=== PATIENT | male | born 1970 | race African-American/Black ===

== ENCOUNTER → 2016-02-29 | Outpatient (RCR) | payer MEDICAID ==
[2015-12-01 13:39] LABS: BASOPHILS # (AUTO) 0.1 10^3/uL (0.0-0.1); BASOPHILS % (AUTO) 1 % (0-10); EOSINOPHILS # (AUTO) 0.5 10^3/uL (0.0-0.3); EOSINOPHILS % (AUTO) 6 % (0-10); LYMPHOCYTES # (AUTO) 1.4 X 10^3 (1.0-4.0); LYMPHOCYTES % (AUTO) 18 % (12-44); MEAN CORPUSCULAR HEMOGLOBIN 26 PG (25-34); MEAN CORPUSCULAR HGB CONC 32 G/DL (32-36); MEAN CORPUSCULAR VOLUME 82 FL (80-99); MEAN PLATELET VOLUME 10.2 FL (7.4-10.4); MONOCYTES # (AUTO) 0.8 X 10^3 (0.0-1.0); MONOCYTES % (AUTO) 10 % (0-12); NEUTROPHILS # (AUTO) 5.3 X 10^3 (1.8-7.8); NEUTROPHILS % (AUTO) 66 % (42-75); PLATELET COUNT 290 10^3/uL (130-400); RED CELL DISTRIBUTION WIDTH 14.1 % (10.0-14.5); WHITE BLOOD COUNT 8.1 10^3/uL (4.3-11.0)
[2015-12-01 14:36] LABS: ALBUMIN 3.5 G/DL (3.2-4.5); BILIRUBIN,TOTAL 0.3 MG/DL (0.1-1.0); CALCIUM 8.6 MG/DL (8.5-10.1); CREATININE SERUM 4.54 MG/DL (0.60-1.30); POTASSIUM 4.1 MMOL/L (3.6-5.0); TOTAL PROTEIN 6.3 G/DL (6.4-8.2)
[2015-12-01 15:26] LABS: RED BLOOD COUNT 3.3 10^6/uL (4.35-5.85); RETICULOCYTE % 3.13 % (0.50-2.40)
[2015-12-01 17:06] LABS: %SAT TOTAL IRON BINDING CAPIC 18 % (15-50); TIBC 280 ug/dL (280-380)
[2015-12-02 07:42] LABS: UIBC 230 ug/dL (55-450)
[2015-12-02 07:43] LABS: FERRITIN 239 ng/mL (25-300)
[2015-12-16 10:43] LABS: BASOPHILS # (AUTO) 0.1 10^3/uL (0.0-0.1); BASOPHILS % (AUTO) 1 % (0-10); EOSINOPHILS # (AUTO) 0.4 10^3/uL (0.0-0.3); EOSINOPHILS % (AUTO) 5 % (0-10); LYMPHOCYTES # (AUTO) 1.5 X 10^3 (1.0-4.0); LYMPHOCYTES % (AUTO) 16 % (12-44); MEAN CORPUSCULAR HGB CONC 32 G/DL (32-36); MEAN CORPUSCULAR VOLUME 83 FL (80-99); MONOCYTES # (AUTO) 0.9 X 10^3 (0.0-1.0); MONOCYTES % (AUTO) 10 % (0-12); NEUTROPHILS # (AUTO) 6.3 X 10^3 (1.8-7.8); NEUTROPHILS % (AUTO) 69 % (42-75); PLATELET COUNT 220 10^3/uL (130-400); RED BLOOD COUNT 3.59 10^6/uL (4.35-5.85); WHITE BLOOD COUNT 9.2 10^3/uL (4.3-11.0)
[2015-12-16 10:48] LABS: MEAN CORPUSCULAR HEMOGLOBIN 26 PG (25-34)
[2015-12-16 11:46] LABS: ALBUMIN 3.8 G/DL (3.2-4.5); BILIRUBIN,TOTAL 0.4 MG/DL (0.1-1.0); CALCIUM 9.4 MG/DL (8.5-10.1); CREATININE SERUM 5.08 MG/DL (0.60-1.30); POTASSIUM 4.6 MMOL/L (3.6-5.0); TOTAL PROTEIN 6.8 G/DL (6.4-8.2)
[2016-02-19 10:26] LABS: BASOPHILS # (AUTO) 0.1 10^3/uL (0.0-0.1); BASOPHILS % (AUTO) 1 % (0-10); EOSINOPHILS # (AUTO) 0.6 10^3/uL (0.0-0.3); EOSINOPHILS % (AUTO) 10 % (0-10); LYMPHOCYTES # (AUTO) 1.3 X 10^3 (1.0-4.0); LYMPHOCYTES % (AUTO) 22 % (12-44); MEAN CORPUSCULAR HEMOGLOBIN 26 PG (25-34); MEAN CORPUSCULAR HGB CONC 33 G/DL (32-36); MEAN CORPUSCULAR VOLUME 79 FL (80-99); MEAN PLATELET VOLUME 11.6 FL (7.4-10.4); MONOCYTES # (AUTO) 0.4 X 10^3 (0.0-1.0); MONOCYTES % (AUTO) 7 % (0-12); NEUTROPHILS # (AUTO) 3.6 X 10^3 (1.8-7.8); NEUTROPHILS % (AUTO) 60 % (42-75); PLATELET COUNT 200 10^3/uL (130-400); RED BLOOD COUNT 4.94 10^6/uL (4.35-5.85); RED CELL DISTRIBUTION WIDTH 14.4 % (10.0-14.5)
[2016-02-19 10:50] LABS: ALBUMIN 3.8 G/DL (3.2-4.5); BILIRUBIN,TOTAL 0.4 MG/DL (0.1-1.0); CALCIUM 8.9 MG/DL (8.5-10.1); CREATININE SERUM 5.55 MG/DL (0.60-1.30); POTASSIUM 3.8 MMOL/L (3.6-5.0); TOTAL PROTEIN 6.9 G/DL (6.4-8.2)
[~2016-02-29] MED LIST: ACHYD1T PO; AGM875T PO; ALB0.5V; ALBU17AE3 IH; ALBU2.5V4 INH; ALBU2.5V4 NEB; AMLO10TA PO; AMLO5TAB2 PO; ASP81CT PO; ASPI-892 PO; ATEN-147 PO; ATEN50TA PO; AZIT-21 PO; Azithromycin PO; BUDE6HFA IH; BUDE6HFA INH; CEFD300C3 PO; CLON0.2T PO; CLON0.2T12 PO; DOXY-13 PO; DOXY100C2 PO; DULO30CA3 PO; FAMO20TA5 PO; FLUT1AER IH; FURO40TA4 PO; FURO80TA3 PO; GABA600T PO; GABA600T2 PO; GBPN600T PO; GLYB5TAB3 PO; GLYB5TAB6 PO; GUAI120013 PO; HYDR-3922 PO; Hydralazine Hcl PO; INSU100I14 SQ; INSU100V5 SQ; INSU300I SQ; IPRA3AMP IH; LISI10TA PO; LISI10TA2 PO; LISI1TAB78 PO; LISI40TA PO; Lisinopril PO; MAGN400T29 PO; METO10TA7 PO; METO200T32 PO; MINO2.5T PO; MONT10TA21 PO; MONT10TA24 PO; MTL5T PO; Metoprolol Succinate PO; NAPR-243 PO; ONDA8TAB6 PO; OXYC-272 PO; OXYC-465 PO; OXYC30TA80 PO; PRD20T PO; PRED10TA PO; Prednisone PO; SULF1TAB38 PO; SUMA100T3 PO; TEST200V27 INJ; TRAM50TA2 PO; neurontin; oxycodone
== END | disposition home or self-care (01) ==
LOC: ONC 12-01 13:14
PROVIDERS: ATTEND Internal Medicine Hematology & Oncology
DX: D50.9 Iron deficiency anemia, unspecified (principal); N28.89 Other specified disorders of kidney and ureter; E11.22 Type 2 diabetes mellitus with diabetic chronic kidney disease; I12.9 Hypertensive chronic kidney disease with stage 1 through stage 4 chronic kidney disease, or unspecified chronic kidney disease; N18.9 Chronic kidney disease, unspecified; J45.909 Unspecified asthma, uncomplicated; E66.01 Morbid (severe) obesity due to excess calories; Z68.41 Body mass index [BMI] 40.0-44.9, adult; Z79.4 Long term (current) use of insulin; Z79.899 Other long term (current) drug therapy
CPT/HCPCS: 36415; 80053; 82728; 83540; 83735; 85025; 85045; 93005; 99213

== ENCOUNTER 2016-03-25 14:19 | Outpatient (RCR) | payer MEDICAID ==
[2016-03-07 12:31] LABS: BASOPHILS # (AUTO) 0.1 10^3/uL (0.0-0.1); BASOPHILS % (AUTO) 1 % (0-10); EOSINOPHILS # (AUTO) 0.3 10^3/uL (0.0-0.3); EOSINOPHILS % (AUTO) 5 % (0-10); LYMPHOCYTES # (AUTO) 1.7 X 10^3 (1.0-4.0); LYMPHOCYTES % (AUTO) 30 % (12-44); MEAN CORPUSCULAR HEMOGLOBIN 26 PG (25-34); MEAN CORPUSCULAR HGB CONC 35 G/DL (32-36); MEAN CORPUSCULAR VOLUME 75 FL (80-99); MEAN PLATELET VOLUME 10.4 FL (7.4-10.4); MONOCYTES # (AUTO) 0.5 X 10^3 (0.0-1.0); MONOCYTES % (AUTO) 9 % (0-12); NEUTROPHILS # (AUTO) 3.2 X 10^3 (1.8-7.8); NEUTROPHILS % (AUTO) 56 % (42-75); PLATELET COUNT 316 10^3/uL (130-400); RED BLOOD COUNT 5.23 10^6/uL (4.35-5.85); RED CELL DISTRIBUTION WIDTH 14.4 % (10.0-14.5); WHITE BLOOD COUNT 5.7 10^3/uL (4.3-11.0)
[2016-03-07 13:40] LABS: ALBUMIN 3.8 G/DL (3.2-4.5); BILIRUBIN,TOTAL 0.4 MG/DL (0.1-1.0); CALCIUM 8.1 MG/DL (8.5-10.1); CREATININE SERUM 5.52 MG/DL (0.60-1.30); POTASSIUM 3.7 MMOL/L (3.6-5.0); TOTAL PROTEIN 6.7 G/DL (6.4-8.2)
[2016-03-18 09:35] LABS: BASOPHILS % (AUTO) 1 % (0-10); EOSINOPHILS # (AUTO) 0.2 10^3/uL (0.0-0.3); EOSINOPHILS % (AUTO) 3 % (0-10); LYMPHOCYTES # (AUTO) 1.5 X 10^3 (1.0-4.0); LYMPHOCYTES % (AUTO) 28 % (12-44); MEAN CORPUSCULAR HEMOGLOBIN 26 PG (25-34); MEAN CORPUSCULAR HGB CONC 35 G/DL (32-36); MEAN CORPUSCULAR VOLUME 76 FL (80-99); MEAN PLATELET VOLUME 11.9 FL (7.4-10.4); MONOCYTES # (AUTO) 0.4 X 10^3 (0.0-1.0); MONOCYTES % (AUTO) 6 % (0-12); NEUTROPHILS # (AUTO) 3.5 X 10^3 (1.8-7.8); NEUTROPHILS % (AUTO) 62 % (42-75); PLATELET COUNT 210 10^3/uL (130-400); RED BLOOD COUNT 5.26 10^6/uL (4.35-5.85); RED CELL DISTRIBUTION WIDTH 14.4 % (10.0-14.5); WHITE BLOOD COUNT 5.6 10^3/uL (4.3-11.0)
[2016-03-18 09:52] LABS: ALBUMIN 3.6 G/DL (3.2-4.5); BILIRUBIN,TOTAL 0.4 MG/DL (0.1-1.0); CALCIUM 7.3 MG/DL (8.5-10.1); CREATININE SERUM 7.01 MG/DL (0.60-1.30); POTASSIUM 3.1 MMOL/L (3.6-5.0); TOTAL PROTEIN 6.7 G/DL (6.4-8.2)
[2016-03-25 14:33] LABS: BASOPHILS # (AUTO) 0.1 10^3/uL (0.0-0.1); BASOPHILS % (AUTO) 1 % (0-10); EOSINOPHILS # (AUTO) 0.4 10^3/uL (0.0-0.3); EOSINOPHILS % (AUTO) 10 % (0-10); LYMPHOCYTES # (AUTO) 1.7 X 10^3 (1.0-4.0); LYMPHOCYTES % (AUTO) 46 % (12-44); MEAN CORPUSCULAR HEMOGLOBIN 27 PG (25-34); MEAN CORPUSCULAR HGB CONC 35 G/DL (32-36); MEAN CORPUSCULAR VOLUME 76 FL (80-99); MEAN PLATELET VOLUME 10.6 FL (7.4-10.4); MONOCYTES # (AUTO) 0.3 X 10^3 (0.0-1.0); MONOCYTES % (AUTO) 7 % (0-12); NEUTROPHILS # (AUTO) 1.4 X 10^3 (1.8-7.8); NEUTROPHILS % (AUTO) 36 % (42-75); PLATELET COUNT 131 10^3/uL (130-400); RED BLOOD COUNT 4.89 10^6/uL (4.35-5.85); RED CELL DISTRIBUTION WIDTH 14.8 % (10.0-14.5); WHITE BLOOD COUNT 3.8 10^3/uL (4.3-11.0)
[2016-03-25 14:52] LABS: ALBUMIN 3.6 G/DL (3.2-4.5); BILIRUBIN,TOTAL 0.6 MG/DL (0.1-1.0); POTASSIUM 3.1 MMOL/L (3.6-5.0); TOTAL PROTEIN 6.5 G/DL (6.4-8.2)
== END 2016-06-05 | disposition home or self-care (01) ==
LOC: ONC 14:19
PROVIDERS: ATTEND Internal Medicine Hematology & Oncology
DX: D50.9 Iron deficiency anemia, unspecified (principal); N28.89 Other specified disorders of kidney and ureter; E11.22 Type 2 diabetes mellitus with diabetic chronic kidney disease; I12.9 Hypertensive chronic kidney disease with stage 1 through stage 4 chronic kidney disease, or unspecified chronic kidney disease; N18.9 Chronic kidney disease, unspecified; J45.909 Unspecified asthma, uncomplicated; E66.01 Morbid (severe) obesity due to excess calories; Z68.41 Body mass index [BMI] 40.0-44.9, adult; Z79.4 Long term (current) use of insulin; Z79.899 Other long term (current) drug therapy
CPT/HCPCS: 36415; 80053; 85025

== ENCOUNTER → 2016-05-11 | Outpatient (CLI) | payer MEDICARE, MEDICAID ==
--- NOTE | 2016-05-11 16:11 | Diagnostic Imaging Report ---
PROCEDURE: CT chest, abdomen, and pelvis without contrast. TECHNIQUE: Multiple contiguous axial images were obtained through the chest, abdomen, and pelvis without the use of intravenous contrast. INDICATION: Lung nodules. The previous CT chest exam performed on 12/22/15 noted multiple bilateral pulmonary nodules. These nodules had increased in size and number since the prior CT chest exam of 04/21/15. FINDINGS: On this exam, the pulmonary nodules are again identified. On the prior exam, there is a 5.6 mm nodule in the right upper lobe and a second slightly smaller nodule nearby. On this exam, the 5.6 mm nodule is again identified and essentially no different. However, the other nodule is not well visualized. The 3.3 mm nodule in the right upper lobe and the 5.4 mm nodule in the right midlung seen previously cannot be visualized with certainty either. The 3 minute nodules along the periphery of the right lung base seen previously are again evident but do seem slightly less conspicuous than on the prior exam. The 14.3 mm pleural-based nodule along the periphery of the right lower lobe seen previously has decreased in size and now measures 9.8 mm. The previous study also identified a 5.8 mm nodule in the left upper lung. This now measures only 3 mm. The 4 mm nodule in this area seen previously is difficult to identify. The 5 mm nodule in the lingula seen previously has decreased in size and now measures 3.6 mm. The previous study did also reveal a few nodes in the right paratracheal region. These had a conglomerate size of approximately 16.2 x 22.7 mm. Those nodes are much smaller on this exam and now measure 6.7 x 12.2 mm. The mediastinal stranding noted on the previous study is also less conspicuous on this exam. The heart is stable in size. The aorta is not abnormally dilated. The thyroid gland is generally unremarkable. The lungs are clear. There is no sign of failure, pneumonia or pleural effusion. The images through the abdomen do show that in the interval since the previous CT chest and abdomen exam of 04/21/15, a sizable 4.4 x 7.5 cm soft tissue density has developed between the umbilicus and the anterior abdominal wall. This finding is of uncertain etiology. This could be secondary to scar formation as the previous exam did note a ventral hernia. The hernia appears to have been repaired in the interval since the prior exam. Correlation with the patient's history. It would be less likely that this is related to a neoplastic mass. Also, in the interval since the prior exam, a peritoneal dialysis catheter has been inserted on the right. The tip of the catheter is in the right lower quadrant. The 1.9 cm exophytic rounded area of diminished density along the anterior aspect of the right kidney seen previously is again evident and no different. The kidneys are otherwise unchanged. There is perinephric stranding about both kidneys. This is similar to the prior study. The liver, spleen, pancreas, adrenals, gallbladder, aorta and inferior vena cava are unremarkable for an acute abnormality. A very small collection of fluid has developed along the periphery of the right lobe of the liver. The stomach is not well distended and consequently difficult to assess. The images through the pelvis show no sign of a pelvic mass or of a free fluid collection. The urinary bladder and prostate gland are grossly unremarkable. The appendix was not particularly well visualized. The bone windows show no sign of a fracture or of a destructive lesion. IMPRESSION: 1. The appearance of the chest has improved as the pulmonary nodules seen on the prior exam have decreased in size. There is no acute cardiopulmonary abnormality identified. 2. In the interval since the prior exam, there has been repair of the ventral hernia seen on the previous study of 04/21/15. The sizable soft tissue density interposed now between the umbilicus and the anterior abdominal wall is probably secondary to scar formation. If further evaluation of this area is desired, then ultrasound would be recommended. 3. There has also been interval insertion of a peritoneal dialysis catheter. The distal portion of the catheter is coiled on itself in the right lower quadrant. 4. There is no acute abnormality of the abdomen or pelvis. 5. The exophytic nodule along the right kidney seen previously is again evident and no different. Dictated by: Dictated on workstation # [id number]
== END ==
LOC: RAD 12:47
PROVIDERS: ATTEND Internal Medicine Hematology & Oncology
DX: R91.8 Other nonspecific abnormal finding of lung field (principal); N28.9 Disorder of kidney and ureter, unspecified; C64.9 Malignant neoplasm of unspecified kidney, except renal pelvis; C78.00 Secondary malignant neoplasm of unspecified lung; Z96.89 Presence of other specified functional implants
CPT/HCPCS: 71250; 74176

== ENCOUNTER → 2016-08-23 | Outpatient (CLI) | payer MEDICARE, MEDICAID ==
[~2016-08-23] MED LIST changes: -METO200T32 PO; +METO200T4 PO
--- NOTE | 2016-08-23 11:04 | Diagnostic Imaging Report ---
PROCEDURE: CT chest, abdomen, and pelvis without contrast. TECHNIQUE: Multiple contiguous axial images were obtained through the chest, abdomen, and pelvis without the use of intravenous contrast. INDICATION: Renal cell carcinoma, followup. COMPARISON: 05/11/2016. FINDINGS: CT CHEST: There is diminished nodule previously seen in the lateral aspect of the right lung base, now reduced to a curvilinear line which may represent the remaining focal scar. There is a 4 mm nodule in the lateral aspect of the right lower lobe just posterior to the major fissure, axial image 37 without change from the previous study. There is also a 5 mm nodule in the lingula, image 38 without significant change from the previous scan. There is mild atelectasis in the lung bases. No significant consolidation. No pleural effusion. There is a tiny pericardial effusion. The heart size is normal. No significantly enlarged lymph nodes in the mediastinum. The lokesh are not opacified on this unenhanced exam with no obvious hilar mass or lymphadenopathy. No axillary lymphadenopathy. Bilateral gynecomastia is seen. The osseous structures demonstrate mild degenerative changes. CT ABDOMEN AND PELVIS: The liver, the spleen, the pancreas and the adrenal glands appear grossly unremarkable for unenhanced exam. There is a 2.2 cm anteriorly exophytic lesion arising from the anterior aspect of the right kidney with measurements obtained in the transverse dimension as the interface with the kidney is not delineated on this unenhanced exam. There is question of minimal increase in size compared to 1.9 cm measurement previously. There is no hydronephrosis. No urinary tract stone is seen. The urinary bladder is associated with wall thickening similar to 05/11/2016 exam. There is minimal amount of ascites, expected finding with a peritoneal dialysis catheter in place. There is also an abdominal wall fluid collection which appears to be between the abdominal wall deep layers but does not extend deep to a suggested mesh. This is probably a seroma and measures 5.6 x 2.9 x 4.5 cm and appears unchanged. There is no evidence of hernia recurrence, however there is abdominal wall laxity and diastasis of the recti seen. The abdominal aorta is normal in caliber. No paraaortic significantly enlarged lymph nodes are seen. The osseous structures demonstrate mild degenerative changes at the SI joints with no destructive mass seen. IMPRESSION: CT CHEST: 1. Near-complete resolution of previously seen 1 cm right lower lobe nodule with remaining curvilinear density suggestive of scarring. 2. Stable nonspecific nodules measuring 4 mm in the right lower lobe and 5 mm in the lingula. CT ABDOMEN AND PELVIS: 1. Suggestion of minimal enlargement in the right kidney mass, exophytic anteriorly. 2. Stable thickening in the urinary bladder wall could relate to cystitis or chronic postobstructive changes. 3. Unchanged fluid collection along the abdominal wall, presumably a seroma. Dictated by: Dictated on workstation # [id number]
== END ==
LOC: RAD 07:36
PROVIDERS: ATTEND Internal Medicine Hematology & Oncology
DX: R91.8 Other nonspecific abnormal finding of lung field (principal); C64.1 Malignant neoplasm of right kidney, except renal pelvis
CPT/HCPCS: 71250; 74176

== ENCOUNTER → 2016-12-22 | Outpatient (CLI) | payer MEDICARE, MEDICAID ==
--- NOTE | 2016-12-22 16:31 | Diagnostic Imaging Report ---
PROCEDURE: CT chest, abdomen, and pelvis without contrast. TECHNIQUE: Multiple contiguous axial images were obtained through the chest, abdomen, and pelvis without the use of intravenous contrast. INDICATION: Kidney cancer. Surveillance imaging. COMPARISON: 08/23/2016. CT CHEST FINDINGS: No endoluminal lesion in the trachea or central bronchi. No pulmonary mass or consolidation. There is a round 4 mm nodule within the right middle lobe, which is either new or increasing in size since prior examination. 4 mm nodule in the anterior aspect of the right lower lobe is unchanged. The 5 mm nodule seen in the lingula has resolved. Additional scattered punctate nodules in the lung bases are stable. Thyroid is normal. No supraclavicular or axillary lymphadenopathy. No mediastinal, discrete hilar, or juxtaphrenic lymphadenopathy. Heart is normal in size without pericardial effusion. Normal caliber thoracic aorta. No pleural effusion or pneumothorax. No concerning focal osseous lesions. IMPRESSION: 1. New or enlarging 4 mm nodule within the right middle lobe is now present. There are additional numerous small round micronodules in the lung bases that are unchanged. Attention on followup imaging is advised as this could represent a metastatic focus, although an inflammatory/infectious nodule could also have this appearance. CT ABDOMEN AND PELVIS FINDINGS: Evaluation of the abdominal viscera is limited without IV contrast. Allowing for this, the unenhanced liver, gallbladder, spleen, and pancreas are grossly normal. The isodense ovoid mass in the upper pole of the right kidney is unchanged measuring approximately 2.1 cm in transverse dimension. No new discrete renal mass by noncontrast imaging. No obstructive uropathy or urinary tract calculi. Urinary bladder is decompressed, limiting evaluation. No pericolonic inflammatory changes. A percutaneous catheter is in place likely representing a peritoneal dialysis catheter. There is no loculated fluid around the tip of the catheter to indicate pseudocyst formation. The mildly complicated fluid collection in the midline of the lower abdomen is stable in size measuring approximately 5 x 2.5 cm. An adjacent small fat-containing ventral hernia is unchanged. No abdominal lymphadenopathy. Numerous borderline enlarged bilateral inguinal lymph nodes are unchanged. No concerning osseous abnormality in the abdomen or pelvis. IMPRESSION: 1. Stable size of right renal mass. 2. No evidence of intra-abdominal lymphadenopathy or other changes of intra-abdominal metastases. 3. Midline subcutaneous fluid collection is unchanged and likely represents a postoperative seroma. Dictated by: Dictated on workstation # [id number]
== END ==
LOC: RAD 13:29
PROVIDERS: ATTEND Internal Medicine Hematology & Oncology
DX: C64.9 Malignant neoplasm of unspecified kidney, except renal pelvis (principal); C78.00 Secondary malignant neoplasm of unspecified lung; R91.8 Other nonspecific abnormal finding of lung field
CPT/HCPCS: 71250; 74176

== ENCOUNTER → 2017-04-11 | Outpatient (CLI) | payer MEDICARE, MEDICAID ==
[~2017-04-11] MED LIST changes: -METO200T4 PO; +METO200T48 PO
--- NOTE | 2017-04-11 09:02 | Diagnostic Imaging Report ---
PROCEDURE: CT chest, abdomen, and pelvis without contrast. TECHNIQUE: Multiple contiguous axial images were obtained through the chest, abdomen, and pelvis without the use of intravenous contrast. INDICATION: History of renal cell carcinoma. Followup. COMPARISON: 12/22/2016 FINDINGS: CT chest: Multiple small pulmonary micronodules are again identified, bilaterally. Overall, size and distribution is stable. Reference 4 mm micronodule described in the right middle lobe on prior exam near the minor fissure is stable at 4 mm (image 30, series 2). No new dominant pulmonary nodule or mass is identified. There is no focal consolidation, pleural effusion, nor pneumothorax. Cardiomediastinal structures show normal heart size. There is small pericardial effusion. No pathologically enlarged or morphologically abnormal adenopathy is seen within the mediastinum, lokesh, nor axilla. Bony structures show age-related degenerative changes of the thoracic spine. No acute bony abnormalities are seen. Note is made of bilateral gynecomastia. CT abdomen: Partially exophytic mass type lesion is again identified arising from the anterior margins of the right kidney. It measures approximately 3.2 x 2.7 cm on today's exam. This is similar in comparison to similar measurements on prior study of 2.3 x 2.9 cm. There is persistent stranding of bilateral perirenal fat. This is stable compared to prior exam. No abnormal perirenal adenopathy is seen. Left kidney continues to have an unremarkable noncontrast CT appearance. The spleen, liver, adrenal glands, and pancreas have an unremarkable noncontrast CT appearance. The indwelling peritoneal dialysis catheter is noted. There is small amount of free air. There is no large amount of free fluid or loculated air-fluid collection. Periumbilical hernia is again identified. Note is again made of prominent density associated with the hernia, measuring approximately 4.9 x 3.9 cm. This is slightly decreased in size compared to 6.2 x 3 cm previously. Small amount of fluid is also noted within the hernia sac on the left. Bony structures show age-related degenerative changes. No acute osseous abnormalities are seen. CT pelvis: Urinary bladder is unopacified. No calculi are seen within the urinary bladder. There is no loculated fluid collection, free fluid or free air within the pelvis. No abnormal lymph nodes are identified. Bony structures show no acute abnormalities. IMPRESSION: 1. Multiple pulmonary micronodules are again identified, bilaterally. Overall size and distribution is stable. Additionally, reference lesion seen within the right middle lobe on prior exam is also stable. 2. Although the margins of the right renal mass are not well defined on today's exam given the lack of IV contrast, there does appear to have been some interval growth when compared to 12/22/2016. 3. Periumbilical hernia. Again, there is focal density adjacent to the hernia, which may be on a postsurgical basis. 4. Small amount of pneumoperitoneum; likely related to indwelling peritoneal dialysis catheter. Dictated by: Dictated on workstation # [id number]
== END ==
LOC: RAD 08:03
PROVIDERS: ATTEND Internal Medicine Hematology & Oncology
DX: C64.1 Malignant neoplasm of right kidney, except renal pelvis (principal); C78.02 Secondary malignant neoplasm of left lung; R91.8 Other nonspecific abnormal finding of lung field; K42.9 Umbilical hernia without obstruction or gangrene; Z99.2 Dependence on renal dialysis
CPT/HCPCS: 71250; 74176

== ENCOUNTER 2017-05-18 21:18 | Emergency (ER) | payer MEDICARE, MEDICAID ==
[~2017-05-18] VITALS: Ht 175.3 cm; Wt 135.4 kg
[~2017-05-18 21:18] MED LIST changes: -IPRA3AMP IH; +IPRA3AMP31 IH
--- NOTE | 2017-05-18 21:56 | ED Respiratory ---
General Chief Complaint: Respiratory Problems Stated Complaint: FEVER 103.9, STREP Nursing Triage Note: Patient reports being diagnosed with strep throat, on monday and started on a z-pack. patient reports that he has gotten worse since then and feels like he is having a hard time breathing. Source: patient Exam Limitations: no limitations History of Present Illness Date Seen by Provider: May 18, 2017 Time Seen by Provider: 21:54 Initial Comments To ER by with c/o fever up to 103.9 earlier today, nonproductive cough, shortness of breath on Monday05/15/17 he was seen at [facility] and diagnosed with strep throat via a positive rapid strep test. He was having a sore throat at the time. He was given Zithromax which he is still on. He states that his throat feels better but he now feels more short of breath and his fevers are persisting. 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 Follows with oncology at [facility]. He does do peritoneal dialysis at home nightly. Timing/Duration: constant Severity: moderate Modifying Factors: Improves With Coughing Associated Symptoms: shortness of breath, wheezing Allergies and Home Medications Allergies Coded Allergies: No Known Drug Allergies (Unverified , 08/05/15) Home Medications Albuterol 17 Gm Inh, 2 PUFF IH QID PRN for SHORTNESS OF BREATH, (Reported) Albuterol Sulfate 0.83 Mg/Ml Solution, 2.5 MG INH Q4H PRN for SHORTNESS OF BREATH, (Reported) Amlodipine Besylate 5 Mg Tablet, 5 MG PO DAILY, (Reported) Aspirin 81 Mg Tabec, 81 MG PO HS, (Reported) Fluticasone/Vilanterol 1 Each Blst.w.dev, 1 EACH IH DAILY, (Reported) Furosemide 40 Mg Tablet, 40 MG PO UD, (Reported) Takes Tues, Thurs, Sat, Sun Hydralazine HCl 10 Mg Tablet, 25 MG PO QID, (Reported) Insulin Aspart 100 Unit/1 Ml Insuln.pen, 15-30 UNITS SQ AC, (Reported) BASES ON FOOD INTAKE Insulin Glargine,Hum.rec.anlog 300 Unit/1 Ml Insuln.pen, 15 UNIT SQ 7PM, ( Reported) Metolazone 10 Mg Tablet, 10 MG PO DAILY, (Reported) Metoprolol Succinate 200 Mg Tab.er.24h, 100 MG PO BID, (Reported) Minoxidil 2.5 Mg Tablet, 2 TAB PO BID Prescribed by: ARDEN JAUREGUI on 01/12/16 0835 Montelukast Sodium 10 Mg Tablet, 10 MG PO HS, (Reported) Ondansetron HCl 8 Mg Tablet, 8 MG PO PRN, (Reported) Oxycodone HCl 30 Mg Tablet, 30 MG PO QID PRN for PAIN Prescribed by: ARDEN JAUREGUI on 01/12/16 0831 Sumatriptan Succinate 100 Mg Tablet, 100 MG PO PRN, (Reported) Patient Home Medication List Home Medication List Reviewed: Yes Review of Systems Constitutional: see HPI, chills, fever EENTM: see HPI Respiratory: see HPI, cough, short of breath, wheezing Genitourinary: no symptoms reported Musculoskeletal: no symptoms reported Skin: no symptoms reported Psychiatric/Neurological: No Symptoms Reported Hematologic/Lymphatic: No Symptoms Reported Past Olrzruq-Mztqcj-Uetcza Hx Patient Social History Alcohol Use: Denies Use Recreational Drug Use: No Recent Foreign Travel: No Contact w/Someone Who Travel: No Recent Infectious Disease Expo: No Recent Hopitalizations: No Immunizations Up To Date Tetanus Booster (TDap): Unknown PED Vaccines UTD: No Date of Pneumonia Vaccine: Nov 07, 2015 Date of Influenza Vaccine: Nov 07, 2015 Seasonal Allergies Seasonal Allergies: Yes Past Medical History Surgeries: Yes (HERNIA REPAIR, MENISCUS REPAIR) Abdominal, Orthopedic Respiratory: Yes (ASTHMA, STABLE LUNG MASS, POSSIBLE NEW NODULE RIGHT LOWER LOBE) Asthma Currently Using CPAP: No Currently Using BIPAP: No Cardiac: Yes High Cholesterol, Hypertension Neurological: Yes Neuropathy Reproductive Disorders: No Sexually Transmitted Disease: No HIV/AIDS: No Renal Failure Gastrointestinal: Yes (TAKES PEPCID NEEDED) Abdominal Hernia, Gastroesophageal Reflux Musculoskeletal: Yes (MENISCUS TEAR RIGHT KNEE) Chronic Back Pain Endocrine: Yes (STARTED DIALYSIS IN NOVEMBER 2015) Diabetes, Insulin dep Loss of Vision: Bilateral Hearing Impairment: Denies Cancer: Yes (PATIENT BEING MONITORED BY DR. LINDER FOR LUNG AND RENAL MASSES) Psychosocial: No Integumentary: No Blood Disorders: Yes (ANEMIA) Adverse Reaction/Blood Tranf: No (N/A) Family Medical History Arthritis 19 MOTHER (grandmother) Asthma 19 MOTHER (grandmother) Cancer of mouth 19 MOTHER (throat) Hypertension 19 MOTHER (grandmother) Respiratory disorder 19 MOTHER (grandmother) Seizure disorder 19 MOTHER (aunt) Thyroid disease 19 MOTHER (aunt) No Family History of: AIDS Abdominal aortic aneurysm Calloway's disease Alcoholism Alzheimer's disease Cardiovascular disease Cataracts Colon cancer Completed stroke Congenital disease Congenital heart disease Coronary thrombosis Cystic fibrosis Deafness or hearing loss Dementia Diabetes mellitus Drug abuse Dysphasia Fibrocystic disease of breast Gastroenteritis Glaucoma Headache disorder Hypercholesterolemia Infertility Kidney disease Myocardial infarction Neoplasm Osteoporosis Parkinson's disease Severe allergy Tuberculosis Visual disorder Physical Exam Vital Signs Vital Signs - First Documented 05/18/17 05/18/17 21:28 22:22 Temp 101.1 Pulse 100 Resp 20 B/P (MAP) 179/84 (115) Pulse Ox 93 O2 Delivery Room Air Capillary Refill : Less Than 3 Seconds General Appearance: WD/WN, no apparent distress, other (oxygen saturation 90-94 % on room air) Eyes: Bilateral Eye Normal Inspection, Bilateral Eye PERRL, Bilateral Eye EOMI HEENT: PERRL/EOMI, normal ENT inspection Neck: non-tender, full range of motion Respiratory: no respiratory distress, no accessory muscle use, wheezing Cardiovascular: regular rate, rhythm, no murmur Gastrointestinal: normal bowel sounds, non tender, soft; No tenderness ( nontender to palpation) Neurologic/Psychiatric: alert, normal mood/affect, oriented x 3 Skin: normal color, warm/dry Focused Exam Lactate Level 05/18/17 22:07: Lactic Acid Level 0.94 Lactic Acid Level Laboratory Tests Test 05/18/17 22:07 Lactic Acid Level 0.94 MMOL/L (0.50-2.00) Progress/Results/Core Measures Suspected Sepsis Recent Fever Within 48 Hours: Yes Infection Criteria Present: Documented Infection New/Unexplained Altered Menta: No Sepsis Screen: Possible Sepsis Risk SIRS Temperature:101.1 Pulse: 100 Respiratory Rate: 20 Laboratory Tests 05/18/17 21:50: White Blood Count 5.1 Blood Pressure 179 /84 Mean: 115 05/18/17 22:07: Lactic Acid Level 0.94 Laboratory Tests 05/18/17 21:50: Creatinine 5.90H, Platelet Count 214, Total Bilirubin 0.4 Results/Orders Lab Results Laboratory Tests Test 05/18/17 21:50 05/18/17 22:07 Range/Units White Blood Count 5.1 4.3-11.0 10^3/uL Red Blood Count 2.92 L 4.35-5.85 10^6/uL Hemoglobin 9.3 L 13.3-17.7 G/DL Hematocrit 27 L 40-54 % Mean Corpuscular Volume 92 80-99 FL Mean Corpuscular Hemoglobin 32 25-34 PG Mean Corpuscular Hemoglobin Concent 35 32-36 G/DL Red Cell Distribution Width 12.5 10.0-14.5 % Platelet Count 214 130-400 10^3/uL Mean Platelet Volume 10.3 7.4-10.4 FL Neutrophils (%) (Auto) 63 42-75 % Lymphocytes (%) (Auto) 20 12-44 % Monocytes (%) (Auto) 14 H 0-12 % Eosinophils (%) (Auto) 2 0-10 % Basophils (%) (Auto) 1 0-10 % Neutrophils # (Auto) 3.2 1.8-7.8 X 10^3 Lymphocytes # (Auto) 1.0 1.0-4.0 X 10^3 Monocytes # (Auto) 0.7 0.0-1.0 X 10^3 Eosinophils # (Auto) 0.1 0.0-0.3 10^3/uL Basophils # (Auto) 0.0 0.0-0.1 10^3/uL Sodium Level 136 135-145 MMOL/L Potassium Level 4.6 3.6-5.0 MMOL/L Chloride Level 103 98-107 MMOL/L Carbon Dioxide Level 22 21-32 MMOL/L Anion Gap 11 5-14 MMOL/L Blood Urea Nitrogen 32 H 7-18 MG/DL Creatinine 5.90 H 0.60-1.30 MG/DL Estimat Glomerular Filtration Rate 12 BUN/Creatinine Ratio 5 Glucose Level 255 H 70-105 MG/DL Calcium Level 9.1 8.5-10.1 MG/DL Total Bilirubin 0.4 0.1-1.0 MG/DL Aspartate Amino Transf (AST/SGOT) 25 5-34 U/L Alanine Aminotransferase (ALT/SGPT) 13 0-55 U/L Alkaline Phosphatase 72 40-136 U/L B-Type Natriuretic Peptide 568.7 H <100.0 PG/ML Total Protein 7.1 6.4-8.2 GM/DL Albumin 3.7 3.2-4.5 GM/DL Monoscreen NEGATIVE NEGATIVE Group A Streptococcus Screen NEGATIVE NEGATIVE Lactic Acid Level 0.94 0.50-2.00 MMOL/L Micro Results Microbiology 05/18/17 Influenza Types A,B Antigen (ANKIT) - Final, Complete My Orders Orders - HARDY HUERTA HAND BLOCKER Cbc With Automated Diff (05/18/17 21:34) Rapid Strep A Screen (05/18/17 21:34) Monotest (05/18/17 21:34) Saline Lock/Iv-Start (05/18/17 21:34) BNP (05/18/17 21:52) Chest Pa/Lat (2 View) (05/18/17 21:52) Comprehensive Metabolic Panel (05/18/17 21:52) Methylprednisolone Sod Succ (Solu-Medrol (05/18/17 22:00) Albuterol/Ipra Inhalation Soln (Duoneb I (05/18/17 22:00) Svn Sm Volume Nebulizer Rt-Rfs (05/18/17 21:52) Influenza A And B Antigens (05/18/17 21:52) Ibuprofen Tablet (Motrin Tablet) (05/18/17 22:15) Blood Culture (05/18/17 22:08) Lactic Acid Analyzer (05/18/17 22:08) Ua Culture If Indicated (05/18/17 22:24) Piperacillin Sodium/Tazobactam (Zosyn Vi (05/18/17 22:30) Medications Given in ED Current Medications Medications Dose Ordered Sig/Hina Route Start Time Stop Time Status Last Admin Dose Admin Albuterol/ Ipratropium 3 ml ONCE ONCE INH 05/18/17 22:00 05/18/17 22:01 DC 05/18/17 22:22 3 ML Ibuprofen 800 mg ONCE ONCE PO 05/18/17 22:15 05/18/17 22:16 DC 05/18/17 22:32 800 MG Methylprednisolone Sodium Succinate 125 mg ONCE ONCE IVP 05/18/17 22:00 05/18/17 22:01 DC 05/18/17 22:32 125 MG Piperacillin Sod/ Tazobactam Sod 4.5 gm/Sodium Chloride 100 ml @ 200 mls/hr ONCE ONCE IV 05/18/17 22:30 05/18/17 22:59 DC 05/18/17 22:32 200 MLS/HR Vital Signs/I&O 05/18/17 05/18/17 21:28 22:22 Temp 101.1 Pulse 100 Resp 20 B/P (MAP) 179/84 (115) Pulse Ox 93 93 O2 Delivery Room Air Capillary Refill : Less Than 3 Seconds Blood Pressure Mean: 115 Departure Communication (Admissions) 2229-Pt does report improvement in his dyspnea after 1 duoneb treatment. Due to fevers persistent despite oral antibiotics at home for 4 days and oral chemotherapy, will need admission. We are unable to accomodate him here due to his nightly peritoneal dialysis requirements. Will work on arranging transfer to [facility] where he is established with Oncology Dr Ayon(?) and dialysis services are available. Blood cultures are pending, [id number]-Dr Hargrove hospitalist at [facility] has accepted him. Will await room number. Impression Primary Impression: Pneumonia Additional Impressions: Asthma exacerbation Chronic kidney disease Peritoneal dialysis status Metastatic renal cell carcinoma to lung Right lower lobe pneumonia Disposition: XFER SHT-TRM HOSP Condition: Stable Departure-Patient Inst. Referrals: [facility] (PCP) Primary Care Physician GALE SOLIZ (Family) Primary Care Physician HARDY HUERTA APRN May 18, 2017 21:56
[2017-05-18] MEDS ORDERED: methylPREDNISolone 125 MG (Solu-MEDROL) VIAL IVP ONE (22:00)
[2017-05-18] MEDS ORDERED: RT-ALBUTEROL/IPRATROPIUM 3 ML (DUONEB) VIAL INH ONE (22:00)
[2017-05-18 22:01] LABS: BASOPHILS % (AUTO) 1 % (0-10); EOSINOPHILS # (AUTO) 0.1 10^3/uL (0.0-0.3); EOSINOPHILS % (AUTO) 2 % (0-10); HEMATOCRIT 27 % (40-54); HEMOGLOBIN 9.3 G/DL (13.3-17.7); LYMPHOCYTES % (AUTO) 20 % (12-44); MEAN CORPUSCULAR HEMOGLOBIN 32 PG (25-34); MEAN CORPUSCULAR HGB CONC 35 G/DL (32-36); MEAN CORPUSCULAR VOLUME 92 FL (80-99); MEAN PLATELET VOLUME 10.3 FL (7.4-10.4); MONOCYTES # (AUTO) 0.7 X 10^3 (0.0-1.0); MONOCYTES % (AUTO) 14 % (0-12); NEUTROPHILS # (AUTO) 3.2 X 10^3 (1.8-7.8); NEUTROPHILS % (AUTO) 63 % (42-75); PLATELET COUNT 214 10^3/uL (130-400); RED BLOOD COUNT 2.92 10^6/uL (4.35-5.85); RED CELL DISTRIBUTION WIDTH 12.5 % (10.0-14.5); WHITE BLOOD COUNT 5.1 10^3/uL (4.3-11.0)
[2017-05-18] MEDS ORDERED: IBUPROFEN 800 MG (MOTRIN) TAB PO ONE (22:15)
[2017-05-18 22:17] LABS: ALBUMIN 3.7 GM/DL (3.2-4.5); BILIRUBIN,TOTAL 0.4 MG/DL (0.1-1.0); CALCIUM 9.1 MG/DL (8.5-10.1); CREATININE SERUM 5.9 MG/DL (0.60-1.30); POTASSIUM 4.6 MMOL/L (3.6-5.0); TOTAL PROTEIN 7.1 GM/DL (6.4-8.2)
[2017-05-18] MEDS ORDERED: PIPERACILLIN SODIUM/TAZOBACTAM 4.5 GM in NS (IVPB) 100 ML IV ONE (22:30)
[2017-05-19 01:15] VITALS: BP 178/94
--- NOTE | 2017-05-19 07:38 | Diagnostic Imaging Report ---
INDICATION: Cough and congestion COMPARISON: 01/21/2016 FINDINGS: Two views of the chest were obtained. Dialysis catheter has been removed. Heart size is normal. The pulmonary vessels do not appear congested. There is no pneumothorax or significant pleural fluid suspected. There is, however, patchy airspace disease throughout the right lung with a somewhat focal 2.3 cm masslike opacity in the lateral right midlung. There may be some minimal patchy alveolar changes on the left as well. Osseous structures appear unremarkable. IMPRESSION: Findings are most suggestive of a significant right-sided pneumonia with possible left basilar infiltrate as well. There is a 2.3 cm more focal nodular opacity lateral right midlung which is likely infiltrate, however, short-term followup study is recommended to document resolution. Dictated by: Dictated on workstation # [id number]
== END 2017-05-19 01:15 | disposition short-term general hospital (02) ==
LOC: EDUNIT# 21:18 → ER 21:19
DX: J18.1 Lobar pneumonia, unspecified organism (principal); J45.901 Unspecified asthma with (acute) exacerbation; C78.00 Secondary malignant neoplasm of unspecified lung; C64.9 Malignant neoplasm of unspecified kidney, except renal pelvis; E11.22 Type 2 diabetes mellitus with diabetic chronic kidney disease; I12.0 Hypertensive chronic kidney disease with stage 5 chronic kidney disease or end stage renal disease; N18.6 End stage renal disease; E78.00 Pure hypercholesterolemia, unspecified; K21.9 Gastro-esophageal reflux disease without esophagitis; E11.40 Type 2 diabetes mellitus with diabetic neuropathy, unspecified; Z99.2 Dependence on renal dialysis; Z79.82 Long term (current) use of aspirin; Z79.51 Long term (current) use of inhaled steroids; Z79.4 Long term (current) use of insulin; Z87.19 Personal history of other diseases of the digestive system
CPT/HCPCS: 36415; 71046; 80053; 83605; 83880; 85025; 86308; 87040; 87430; 87804; 94640; 96365; 96375

== ENCOUNTER 2017-10-12 13:05 | Outpatient (CLI) | payer MEDICARE, MEDICAID ==
[~2017-10-12 13:05] MED LIST changes: +AMLO5TAB7 PO
== END 2017-10-12 13:20 | disposition home or self-care (01) ==
LOC: SLEEP 13:05
PROVIDERS: ATTEND Internal Medicine Cardiovascular Disease
DX: G47.33 Obstructive sleep apnea (adult) (pediatric) (principal); G47.00 Insomnia, unspecified; G47.10 Hypersomnia, unspecified; R06.83 Snoring; I10 Essential (primary) hypertension

== ENCOUNTER → 2017-10-24 | Outpatient (CLI) | payer MEDICARE, MEDICAID | LOC: CARD 12:54 | PROVIDERS: ATTEND Physician Assistant | DX: I12.0 Hypertensive chronic kidney disease with stage 5 chronic kidney disease or end stage renal disease (principal); N18.6 End stage renal disease; E66.01 Morbid (severe) obesity due to excess calories; I27.20 Pulmonary hypertension, unspecified; R06.02 Shortness of breath; I08.1 Rheumatic disorders of both mitral and tricuspid valves | CPT/HCPCS: 93306 ==

== ENCOUNTER 2017-11-02 19:46 | Outpatient (CLI) | payer MEDICARE, MEDICAID | END 2017-11-03 06:00 | disposition home or self-care (01) | LOC: SLEEP 19:46 | PROVIDERS: ATTEND Otolaryngology Otolaryngology/Facial Plastic Surgery | DX: G47.33 Obstructive sleep apnea (adult) (pediatric) (principal); R06.83 Snoring | CPT/HCPCS: 95811 ==

== ENCOUNTER → 2017-11-16 | Outpatient (CLI) | payer MEDICARE, MEDICAID ==
--- NOTE | 2017-11-16 12:05 | Diagnostic Imaging Report ---
PROCEDURE: CT chest, abdomen, and pelvis without contrast. TECHNIQUE: Multiple contiguous axial images were obtained through the chest, abdomen, and pelvis without the use of intravenous contrast. INDICATION: Malignant neuroendocrine tumor. FINDINGS: The previous CT abdomen/pelvis exam of 04/11/2017 noted a periumbilical hernia as well as a 3.9 x 4.9 cm area of diminished density in the region of the hernia just to the right of midline. That finding is again evident and does not seem to have changed significantly. It now measures 3.6 x 5.3 cm. The prior study did note segments of small bowel extending through the hernia into the subcutaneous fat just to the left of the umbilicus. Those findings are again evident and no different as well. There is still no sign of a bowel obstruction. However, in the interval since the previous study, marked distortion of the subcutaneous fat along the right abdomen has developed. There is also thickening of the skin. These findings do suggest an inflammatory/infectious process. There is no sign of a discrete mass or abscess, however. The peritoneal drain on the right seen previously is again evident and seems unchanged in position. The previous exam also noted a 3.2 x 2.7 cm exophytic mass along the lateral aspect of the superior pole of the right kidney. This finding had increased in size from the prior exam of 12/22/2016 when it measured 2.3 x 2.9 cm. On this study, the mass is even greater in size. It is now estimated to be 3.2 x 4.5 cm. Consequently, I do feel that this finding should be considered neoplastic until proven otherwise. If further imaging is desired, then MRI would be recommended. As noted on the prior exam, there is perinephric stranding about both kidneys. There is no sign of hydronephrosis or obstruction of either collecting system, however. The liver, spleen, pancreas, adrenals, gallbladder, aorta, and inferior vena cava are unremarkable for an acute abnormality. The stomach is not well distended and consequently difficult to assess. There is no significant periaortic or retroperitoneal adenopathy. The urinary bladder and prostate gland are grossly unremarkable. There is no pelvic mass or free fluid collection noted. The appendix was not particularly well visualized, but there are no indirect signs of acute appendicitis. On the prior exam, there was a 4 mm nodule in the right mid lung. A few other much smaller nodules are also seen in the right lower lobe. On this exam, the 4 mm nodule is barely visualized. There are still a few minute nodules in the right lower lobe. The left lung is generally clear of nodule formation. There is scar formation along the periphery of the left upper lobe. There is no sign of failure, pneumonia, or pleural effusion to indicate an acute abnormality. The heart is stable in size. The aorta is not abnormally dilated. There is no obvious mediastinal or hilar adenopathy. The thyroid gland where visualized is unremarkable. The bone windows show no sign of a fracture or of a destructive lesion. IMPRESSION: 1. The poorly defined area of mixed density just to the right of the umbilical hernia seen previously measures slightly larger on this study. The hernia itself is essentially no different. The segments of bowel extending through the hernia into the subcutaneous fat of the left lower quadrant are unchanged as well, and there is no sign of a bowel obstruction. However, there is now considerable distortion of the subcutaneous fat of the right abdomen as well as thickening of the skin. This does suggest edema/inflammation. There is no mass or abscess visualized, however. 2. The soft tissue density along the lateral aspect of the right kidney seen previously has increased in size. This finding should be considered neoplastic until proven otherwise. Recommendations as above. 3. There is no acute abnormality of the abdomen or pelvis noted otherwise. 4. The 4 mm nodule in the right mid lung seen previously is barely visible. The other micronodules are essentially no different. No new nodule has developed. 5. There is no sign of an acute cardiopulmonary abnormality. Dictated by: Dictated on workstation # [id number]
== END ==
LOC: RAD 10:05
PROVIDERS: ATTEND Internal Medicine Hematology & Oncology
DX: C64.9 Malignant neoplasm of unspecified kidney, except renal pelvis (principal); C78.00 Secondary malignant neoplasm of unspecified lung; K42.9 Umbilical hernia without obstruction or gangrene
CPT/HCPCS: 71250; 74176

== ENCOUNTER 2017-11-23 10:08 | Outpatient (CLI) | payer MEDICARE, MEDICAID ==
[~2017-11-23] VITALS: Ht 175.3 cm; Wt 141.5 kg
[2017-11-23 10:18] VITALS: BP 143/76
[2017-11-23] MEDS ORDERED: GLIM2TAB PO (11:01)
[2017-11-23] MEDS ORDERED: INSU100I14 SQ (11:01)
[2017-11-23] MEDS ORDERED: FURO80TA3 PO ×2 (11:01)
[2017-11-23] MEDS ORDERED: METO100T12 PO (11:01)
[2017-11-23] MEDS ORDERED: RT-ALBUINH IH (11:01)
[2017-11-23] MEDS ORDERED: SUNI50CA PO (11:01)
[2017-11-23] MEDS ORDERED: MONT10TA24 PO (11:01)
[2017-11-23] MEDS ORDERED: CLON0.2T PO (11:01)
[2017-11-23] MEDS ORDERED: IPRA3AMP31 IH (11:01)
[2017-11-23] MEDS ORDERED: ASPI-999 PO (11:01)
[2017-11-23] MEDS ORDERED: CINA30TA2 PO (11:01)
[2017-11-23] MEDS ORDERED: GLIM1TAB PO (11:01)
[2017-11-23] MEDS ORDERED: NF-MINO10T PO (11:01)
[2017-11-23] MEDS ORDERED: CALC0.5C11 PO (11:01)
[2017-11-23] MEDS ORDERED: ALBU2.5V4 IH (11:01)
[2017-11-23] MEDS ORDERED: SPIR50TA4 PO (11:01)
[2017-11-23] MEDS ORDERED: TEMA30CA PO (11:01)
[2017-11-23] MEDS ORDERED: FAMO20TA3 PO (11:01)
[2017-11-23] MEDS ORDERED: OXYC30TA80 PO (11:01)
[2017-11-23] MEDS ORDERED: CLON0.1T PO (11:01)
== END 2017-11-23 10:35 | disposition home or self-care (01) ==
LOC: PREOP 10:08
PROVIDERS: ATTEND Orthopaedic Surgery
DX: Z01.818 Encounter for other preprocedural examination (principal)
CPT/HCPCS: 87081

== ENCOUNTER 2017-11-29 06:00 | Day surgery (SDC) | payer MEDICARE, MEDICAID ==
--- NOTE | 2017-11-20 11:52 | HISTORY AND PHYSICAL ---
DATE OF SERVICE: ADMISSION HISTORY AND PHYSICAL DATE OF SERVICE AND ADMISSION: 11/29/2017. This will be for outpatient surgery on 11/29/2017 for left knee arthroscopy. HISTORY OF PRESENT ILLNESS: The patient is a 47-year-old gentleman with a 1 month history of left knee pain and popping. Reports that he has felt as if his knee was locked and he had a limp for several minutes and finally had a very painful loud popping sensation with marked swelling. He is ambulating with crutches and had a cortisone injection without relief. He reports marked activity limitations because of the knee and due to failure to improve with conservative measures, the patient elected to proceed with surgical intervention. REVIEW OF SYSTEMS: No chest pain. No shortness of breath. No dysuria. PAST MEDICAL HISTORY: Hypertension, diabetes type 2, asthma, back pain, COPD, lung cancer, kidney cancer. PAST SURGICAL HISTORY: Right knee arthroscopy, herniorrhaphy, dialysis catheter placement. FAMILY HISTORY: Significant for hypertension and lung cancer. PRIMARY CARE PROVIDER: . MEDICATIONS: 1. NovoLog. 2. Toujeo. 3. Temazepam. 4. Glimepiride. 5. Metoprolol. 6. Amlodipine. 7. Sutent. 8. Sensipar. 9. Spironolactone. 10. Ellipta. 11. Promethazine. ALLERGIES: ADVAIR DISKUS. SOCIAL HISTORY: The patient denies alcohol and tobacco use. RADIOGRAPHS: Revealed well maintained joint spaces without acute abnormalities. PHYSICAL EXAMINATION: GENERAL: The patient is well developed, well nourished in no acute distress. HEENT: Normocephalic, atraumatic. Pupils are equal, round and reactive to light. Oropharynx is clear. NECK: Supple, no lymphadenopathy. LUNGS: Clear to auscultation bilaterally. HEART: Regular rate and rhythm. ABDOMEN: Soft, nontender, nondistended. EXTREMITIES EXAM: The left knee demonstrates a moderate effusion. There is no warmth or erythema. Sensation is intact distally. Range of motion is 0/0/100 with a negative anterior drawer, negative posterior drawer. No varus valgus laxity. He has marked pain with patellar loading. Crepitus noted with range of motion. He is tender along his anterior joint lines. He has anterior pain with Belkys's. IMPRESSION: Chondromalacia patella, left knee. PLAN: Left knee arthroscopy, chondroplasty. The risks, benefits, options, ramifications and recovery were discussed at length with the patient. He understands and wishes to proceed. Job ID: [id number] DocumentID: [id number] Dictated Date: 11/20/2017 11:19:39 Payroll Assistant Date: 11/20/2017 11:51:50 Dictated By: FARHAD EASTMAN MD
[~2017-11-29] VITALS: Ht 175.3 cm; Wt 141.5 kg
[~2017-11-29 06:00] MED LIST changes: +ALBU2.5V4 IH; +ASPI-999 PO; +CALC0.5C11 PO; +CINA30TA2 PO; +CLON0.1T PO; +FAMO20TA3 PO; +GLIM1TAB PO; +GLIM2TAB PO; +METO100T12 PO; +NF-MINO10T PO; +RT-ALBUINH IH; +SPIR50TA4 PO; +SUNI50CA PO; +TEMA30CA PO
--- OUTSIDE RECORDS SUMMARY | 2017-11-29 06:15 | XMS REPORT | Continuity of Care Document ---
Author Author [facility] Address Unknown Phone Unavailable Allergies Active Description Code Type Severity Reaction Onset Reported/Identified Relationship to Patient Clinical Status Yes No Known Drug Allergies [id number] Drug Allergy Mild N/A 06/11/2008 Yes No Known Drug Allergies [id number] Drug Allergy Unknown N/A 08/05/2015 Yes fluticasone [id number] Drug Allergy Unknown asthma attack 11/23/2017 Yes salmeterol [id number] Drug Allergy Unknown asthma attack 11/23/2017 Medications There is no data. Problems Date Dx Coded Attending Type Code Diagnosis Diagnosed By GEORGINA LINDER MD, Ot D50.9 IRON DEFICIENCY ANEMIA, UNSPECIFIED GEORGINA LINDER MD, Ot E11.22 TYPE 2 DIABETES MELLITUS W DIABETIC SCOOP FILLER GEORGINA LINDER MD, Ot E66.01 MORBID (SEVERE) OBESITY DUE TO EXCESS CA GEORGINA LINDER MD, Ot I12.9 HYPERTENSIVE CHRONIC KIDNEY DISEASE W ST GEORGINA LINDER MD Ot J45.909 UNSPECIFIED ASTHMA, UNCOMPLICATED GEORGINA LINDER MD, Ot N18.9 CHRONIC KIDNEY DISEASE, UNSPECIFIED GEORGINA LINDER MD, Ot N28.89 OTHER SPECIFIED DISORDERS OF KIDNEY AND GEORGINA LINDER MD Ot Z68.41 BODY MASS INDEX (BMI) 40.0-44.9, ADULT GEORGINA LINDER MD Ot Z79.4 HOSE SPRAYER (CURRENT) USE OF INSULIN GEORGINA LINDER MD, Ot Z79.899 OTHER HOSE SPRAYER (CURRENT) DRUG THERAPY 05/08/2010 Ot 844.9 SPRAIN OF KNEE LEG NOS 05/08/2010 Ot 959.7 LOWER LEG INJURY NOS 05/08/2010 Ot E000.8 OTHER EXTERNAL CAUSE STATUS 05/08/2010 Ot E928.9 ACCIDENT NOS 08/20/2010 Ot 682.6 CELLULITIS OF LEG 08/20/2010 Ot 709.9 SKIN DISORDER NOS 08/23/2010 Ot 682.6 CELLULITIS OF LEG 08/23/2010 Ot 916.4 INSECT BITE HIP LEG 08/23/2010 Ot E000.8 OTHER EXTERNAL CAUSE STATUS 08/23/2010 Ot E906.4 NONVENOM ARTHROPOD BITE 10/01/2010 GALE SOLIZ APRN 250.00 DIABETES MELLITUS 10/01/2010 GALE SOLIZ APRN 401.1 ESSENTIAL HYPERTENSION BENIGN 10/01/2010 GALE SOLIZ APRN 493.90 ASTHMA 10/01/2010 GALE SOLIZ APRN 724.2 lower back pain 10/01/2010 GALE SOLIZ APRN 780.52 insomnia 10/01/2010 250.00 DIABETES MELLITUS 10/01/2010 401.1 ESSENTIAL HYPERTENSION BENIGN 10/01/2010 493.90 ASTHMA 10/01/2010 724.2 lower back pain 10/01/2010 780.52 insomnia 10/01/2010 250.00 DIABETES MELLITUS 10/01/2010 401.1 ESSENTIAL HYPERTENSION BENIGN 10/01/2010 493.90 ASTHMA 10/01/2010 724.2 lower back pain 10/01/2010 780.52 insomnia 10/01/2010 250.00 DIABETES MELLITUS 10/01/2010 401.1 ESSENTIAL HYPERTENSION BENIGN 10/01/2010 493.90 ASTHMA 10/01/2010 724.2 lower back pain 10/01/2010 780.52 insomnia 10/01/2010 GALE SOLIZ APRN 250.00 DIABETES MELLITUS 10/01/2010 GALE SOLIZ APRN 401.1 ESSENTIAL HYPERTENSION BENIGN 10/01/2010 GALE SOLIZ APRN 493.90 ASTHMA 10/01/2010 GALE SOLIZ APRN 724.2 lower back pain 10/01/2010 GALE SOLIZ APRN 780.52 insomnia 10/01/2010 GALE SOLIZ APRN 250.00 DIABETES MELLITUS 10/01/2010 GALE SOLIZ APRN 401.1 ESSENTIAL HYPERTENSION BENIGN 10/01/2010 GALE SOLIZ APRN 493.90 ASTHMA 10/01/2010 GALE SOLIZ APRN 724.2 lower back pain 10/01/2010 GALE SOLIZ APRN 780.52 insomnia 10/01/2010 250.00 DIABETES MELLITUS 10/01/2010 401.1 ESSENTIAL HYPERTENSION BENIGN 10/01/2010 493.90 ASTHMA 10/01/2010 724.2 lower back pain 10/01/2010 780.52 insomnia 10/01/2010 250.00 DIABETES MELLITUS 10/01/2010 401.1 ESSENTIAL HYPERTENSION BENIGN 10/01/2010 493.90 ASTHMA 10/01/2010 724.2 lower back pain 10/01/2010 780.52 insomnia 10/01/2010 JACKELYN GUTIÉRREZ MD 250.00 DIABETES MELLITUS 10/01/2010 JACKELYN GUTIÉRREZ MD 401.1 ESSENTIAL HYPERTENSION BENIGN 10/01/2010 JACKELYN GUTIÉRREZ MD 493.90 ASTHMA 10/01/2010 JACKELYN GUTIÉRREZ MD 724.2 lower back pain 10/01/2010 JACKELYN GUTIÉRREZ MD 780.52 insomnia 10/01/2010 GALE SOLIZ APRN T 250.00 DIABETES MELLITUS 10/01/2010 GALE SOLIZ APRN T 401.1 ESSENTIAL HYPERTENSION BENIGN 10/01/2010 GALE SOLIZ APRN T 493.90 ASTHMA 10/01/2010 GALE SOLIZ APRN T 724.2 lower back pain 10/01/2010 GALE SOLIZ APRN T 780.52 insomnia 10/01/2010 HEYDI WALKER GALE T 250.00 DIABETES MELLITUS 10/01/2010 HEYDI WALKER GALE T 401.1 ESSENTIAL HYPERTENSION BENIGN 10/01/2010 GALE SOLIZ APRN T 493.90 ASTHMA 10/01/2010 GALE SOLIZ APRN T 724.2 lower back pain 10/01/2010 GALE SOLIZ APRN T 780.52 insomnia 10/01/2010 HEYDI WALKER GALE T 250.00 DIABETES MELLITUS 10/01/2010 GALE SOLIZ APRN T 401.1 ESSENTIAL HYPERTENSION BENIGN 10/01/2010 HEYDI WALKER GALE T 493.90 ASTHMA 10/01/2010 HEYDI WALKER GALE T 724.2 lower back pain 10/01/2010 HEYDI WALKER GALE T 780.52 insomnia 10/01/2010 HEYDI WALKER GALE T 250.00 DIABETES MELLITUS 10/01/2010 GALE SOLIZ APRN T 401.1 ESSENTIAL HYPERTENSION BENIGN 10/01/2010 HEYDI WALKER GALE T 493.90 ASTHMA 10/01/2010 HEYDI WALKER GALE T 724.2 lower back pain 10/01/2010 GALE SOLIZ APRN T 780.52 insomnia 10/01/2010 GALE SOLIZ APRN T 250.00 DIABETES MELLITUS 10/01/2010 GALE SOLIZ APRN T 401.1 ESSENTIAL HYPERTENSION BENIGN 10/01/2010 GALE SOLIZ APRN T 493.90 ASTHMA 10/01/2010 GALE SOLIZ APRN 724.2 lower back pain 10/01/2010 GALE SOLIZ APRN T 780.52 insomnia 10/01/2010 GALE SOLIZ APRN T 250.00 DIABETES MELLITUS 10/01/2010 GALE SOLIZ APRN T 401.1 ESSENTIAL HYPERTENSION BENIGN 10/01/2010 GALE SOLIZ APRN T 493.90 ASTHMA 10/01/2010 GALE SOLIZ APRN 724.2 lower back pain 10/01/2010 GALE SOLIZ APRN T 780.52 insomnia 10/01/2010 GALE SOLIZ APRN 250.00 DIABETES MELLITUS 10/01/2010 GALE SOLIZ APRN 401.1 ESSENTIAL HYPERTENSION BENIGN 10/01/2010 GALE SOLIZ APRN T 493.90 ASTHMA 10/01/2010 GALE SOLIZ APRN 724.2 lower back pain 10/01/2010 GALE SOLIZ APRN 780.52 insomnia 10/01/2010 LI DO, IRIS K 250.00 DIABETES MELLITUS 10/01/2010 LI DO, IRIS K 401.1 ESSENTIAL HYPERTENSION BENIGN 10/01/2010 LI DO, IRIS K 493.90 ASTHMA 10/01/2010 LI DO, IRIS K 724.2 lower back pain 10/01/2010 LI DO, IRIS K 780.52 insomnia 10/01/2010 GALE SOLIZ APRN 250.00 DIABETES MELLITUS 10/01/2010 GALE SOLIZ APRN 401.1 ESSENTIAL HYPERTENSION BENIGN 10/01/2010 GALE SOLIZ APRN T 493.90 ASTHMA 10/01/2010 GALE SOLIZ APRN T 724.2 lower back pain 10/01/2010 GALE SOLIZ APRN T 780.52 insomnia 10/01/2010 WHITE DDS, MARIANELA J 250.00 DIABETES MELLITUS 10/01/2010 WHITE DDS, MARIANELA J 401.1 ESSENTIAL HYPERTENSION BENIGN 10/01/2010 WHITE DDS, MARIANELA J 493.90 ASTHMA 10/01/2010 WHITE DDS, MARIANELA J 724.2 lower back pain 10/01/2010 WHITE DDS, MARIANELA J 780.52 insomnia 10/01/2010 GALE SOLIZ APRN 250.00 DIABETES MELLITUS 10/01/2010 GALE SOLIZ APRN 401.1 ESSENTIAL HYPERTENSION BENIGN 10/01/2010 GALE SOLIZ APRN 493.90 ASTHMA 10/01/2010 GALE SOLIZ APRN 724.2 lower back pain 10/01/2010 GALE SOLIZ APRN 780.52 insomnia 02/02/2011 GALE SOLIZ APRN 278.00 OBESITY 02/02/2011 GALE SOLIZ APRN 682.9 CELLULITIS AND ABSCESS OF UNSPECIFIED SITES 02/02/2011 278.00 OBESITY 02/02/2011 682.9 CELLULITIS AND ABSCESS OF UNSPECIFIED SITES 02/02/2011 278.00 OBESITY 02/02/2011 682.9 CELLULITIS AND ABSCESS OF UNSPECIFIED SITES 02/02/2011 278.00 OBESITY 02/02/2011 682.9 CELLULITIS AND ABSCESS OF UNSPECIFIED SITES 02/02/2011 GALE SOLIZ APRN 278.00 OBESITY 02/02/2011 GALE SOLIZ APRN 682.9 CELLULITIS AND ABSCESS OF UNSPECIFIED SITES 02/02/2011 GALE SOLIZ APRN 278.00 OBESITY 02/02/2011 GALE SOLIZ APRN 682.9 CELLULITIS AND ABSCESS OF UNSPECIFIED SITES 02/02/2011 278.00 OBESITY 02/02/2011 682.9 CELLULITIS AND ABSCESS OF UNSPECIFIED SITES 02/02/2011 278.00 OBESITY 02/02/2011 682.9 CELLULITIS AND ABSCESS OF UNSPECIFIED SITES 02/02/2011 JACKELYN GUTIÉRREZ MD 278.00 OBESITY 02/02/2011 JACKELYN GUTIÉRREZ MD 682.9 CELLULITIS AND ABSCESS OF UNSPECIFIED SITES 02/02/2011 GALE SOLIZ APRN 278.00 OBESITY 02/02/2011 GALE SOLIZ APRN 682.9 CELLULITIS AND ABSCESS OF UNSPECIFIED SITES 02/02/2011 GALE SOLIZ APRN 278.00 OBESITY 02/02/2011 GALE SOLIZ APRN 682.9 CELLULITIS AND ABSCESS OF UNSPECIFIED SITES 02/02/2011 GALE SOLIZ APRN 278.00 OBESITY 02/02/2011 GALE SOLIZ APRN 682.9 CELLULITIS AND ABSCESS OF UNSPECIFIED SITES 02/02/2011 GALE SOLIZ APRN 278.00 OBESITY 02/02/2011 GALE SOLIZ APRN 682.9 CELLULITIS AND ABSCESS OF UNSPECIFIED SITES 02/02/2011 GALE SOLIZ APRN 278.00 OBESITY 02/02/2011 GALE SOLIZ APRN 682.9 CELLULITIS AND ABSCESS OF UNSPECIFIED SITES 02/02/2011 GALE SOLIZ APRN T 278.00 OBESITY 02/02/2011 GALE SOLIZ APRN T 682.9 CELLULITIS AND ABSCESS OF UNSPECIFIED SITES 02/02/2011 GALE SOLIZ APRN T 278.00 OBESITY 02/02/2011 GALE SOLIZ APRN 682.9 CELLULITIS AND ABSCESS OF UNSPECIFIED SITES 02/02/2011 LI DO, IRIS K 278.00 OBESITY 02/02/2011 LI DO, IRIS K 682.9 CELLULITIS AND ABSCESS OF UNSPECIFIED SITES 02/02/2011 GALE SOLIZ APRN 278.00 OBESITY 02/02/2011 GALE SOLIZ APRN 682.9 CELLULITIS AND ABSCESS OF UNSPECIFIED SITES 02/02/2011 WHITE DDS, MARIANELA J 278.00 OBESITY 02/02/2011 WHITE DDS, MARIANELA J 682.9 CELLULITIS AND ABSCESS OF UNSPECIFIED SITES 02/02/2011 GALE SOLIZ APRN T 278.00 OBESITY 02/02/2011 GALE SOLIZ APRN 682.9 CELLULITIS AND ABSCESS OF UNSPECIFIED SITES 02/15/2011 GALE SOLIZ APRN 257.2 HYPOGONADISM 02/15/2011 257.2 HYPOGONADISM 02/15/2011 257.2 HYPOGONADISM 02/15/2011 257.2 HYPOGONADISM 02/15/2011 GALE SOLIZ APRN 257.2 HYPOGONADISM 02/15/2011 GALE SOLIZ APRN 257.2 HYPOGONADISM 02/15/2011 257.2 HYPOGONADISM 02/15/2011 257.2 HYPOGONADISM 02/15/2011 JACKELYN GUTIÉRREZ MD 257.2 HYPOGONADISM 02/15/2011 GALE SOLIZ APRN 257.2 HYPOGONADISM 02/15/2011 GALE SOLIZ APRN 257.2 HYPOGONADISM 02/15/2011 GALE SOLIZ APRN 257.2 HYPOGONADISM 02/15/2011 GALE SOLIZ APRN 257.2 HYPOGONADISM 02/15/2011 GALE SOLIZ APRN 257.2 HYPOGONADISM 02/15/2011 GALE SOLIZ APRN 257.2 HYPOGONADISM 02/15/2011 GALE SOLIZ APRN 257.2 HYPOGONADISM 02/15/2011 LI DO, IRIS K 257.2 HYPOGONADISM 02/15/2011 GALE SOLIZ APRN T 257.2 HYPOGONADISM 02/15/2011 WHITE DDS, MARIANELA J 257.2 HYPOGONADISM 02/15/2011 GALE SOLIZ APRN T 257.2 HYPOGONADISM 04/18/2012 HEYDI WALKER, GALE T 078.19 WARTS, COMMON 04/18/2012 HEYDI WALKER, GALE T 078.19 WARTS, COMMON 04/18/2012 078.19 WARTS, COMMON 04/18/2012 078.19 WARTS, COMMON 04/18/2012 JACKELYN GUTIÉRREZ MD 078.19 WARTS, COMMON 04/18/2012 HEYDI WALKER, GALE T 078.19 WARTS, COMMON 04/18/2012 HEYDI WALKER, GALE T 078.19 WARTS, COMMON 04/18/2012 HEYDI WALKER, GALE T 078.19 WARTS, COMMON 04/18/2012 HEYDI WALKER, GALE T 078.19 WARTS, COMMON 04/18/2012 HEYDI WALKER, GALE T 078.19 WARTS, COMMON 04/18/2012 HEYDI WALKER, GALE T 078.19 WARTS, COMMON 04/18/2012 HEYDI WALKER, GALE T 078.19 WARTS, COMMON 04/18/2012 LI DO, IRIS K 078.19 WARTS, COMMON 04/18/2012 HEYDI WALKER, GALE T 078.19 WARTS, COMMON 04/18/2012 WHITE DDS, MARIANELA Garcia 078.19 WARTS, COMMON 04/18/2012 GALE SOLIZ APRN T 078.19 WARTS, COMMON 05/31/2012 462 PHARYNGITIS 05/31/2012 462 PHARYNGITIS 05/31/2012 JACKELYN GUTIÉRREZ MD 462 PHARYNGITIS 05/31/2012 GALE SOLIZ APRN T 462 PHARYNGITIS 05/31/2012 GALE SOLIZ APRN T 462 PHARYNGITIS 05/31/2012 GALE SOLIZ APRN T 462 PHARYNGITIS 05/31/2012 GALE SOLIZ APRN T 462 PHARYNGITIS 05/31/2012 GALE SOLIZ APRN T 462 PHARYNGITIS 05/31/2012 GALE SOLIZ APRN T 462 PHARYNGITIS 05/31/2012 GALE SOLIZ APRN T 462 PHARYNGITIS 05/31/2012 ALVARO LI DOA K 462 PHARYNGITIS 05/31/2012 GALE SOLIZ APRN 462 PHARYNGITIS 05/31/2012 MAURA MUNOZ, MARIANELA Garcia 462 PHARYNGITIS 05/31/2012 GALE SOLIZ APRN 462 PHARYNGITIS 02/08/2013 TATE BANERJEE, LEEANNA Avila Ot 493.92 ASTHMA, UNSPECIFIED, W (ACUTE) EXACERBAT 02/08/2013 LEEANNA YBARRA MD Ot 786.05 SHORTNESS OF BREATH 02/14/2013 CHRIS CANDELARIO Ot 719.06 JOINT EFFUSION-L/LEG 02/14/2013 CHRIS CANDELARIO Ot 844.9 SPRAIN OF KNEE LEG NOS 02/14/2013 CHRIS CANDELARIO Ot 959.7 LOWER LEG INJURY NOS 02/14/2013 CHRIS CANDELARIO Ot E000.8 OTHER EXTERNAL CAUSE STATUS 02/14/2013 CHRIS CANDELARIO Ot E849.0 ACCIDENT IN HOME 02/14/2013 CHRIS CANDELARIO Ot E927.0 OVEREXERTION FROM SUDDEN STRENUOUS MOVEM 02/20/2013 GALE SOLIZ APRN 719.46 PAIN- KNEE 02/20/2013 GALE SOLIZ APRN 719.46 PAIN- KNEE 02/20/2013 GALE SOLIZ APRN 719.46 PAIN- KNEE 02/20/2013 GALE SOLIZ APRN 719.46 PAIN- KNEE 02/20/2013 GALE SOLIZ APRN 719.46 PAIN- KNEE 02/20/2013 IRIS LI DO K 719.46 PAIN- KNEE 02/20/2013 GALE SOLIZ APRN 719.46 PAIN- KNEE 02/20/2013 MARIANELA LORENZO DDS 719.46 PAIN- KNEE 02/20/2013 GALE SOLIZ APRN 719.46 PAIN- KNEE 03/18/2013 JENNY HENDRIX MD Ot 250.00 DIAB EDDIE WO COMPL, TYPE II OR UNSPEC TY 03/18/2013 JENNY HENDRIX MD Ot 493.90 ASTHMA, UNSPECIFIED 03/18/2013 JENNY HENDRIX MD Ot 836.1 TEAR LAT MENISC KNEE-CUR 03/18/2013 JENNY HENDRIX MD Ot E000.8 OTHER EXTERNAL CAUSE STATUS 03/18/2013 RUMA BANERJEE, JENNY Carvajal Ot E888.9 FALL NOS 03/18/2013 RUMA BANERJEE, JENNY Carvajal Ot V58.69 [facility],LT,CURRENT USE 03/18/2013 JENNY HENDRIX MD Ot V74.8 SCREEN-BACTERIAL DIS NEC 12/30/2013 GALE SOLIZ APRN 686.9 UNSPECIFIED LOCAL INFECTION OF SKIN AND SUBCUTANEOUS TISSUE 12/30/2013 ALVARO LI DOA K 686.9 UNSPECIFIED LOCAL INFECTION OF SKIN AND SUBCUTANEOUS TISSUE 12/30/2013 GALE SOLIZ APRN 686.9 UNSPECIFIED LOCAL INFECTION OF SKIN AND SUBCUTANEOUS TISSUE 12/30/2013 MAURA GARCIAS, MARIANELA J 686.9 UNSPECIFIED LOCAL INFECTION OF SKIN AND SUBCUTANEOUS TISSUE 12/30/2013 GALE SOLIZ APRN 686.9 UNSPECIFIED LOCAL INFECTION OF SKIN AND SUBCUTANEOUS TISSUE 01/06/2014 GALE SOLIZ APRN 706.2 SEBACEOUS CYST 01/06/2014 ALVARO LI DOA K 706.2 SEBACEOUS CYST 01/06/2014 GALE SOLIZ APRN 706.2 SEBACEOUS CYST 01/06/2014 MAURA MUNOZ, MARIANELA J 706.2 SEBACEOUS CYST 01/06/2014 GALE SOLIZ APRN 706.2 SEBACEOUS CYST 03/12/2014 MARLA BANERJEE, JACKELYN Izaguirre Ot 250.00 03/12/2014 MARLA BANERJEE, JACKELYN Izaguirre Ot 401.9 03/12/2014 MARLA BANERJEE, JACKELYN Izaguirre Ot 486 03/12/2014 MARLA BANERJEE, JACKELYN Izaguirre Ot 493.90 03/12/2014 MARLA BANERJEE, JACKELYN Izaguirre Ot 793.19 03/13/2014 MARLA BANERJEE, JACKELYN Izaguirre Ot 189.0 03/13/2014 MARLA BANERJEE, JACKELYN Izaguirre Ot 250.00 03/13/2014 MARLA BANERJEE, JACKELYN Izaguirre Ot 257.2 03/13/2014 MARLA BANERJEE, JACKELYN Izaguirre Ot 278.00 03/13/2014 MARLA BANERJEE, JACKELYN Izaguirre Ot 285.9 03/13/2014 MARLA BANERJEE, JACKELYN Izaguirre Ot 401.9 03/13/2014 MARLA BANERJEE, JACKELYN Izaguirre Ot 403.90 03/13/2014 MARLA BANERJEE, JACKELYN Izaguirre Ot 486 03/13/2014 MARLA BANERJEE, JACKELYN Izaguirre Ot 493.90 03/13/2014 MARLA BANERJEE, JACKELYN Izaguirre Ot 585.9 03/13/2014 MARLA BANERJEE, JACKELYN Izaguirre Ot 793.19 03/13/2014 MARLA BANERJEE, JACKELYN Izaguirre Ot V03.82 03/13/2014 MARLA BANERJEE, JACKELYN Izaguirre Ot V04.81 03/13/2014 MARLA BANERJEE, JACKELYN Izaguirre Ot V85.41 03/28/2014 GALE SOLIZ APRN 276.7 HYPERKALEMIA 03/28/2014 MARIANELA LORENZO DDS J 276.7 HYPERKALEMIA 03/28/2014 GALE SOLIZ APRN 276.7 HYPERKALEMIA 03/31/2014 GALE SOLIZ APRN 593.9 RENAL INSUFFICIENCY 03/31/2014 MARIANELA LORENZO DDS J 593.9 RENAL INSUFFICIENCY 03/31/2014 GALE SOLIZ APRN 593.9 RENAL INSUFFICIENCY 04/01/2014 Ot 721.3 04/01/2014 KYLER CANDELARIOEN L Ot 719.06 04/01/2014 KYLER CANDELARIOEN L Ot 719.46 04/01/2014 KYLER CANDELARIOEN Wei Ot 836.1 04/01/2014 KYLER CANDELARIOEN Wei Ot E000.8 04/01/2014 KYLER CANDELARIOEN Wei Ot E849.0 04/01/2014 KYLER CANDELARIOEN L Ot E928.9 04/01/2014 JENNY HENDRIX MD Ot 727.61 04/01/2014 JENNY HENDRIX MD Ot V72.84 04/01/2014 JENNY HENDRIX MD Ot 453.40 04/01/2014 Ot 786.6 CHEST SWELLING/MASS/LUMP 04/09/2014 GALE SOLIZ APRN 782.3 EDEMA 04/09/2014 MAURA MUNOZ, MARIANELA J 782.3 EDEMA 04/09/2014 GALE SOLIZ APRN 782.3 EDEMA 04/16/2014 Ot 038.9 SEPTICEMIA NOS 04/16/2014 Ot 189.0 MALIG NEOPL KIDNEY 04/16/2014 Ot 250.00 DIAB EDDIE WO COMPL, TYPE II OR UNSPEC TY 04/16/2014 Ot 278.00 OBESITY, NOS 04/16/2014 Ot 403.90 HYPTNSV CHR KID DIS, UNSPEC, W CHR KD ST 04/16/2014 Ot 486 PNEUMONIA, ORGANISM NOS 04/16/2014 Ot 493.92 ASTHMA, UNSPECIFIED, W (ACUTE) EXACERBAT 04/16/2014 Ot 584.9 ACUTE RENAL FAILURE, UNSPECIFIED 04/16/2014 Ot 585.9 CHRONIC KIDNEY DISEASE, UNSPECIFIED 04/16/2014 Ot 995.91 SEPSIS 04/16/2014 Ot V85.41 BODY MASS INDEX 40.0-44.9, ADULT 05/01/2014 GALE SOLIZ APRN T 786.09 RESPIRATORY ABNORMALITY OTHER 05/01/2014 WHITE DDS, MARIANELA J 786.09 RESPIRATORY ABNORMALITY OTHER 05/01/2014 GALE SOLIZ APRN 786.09 RESPIRATORY ABNORMALITY OTHER 05/01/2014 Ot 278.01 05/01/2014 Ot 486 05/01/2014 Ot 493.00 05/07/2014 MARLA BANERJEE, JACKELYN Izaguirre Ot 250.00 05/07/2014 MARLA BANERJEE, JACKELYN Izaguirre Ot 285.29 05/07/2014 MARLA BANERJEE, JACKELYN Izaguirre Ot 403.90 05/07/2014 MALRA BANERJEE, JACKELYN Izaguirre Ot 493.90 05/07/2014 MARLA BANERJEE, JACKELYN Izaguirre Ot 585.9 05/07/2014 MARLA BANERJEE, JACKELYN Izaguirre Ot 593.9 05/07/2014 MARLA BANERJEE, JACKELYN Izaguirre Ot 782.3 05/07/2014 MARLA BANERJEE, JACKELYN Izaguirre Ot 250.00 05/07/2014 MARLA BANERJEE, JACKELYN Izaguirre Ot 285.29 05/07/2014 MARLA BANERJEE, JACKELYN F Ot 403.90 05/07/2014 MARLA BANERJEE, JACKELYN F Ot 493.90 05/07/2014 MARLA BANERJEE, JACKELYN F Ot 585.9 05/07/2014 MARLA BANERJEE, JACKELYN F Ot 593.9 05/07/2014 MARLA BANERJEE, JACKELYN F Ot 782.3 05/07/2014 MARLA BANERJEE, JACKELYN F Ot 250.00 05/07/2014 MARLA BANERJEE, JACKELYN Izaguirre Ot 285.29 05/07/2014 MARLA BANERJEE, JACKELYN F Ot 403.90 05/07/2014 MARLA BANERJEE, JACKELYN F Ot 493.90 05/07/2014 MARLA BANERJEE, JACKELYN Izaguirre Ot 585.9 05/07/2014 MARLA BANERJEE, JACKELYN Izaguirre Ot 593.9 05/07/2014 MARLA BANERJEE, JACKELYN Izaguirre Ot 782.3 05/08/2014 MARLA BANERJEE, JACKELYN Izaguirre Ot 250.00 05/08/2014 MARLA BANERJEE, JACKELYN Izaguirre Ot 285.29 05/08/2014 MARLA BANERJEE, JACKELYN Izaguirre Ot 403.90 05/08/2014 MARLA BANERJEE, JACKELYN Izaguirre Ot 493.90 05/08/2014 MARLA BANERJEE, JACKELYN Izaguirre Ot 585.9 05/08/2014 MARLA BANERJEE, JACKELYN Izaguirre Ot 593.9 05/08/2014 MARLA BANERJEE, JACKELYN Izaguirre Ot 782.3 05/08/2014 MARLA BANERJEE, JACKELYN Izaguirre Ot 250.00 05/08/2014 MARLA BANERJEE, JACKELYN Izaguirre Ot 285.29 05/08/2014 MARLA BANERJEE, JACKELYN Izaguirre Ot 403.90 05/08/2014 MARLA BANERJEE, JACKELYN Izaguirre Ot 493.90 05/08/2014 MARLA BANERJEE, JACKELYN Izaguirre Ot 585.9 05/08/2014 MARLA BANERJEE, JACKELYN Izaguirre Ot 593.9 05/08/2014 MARLA BANERJEE, JACKELYN Izaguirre Ot 782.3 05/09/2014 MARLA BANERJEE, JACKELYN Izaguirre Ot 250.00 05/09/2014 MARLA BANERJEE, JACKELYN Izaguirre Ot 285.29 05/09/2014 MARLA BANERJEE, JACKELYN Izaguirre Ot 403.90 05/09/2014 MARLA BANERJEE, JACKELYN Izaguirre Ot 493.90 05/09/2014 MARLA BANERJEE, JACKELYN Izaguirre Ot 585.9 05/09/2014 MARLA BANERJEE, JACKELYN Izaguirre Ot 593.9 05/09/2014 MARLA BANERJEE, JACKELYN Izaguirre Ot 782.3 05/09/2014 MARLA BANERJEE, JACKELYN Izaguirre Ot 250.00 05/09/2014 MARLA BANERJEE, JACKELYN Izaguirre Ot 250.40 DIAB W RENAL MANIFEST, TYPE II OR UNSPEC 05/09/2014 MARLA BANERJEE, JACKELYN Izaguirre Ot 278.01 MORBID OBESITY 05/09/2014 MARLA BANERJEE, JACKELYN Izaguirre Ot 285.29 ANEMIA OF OTHER CHRONIC DISEASE 05/09/2014 MARLA BANERJEE, JACKELYN Izaguirre Ot 397.0 TRICUSPID VALVE DISEASE 05/09/2014 MARLA BANERJEE, JACKELYN Izaguirre Ot 403.90 HYPTNSV CHR KID DIS, UNSPEC, W CHR KD ST 05/09/2014 MARLA BANERJEE, JACKELYN Izaguirre Ot 424.0 MITRAL VALVE DISORDER 05/09/2014 MARLA BANERJEE, JACKELYN Izaguirre Ot 429.9 HEART DISEASE NOS 05/09/2014 MARLA BANERJEE, JACKELYN Izaguirre Ot 493.90 05/09/2014 MARLA BANERJEE, JACKELYN Izaguirre Ot 493.92 ASTHMA, UNSPECIFIED, W (ACUTE) EXACERBAT 05/09/2014 MARLA BANERJEE, JACKELYN Izaguirre Ot 585.3 CHRONIC KIDNEY DISEASE, STAGE III (MODER 05/09/2014 MARLA BANERJEE, JACKELYN Izaguirre Ot 585.9 05/09/2014 MARLA BANERJEE, JACKELYN Izaguirre Ot 593.9 RENAL URETERAL DIS NOS 05/09/2014 MARLA BANERJEE, JACKELYN Izaguirre Ot 599.70 HEMATURIA, UNSPECIFIED 05/09/2014 MARLA BANERJEE, JACKELYN Izaguirre Ot 715.90 OSTEOARTHROS NOS-UNSPEC 05/09/2014 MARLA BANERJEE, JACKELYN Izaguirre Ot 782.3 EDEMA 05/09/2014 MARLA BANERJEE, JACKELYN Izaguirre Ot 786.6 CHEST SWELLING/MASS/LUMP 05/09/2014 MARLA BANERJEE, JACKELYN Izaguirre Ot V85.43 BODY MASS INDEX 50.0-59.9, ADULT 05/15/2014 GALE SOLIZ Ot 719.46 07/21/2014 NIYAH BANERJEE, GEORGINA Wetzel Ot 250.00 07/21/2014 NIYAH BANERJEE, GEORGINA Wetzel Ot 278.01 07/21/2014 NIYAH BANERJEE, GEORGINA Wetzel Ot 280.9 07/21/2014 NIAYH BANERJEE, GEORGINA Wetzel Ot 403.90 07/21/2014 NIYAH BANERJEE, GEORGINA Wetzel Ot 493.90 07/21/2014 NIYAH BANERJEE, GEORGINA Wetzel Ot 585.9 07/21/2014 NIYAH BANERJEE, GEORGINA Wetzel Ot 593.9 07/21/2014 NIYAH BANERJEE, GEORGINA Wetzel Ot V58.67 07/21/2014 NIYAH BANERJEE, GEORGINA Wetzel Ot V58.69 07/21/2014 NIYAH BANERJEE, GEORGINA Wetzel Ot V85.41 08/21/2014 NIYAH BANERJEE, GEORGINA Wetzel Ot 250.00 DIAB EDDIE WO COMPL, TYPE II OR UNSPEC TY 08/21/2014 NIYAH BANERJEE, GEORGINA Wetzel Ot 278.01 MORBID OBESITY 08/21/2014 NIYAH BANERJEE, GEORGINA Wetzel Ot 280.9 IRON DEFIC ANEMIA NOS 08/21/2014 NIYAH BANERJEE, GEORGINA Wetzel Ot 403.90 HYPTNSV CHR KID DIS, UNSPEC, W CHR KD ST 08/21/2014 NIYAH BANERJEE, GEORGINA Wetzel Ot 493.90 ASTHMA, UNSPECIFIED 08/21/2014 NIYAH BANERJEE, GEORGINA Wetzel Ot 585.9 CHRONIC KIDNEY DISEASE, UNSPECIFIED 08/21/2014 NIYAH BANERJEE, GEORGINA Wetzel Ot 593.9 RENAL URETERAL DIS NOS 08/21/2014 NIYAH BANERJEE, GEORGINA Wetzel Ot V58.67 LONG-TERM (CURRENT) USE OF INSULIN 08/21/2014 NIYAH BANERJEE, GEORGINA Wetzel Ot V58.69 OTH MED,LT,CURRENT USE 08/21/2014 NIYAH BANERJEE, GEORGINA Wetzel Ot V85.41 BODY MASS INDEX 40.0-44.9, ADULT 10/30/2014 NIYAH BANERJEE, GEORGINA Wetzel Ot 250.00 10/30/2014 NIYAH BANERJEE, GEORGINA Wetzel Ot 278.01 10/30/2014 NIYAH BANERJEE, GEORGINA Wetzel Ot 280.9 10/30/2014 NIYAH BANERJEE, GEORGINA Wetzel Ot 403.90 10/30/2014 NIYAH BANERJEE, GEORGINA Wetzel Ot 493.90 10/30/2014 NIYAH BANERJEE, GEORGINA Wetzel Ot 585.9 10/30/2014 NIYAH BANERJEE, GEORGINA Wetzel Ot 593.9 10/30/2014 NIYAH BANERJEE, GEORGINA Wetzel Ot V58.67 10/30/2014 NIYAH BANERJEE, GEORGINA Wetzel Ot V58.69 10/30/2014 NIYAH BANERJEE, GEORGINA Wetzel Ot V85.41 11/11/2014 NIYAH BANERJEE, GEORGINA Wetzel Ot 250.00 11/11/2014 NIYAH BANERJEE, GEORGINA Wetzel Ot 278.01 11/11/2014 NIYAH BANERJEE, GEORGINA Wetzel Ot 280.9 11/11/2014 NIYAH BANERJEE, GEORGINA Wetzel Ot 403.90 11/11/2014 NIYAH BANERJEE, GEORGINA Wetzel Ot 493.90 11/11/2014 NIYAH BANERJEE, GEORGINA Wetzel Ot 585.9 11/11/2014 NIYAH BANERJEE, GEORGINA Wetzel Ot 593.9 11/11/2014 NIYAH BANERJEE, GEORGINA Wetzel Ot V58.67 11/11/2014 NIYAH BANERJEE, GEORGINA Wetzel Ot V58.69 11/11/2014 NIYAH BANERJEE, GEORGINA Wetzel Ot V85.41 12/30/2014 NIYAH BANERJEE, GEORGINA Wetzel Ot D50.9 12/30/2014 NIYAH BANERJEE, GEORGINA Wetzel Ot E11.9 12/30/2014 NIYAH BANERJEE, GEORGINA Wetzel Ot E66.01 12/30/2014 NIYAH BANERJEE, GEORGINA Wetzel Ot I12.9 12/30/2014 NIYAH BANERJEE, GEORGINA Wetzel Ot J45.909 12/30/2014 GEORGINA LINDER MD, Ot N18.9 12/30/2014 GEORGINA LINDER MD, Ot N28.89 12/30/2014 GEORGINA LINDER MD, Ot Z68.41 12/30/2014 GEORGINA LINDER MD Ot Z79.4 12/30/2014 GEORGINA LINDER MD, Ot Z79.899 01/05/2015 LEEANNA YBARRA MD Ot E83.42 HYPOMAGNESEMIA 01/05/2015 LEEANNA YBARRA MD Ot I10 ESSENTIAL (PRIMARY) HYPERTENSION 01/05/2015 LEEANNA YBARRA MD Ot J45.901 UNSPECIFIED ASTHMA WITH (ACUTE) EXACERBA 01/05/2015 LEEANNA YBARRA MD, Ot Z79.899 OTHER FPC (CURRENT) DRUG THERAPY 01/06/2015 GEORGINA LINDER MD Ot 593.9 01/06/2015 GEORGINA LINDER MD Ot 786.6 02/04/2015 GEORGINA LINDER MD Ot 250.00 DIAB EDDIE WO COMPL, TYPE II OR UNSPEC TY 02/04/2015 GEORGINA LINDER MD Ot 278.01 MORBID OBESITY 02/04/2015 GEORGINA LINDER MD Ot 280.9 IRON DEFIC ANEMIA NOS 02/04/2015 GEORGINA LINDER MD Ot 493.90 ASTHMA, UNSPECIFIED 02/04/2015 GEORGINA LINDER MD Ot 585.9 CHRONIC KIDNEY DISEASE, UNSPECIFIED 02/04/2015 GEORGINA LINDER MD Ot D50.9 IRON DEFICIENCY ANEMIA, UNSPECIFIED 02/04/2015 GEORGINA LINDER MD Ot E11.9 TYPE 2 DIABETES MELLITUS WITHOUT COMPLIC 02/04/2015 GEORGINA LINDER MD Ot E66.01 MORBID (SEVERE) OBESITY DUE TO EXCESS CA 02/04/2015 GEORGINA LINDER MD, Ot I12.9 HYPERTENSIVE CHRONIC KIDNEY DISEASE W ST 02/04/2015 GEORGINA LINDER MD Ot J45.909 UNSPECIFIED ASTHMA, UNCOMPLICATED 02/04/2015 GEORGINA LINDER MD, Ot N18.9 CHRONIC KIDNEY DISEASE, UNSPECIFIED 02/04/2015 GEORGINA LINDER MD Ot N28.89 OTHER SPECIFIED DISORDERS OF KIDNEY AND 02/04/2015 GEORGINA LINDER MD Ot V58.67 LONG-TERM (CURRENT) USE OF INSULIN 02/04/2015 GEORGINA LINDER MD, Ot V58.69 OTH MED,LT,CURRENT USE 02/04/2015 NIYAH BANERJEE, GEORGINA Wetzel Ot V85.41 BODY MASS INDEX 40.0-44.9, ADULT 02/04/2015 NIYAH BANERJEE, GEORGINA Wetzel Ot Z68.41 BODY MASS INDEX (BMI) 40.0-44.9, ADULT 02/04/2015 NIYAH BANERJEE, GEORGINA Wetzel Ot Z79.4 FPC (CURRENT) USE OF INSULIN 02/04/2015 NIYAH BANERJEE, GEORGINA Wetzel Ot Z79.899 OTHER FPC (CURRENT) DRUG THERAPY 04/21/2015 Ot 278.01 04/21/2015 Ot 486 04/21/2015 Ot 493.00 04/21/2015 GALE SOLIZ Ot 719.46 04/21/2015 NIYAH BANERJEE, GEORGINA Wetzel Ot 593.9 04/21/2015 NIYAH BANERJEE, GEORGINA Wetzel Ot 786.6 04/21/2015 CAYDEN LUIS DO Ot K42.9 04/21/2015 CAYDEN LUIS DO Ot Z01.818 04/21/2015 NIYAH BANERJEE, GEORGINA Wetzel Ot D50.9 04/21/2015 NIYAH BANERJEE, GEORGINA Wetzel Ot E11.9 04/21/2015 NIYAH BANERJEE, GEORGINA Wetzel Ot E66.01 04/21/2015 NIYAH BANERJEE, GEORGINA Damari Ot I12.9 04/21/2015 NIYAH BANERJEE, GEORGINA Wetzel Ot J45.909 04/21/2015 NIYAH BANERJEE, GEORGINA Wetzel Ot N18.9 04/21/2015 NIYAH BANERJEE, GEORGINA Damari Ot N28.89 04/21/2015 NIYAH BANERJEE, GEORGINA Wetzel Ot Z68.41 04/21/2015 NIYAH BANERJEE, GEORGINA Wetzel Ot Z79.4 04/21/2015 NIYAH BANERJEE, GEORGINA Wetzel Ot Z79.899 04/21/2015 NIYAH BANERJEE, GEORGINA Wetzel Ot N28.89 04/22/2015 NIYAH BANERJEE, GEORGINA Wetzel Ot D50.9 04/22/2015 NIYAH BANERJEE, GEORGINA Wetzel Ot E11.9 04/22/2015 NIYAH BANERJEE, GEORGINA Wetzel Ot E66.01 04/22/2015 NIYAH BANERJEE, GEORGINA Wetzel Ot I12.9 04/22/2015 NIYAH BANERJEE, GEORGINA Wetzel Ot J45.909 04/22/2015 NIYAH BANERJEE, GEORGINA Wetzel Ot N18.9 04/22/2015 NIYAH BANERJEE, GEORGINA Wetzel Ot N28.89 04/22/2015 NIYAH BANERJEE, GEORGINA Wetzel Ot Z68.41 04/22/2015 GEORGINA LINDER MD Ot Z79.4 04/22/2015 GEORGINA LINDER MD, Ot Z79.899 05/22/2015 GEORGINA LINDER MD, Ot D50.9 IRON DEFICIENCY ANEMIA, UNSPECIFIED 05/22/2015 GEORGINA LINDER MD Ot E11.22 TYPE 2 DIABETES MELLITUS W DIABETIC SCOOP FILLER 05/22/2015 GEORGINA LINDER MD Ot E66.01 MORBID (SEVERE) OBESITY DUE TO EXCESS CA 05/22/2015 GEORGINA LINDER MD Ot I12.9 HYPERTENSIVE CHRONIC KIDNEY DISEASE W ST 05/22/2015 GEORGINA LINDER MD Ot J45.909 UNSPECIFIED ASTHMA, UNCOMPLICATED 05/22/2015 GEORGINA LINDER MD Ot N18.9 CHRONIC KIDNEY DISEASE, UNSPECIFIED 05/22/2015 GEORGINA LINDER MD Ot N28.89 OTHER SPECIFIED DISORDERS OF KIDNEY AND 05/22/2015 GEORGINA LINDER MD Ot Z68.41 BODY MASS INDEX (BMI) 40.0-44.9, ADULT 05/22/2015 GEORGINA LINDER MD Ot Z79.4 FPC (CURRENT) USE OF INSULIN 05/22/2015 GEORGINA LINDER MD, Ot Z79.899 OTHER FPC (CURRENT) DRUG THERAPY 07/20/2015 GEORGINA LINDER MD Ot D50.9 IRON DEFICIENCY ANEMIA, UNSPECIFIED 07/20/2015 GEORGINA LINDER MD Ot E11.22 TYPE 2 DIABETES MELLITUS W DIABETIC SCOOP FILLER 07/20/2015 GEORGINA LINDER MD Ot E66.01 MORBID (SEVERE) OBESITY DUE TO EXCESS CA 07/20/2015 GEORGINA LINDER MD Ot I12.9 HYPERTENSIVE CHRONIC KIDNEY DISEASE W ST 07/20/2015 GEORGINA LINDER MD, Ot J45.909 UNSPECIFIED ASTHMA, UNCOMPLICATED 07/20/2015 GEORGINA LINDER MD, Ot N18.9 CHRONIC KIDNEY DISEASE, UNSPECIFIED 07/20/2015 GEORGINA LINDER MD Ot N28.89 OTHER SPECIFIED DISORDERS OF KIDNEY AND 07/20/2015 GEORGINA LINDER MD Ot Z68.41 BODY MASS INDEX (BMI) 40.0-44.9, ADULT 07/20/2015 GEORGINA LINDER MD Ot Z79.4 FPC (CURRENT) USE OF INSULIN 07/20/2015 GEORGINA LINDER MD Ot Z79.899 OTHER HOSE SPRAYER (CURRENT) DRUG THERAPY 08/05/2015 Ot 721.3 LUMBOSACRAL SPONDYLOSIS 08/05/2015 CHRIS CANDELARIO Ot 719.06 JOINT EFFUSION-L/LEG 08/05/2015 CHRIS CANDELARIO Ot 719.46 JOINT PAIN-L/LEG 08/05/2015 CHRIS CANDELARIO Ot 836.1 TEAR LAT MENISC KNEE-CUR 08/05/2015 CHRIS CANDELARIO Ot E000.8 OTHER EXTERNAL CAUSE STATUS 08/05/2015 CHRIS CANDELARIO Ot E849.0 ACCIDENT IN HOME 08/05/2015 CHRIS CANDELARIO Ot E928.9 ACCIDENT NOS 08/05/2015 JENNY HENDRIX MD Ot 727.61 ROTATOR CUFF RUPTURE 08/05/2015 JENNY HENDRIX MD, Ot V72.84 EXAM PRE-OPERATIVE NOS 08/05/2015 JENNY HENDRIX MD Ot 453.40 ACUTE VENOUS EMBOLISM THROMBOSIS UNSP 08/05/2015 GEORGINA LINDER MD, Ot D50.9 IRON DEFICIENCY ANEMIA, UNSPECIFIED 08/05/2015 GEORGINA LINDER MD Ot E11.22 TYPE 2 DIABETES MELLITUS W DIABETIC SCOOP FILLER 08/05/2015 GEORGINA LINDER MD, Ot E66.01 MORBID (SEVERE) OBESITY DUE TO EXCESS CA 08/05/2015 GEORGINA LINDER MD Ot I12.9 HYPERTENSIVE CHRONIC KIDNEY DISEASE W ST 08/05/2015 GEORGINA LINDER MD, Ot J45.909 UNSPECIFIED ASTHMA, UNCOMPLICATED 08/05/2015 GEORGINA LINDER MD, Ot N18.9 CHRONIC KIDNEY DISEASE, UNSPECIFIED 08/05/2015 GEORGINA LINDER MD, Ot N28.89 OTHER SPECIFIED DISORDERS OF KIDNEY AND 08/05/2015 GEORGINA LINDER MD Ot Z68.41 BODY MASS INDEX (BMI) 40.0-44.9, ADULT 08/05/2015 GEORGINA LINDER MD, Ot Z79.4 FPC (CURRENT) USE OF INSULIN 08/05/2015 GEORGINA LINDER MD, Ot Z79.899 OTHER HOSE SPRAYER (CURRENT) DRUG THERAPY 08/05/2015 YOHAN GRANGER MD, Ot K42.9 UMBILICAL HERNIA WITHOUT OBSTRUCTION OR 08/05/2015 YOHAN GRANGER MD, Ot Z01.812 ENCOUNTER FOR PREPROCEDURAL LABORATORY E 08/05/2015 YOHAN GRANGER MD, Ot Z11.2 ENCOUNTER FOR SCREENING FOR OTHER BACTER 08/06/2015 YOHAN GRANGER MD, Ot K42.9 UMBILICAL HERNIA WITHOUT OBSTRUCTION OR 08/06/2015 YOHAN GRANGER MD, Ot Z01.812 ENCOUNTER FOR PREPROCEDURAL LABORATORY E 08/06/2015 YOHAN GRANGER MD, Ot Z11.2 ENCOUNTER FOR SCREENING FOR OTHER BACTER 08/06/2015 Ot 278.01 MORBID OBESITY 08/06/2015 Ot 486 PNEUMONIA, ORGANISM NOS 08/06/2015 Ot 493.00 EXTRINSIC ASTHMA, NOS 08/06/2015 GALE SOLIZ Ot 719.46 JOINT PAIN-L/LEG 08/06/2015 GEORGINA LINDER MD Ot 593.9 RENAL URETERAL DIS NOS 08/06/2015 GEORGINA LINDER MD Ot 786.6 CHEST SWELLING/MASS/LUMP 08/06/2015 CAYDEN LUIS DO, Ot K42.9 UMBILICAL HERNIA WITHOUT OBSTRUCTION OR 08/06/2015 CAYDEN LUIS DO Ot Z01.818 ENCOUNTER FOR OTHER PREPROCEDURAL EXAMIN 08/06/2015 GEORGINA LINDER MD, Ot N28.89 OTHER SPECIFIED DISORDERS OF KIDNEY AND 08/06/2015 GEORGINA LINDER MD, Ot D50.9 IRON DEFICIENCY ANEMIA, UNSPECIFIED 08/06/2015 GEORGINA LINDER MD Ot E11.22 TYPE 2 DIABETES MELLITUS W DIABETIC SCOOP FILLER 08/06/2015 GEORGINA LINDER MD, Ot E66.01 MORBID (SEVERE) OBESITY DUE TO EXCESS CA 08/06/2015 GEORGINA LINDER MD, Ot I12.9 HYPERTENSIVE CHRONIC KIDNEY DISEASE W ST 08/06/2015 GEORGINA LINDER MD Ot J45.909 UNSPECIFIED ASTHMA, UNCOMPLICATED 08/06/2015 GEORGINA LINDER MD, Ot N18.9 CHRONIC KIDNEY DISEASE, UNSPECIFIED 08/06/2015 GEORGINA LINDER MD Ot N28.89 OTHER SPECIFIED DISORDERS OF KIDNEY AND 08/06/2015 GEORGINA LINDER MD Ot Z68.41 BODY MASS INDEX (BMI) 40.0-44.9, ADULT 08/06/2015 GEORGINA LINDER MD, Ot Z79.4 HOSE SPRAYER (CURRENT) USE OF INSULIN 08/06/2015 GEORGINA LINDRE MD, Ot Z79.899 OTHER FPC (CURRENT) DRUG THERAPY 08/06/2015 YOHAN GRANGER MD Ot E11.9 TYPE 2 DIABETES MELLITUS WITHOUT COMPLIC 08/06/2015 YOHAN GRANGER MD, Ot K43.2 INCISIONAL HERNIA WITHOUT OBSTRUCTION OR 08/06/2015 YOHAN GRANGER MD, Ot Z79.4 FPC (CURRENT) USE OF INSULIN 08/12/2015 YOHAN GRANGER MD, Ot E11.9 TYPE 2 DIABETES MELLITUS WITHOUT COMPLIC 08/12/2015 YOHAN GRANGER MD, Ot K43.2 INCISIONAL HERNIA WITHOUT OBSTRUCTION OR 08/12/2015 YOHAN GRANGER MD, Ot Z79.4 HOSE SPRAYER (CURRENT) USE OF INSULIN 08/21/2015 YOHAN GRANGER MD, Ot E11.9 TYPE 2 DIABETES MELLITUS WITHOUT COMPLIC 08/21/2015 YOHAN GRANGER MD, Ot K43.2 INCISIONAL HERNIA WITHOUT OBSTRUCTION OR 08/21/2015 YOHAN GRANGER MD, Ot Z79.4 FPC (CURRENT) USE OF INSULIN 10/19/2015 GEORGINA LINDER MD, Ot D50.9 IRON DEFICIENCY ANEMIA, UNSPECIFIED 10/19/2015 GEORGINA LINDER MD, Ot E11.22 TYPE 2 DIABETES MELLITUS W DIABETIC SCOOP FILLER 10/19/2015 GEORGINA LINDER MD, Ot E66.01 MORBID (SEVERE) OBESITY DUE TO EXCESS CA 10/19/2015 GEORGINA LINDER MD, Ot I12.9 HYPERTENSIVE CHRONIC KIDNEY DISEASE W ST 10/19/2015 GEORGINA LINDER MD, Ot J45.909 UNSPECIFIED ASTHMA, UNCOMPLICATED 10/19/2015 GEORGINA LINDER MD, Ot N18.9 CHRONIC KIDNEY DISEASE, UNSPECIFIED 10/19/2015 GEORGINA LINDER MD, Ot N28.89 OTHER SPECIFIED DISORDERS OF KIDNEY AND 10/19/2015 GEORGINA LINDER MD, Ot Z68.41 BODY MASS INDEX (BMI) 40.0-44.9, ADULT 10/19/2015 GEORGINA LINDER MD, Ot Z79.4 HOSE SPRAYER (CURRENT) USE OF INSULIN 10/19/2015 GEORGINA LINDER MD, Ot Z79.899 OTHER FPC (CURRENT) DRUG THERAPY 10/21/2015 Ot 278.01 MORBID OBESITY 10/21/2015 Ot 486 PNEUMONIA, ORGANISM NOS 10/21/2015 Ot 493.00 EXTRINSIC ASTHMA, NOS 10/21/2015 GALE SOLIZ Ot 719.46 JOINT PAIN-L/LEG 10/21/2015 GEORGINA LINDER MD Ot 593.9 RENAL URETERAL DIS NOS 10/21/2015 GEORGINA LINDER MD Ot 786.6 CHEST SWELLING/MASS/LUMP 10/21/2015 CAYDEN LUIS DO Ot K42.9 UMBILICAL HERNIA WITHOUT OBSTRUCTION OR 10/21/2015 CAYDEN LUIS DO Ot Z01.818 ENCOUNTER FOR OTHER PREPROCEDURAL EXAMIN 10/21/2015 GEORGINA LINDER MD, Ot N28.89 OTHER SPECIFIED DISORDERS OF KIDNEY AND 10/21/2015 GEORGINA LINDER MD, Ot D50.9 IRON DEFICIENCY ANEMIA, UNSPECIFIED 10/21/2015 GEORGINA LINDER MD, Ot E11.22 TYPE 2 DIABETES MELLITUS W DIABETIC SCOOP FILLER 10/21/2015 GEORGINA LINDER MD, Ot E66.01 MORBID (SEVERE) OBESITY DUE TO EXCESS CA 10/21/2015 GEORGINA LINDER MD, Ot I12.9 HYPERTENSIVE CHRONIC KIDNEY DISEASE W ST 10/21/2015 GEORGINA LINDER MD, Ot J45.909 UNSPECIFIED ASTHMA, UNCOMPLICATED 10/21/2015 GEORGINA LINDER MD, Ot N18.9 CHRONIC KIDNEY DISEASE, UNSPECIFIED 10/21/2015 GEORGINA LINDER MD, Ot N28.89 OTHER SPECIFIED DISORDERS OF KIDNEY AND 10/21/2015 GEORGINA LINDER MD, Ot Z68.41 BODY MASS INDEX (BMI) 40.0-44.9, ADULT 10/21/2015 GEORGINA LINDER MD, Ot Z79.4 HOSE SPRAYER (CURRENT) USE OF INSULIN 10/21/2015 GEORGINA LINDER MD, Ot Z79.899 OTHER HOSE SPRAYER (CURRENT) DRUG THERAPY 10/22/2015 GEORGINA LINDER MD, Ot D50.9 IRON DEFICIENCY ANEMIA, UNSPECIFIED 10/22/2015 GEORGINA LINDER MD, Ot E11.22 TYPE 2 DIABETES MELLITUS W DIABETIC SCOOP FILLER 10/22/2015 GEORGINA LINDER MD, Ot E66.01 MORBID (SEVERE) OBESITY DUE TO EXCESS CA 10/22/2015 GEORGINA LINDER MD, Ot I12.9 HYPERTENSIVE CHRONIC KIDNEY DISEASE W ST 10/22/2015 GEORGINA LINDER MD, Ot J45.909 UNSPECIFIED ASTHMA, UNCOMPLICATED 10/22/2015 GEORGINA LINDER MD, Ot N18.9 CHRONIC KIDNEY DISEASE, UNSPECIFIED 10/22/2015 GEORGINA LINDER MD, Ot N28.89 OTHER SPECIFIED DISORDERS OF KIDNEY AND 10/22/2015 GEORGINA LINDER MD, Ot Z68.41 BODY MASS INDEX (BMI) 40.0-44.9, ADULT 10/22/2015 GEOGRINA LINDER MD Ot Z79.4 FPC (CURRENT) USE OF INSULIN 10/22/2015 GEORGINA LINDER MD, Ot Z79.899 OTHER FPC (CURRENT) DRUG THERAPY 10/22/2015 GEORGINA LINDER MD, Ot N28.89 OTHER SPECIFIED DISORDERS OF KIDNEY AND 10/22/2015 GEORGINA LINDER MD Ot R91.8 OTHER NONSPECIFIC ABNORMAL FINDING OF LEYDI 10/22/2015 GEORGINA LINDER MD, Ot N28.89 OTHER SPECIFIED DISORDERS OF KIDNEY AND 10/22/2015 GEORGINA LINDER MD Ot R91.8 OTHER NONSPECIFIC ABNORMAL FINDING OF LEYDI 11/16/2015 GEORGINA LINDER MD, Ot D50.9 IRON DEFICIENCY ANEMIA, UNSPECIFIED 11/16/2015 GEORGINA LINDER MD, Ot E11.22 TYPE 2 DIABETES MELLITUS W DIABETIC SCOOP FILLER 11/16/2015 GEORGINA LINDER MD, Ot E66.01 MORBID (SEVERE) OBESITY DUE TO EXCESS CA 11/16/2015 GEORGINA LINDER MD, Ot I12.9 HYPERTENSIVE CHRONIC KIDNEY DISEASE W ST 11/16/2015 GEORGINA LINDER MD, Ot J45.909 UNSPECIFIED ASTHMA, UNCOMPLICATED 11/16/2015 GEORGINA LINDER MD, Ot N18.9 CHRONIC KIDNEY DISEASE, UNSPECIFIED 11/16/2015 GEORGINA LINDER MD, Ot N28.89 OTHER SPECIFIED DISORDERS OF KIDNEY AND 11/16/2015 GEORGINA LINDER MD Ot Z68.41 BODY MASS INDEX (BMI) 40.0-44.9, ADULT 11/16/2015 GEORGINA LINDER MD Ot Z79.4 HOSE SPRAYER (CURRENT) USE OF INSULIN 11/16/2015 GEORGINA LINDER MD, Ot Z79.899 OTHER FPC (CURRENT) DRUG THERAPY 12/02/2015 GEORGINA LINDER MD, Ot D50.9 IRON DEFICIENCY ANEMIA, UNSPECIFIED 12/02/2015 GEORGINA LINDER MD, Ot E11.22 TYPE 2 DIABETES MELLITUS W DIABETIC SCOOP FILLER 12/02/2015 GEORGINA LINDER MD, Ot E66.01 MORBID (SEVERE) OBESITY DUE TO EXCESS CA 12/02/2015 GEORGINA LINDER MD, Ot I12.9 HYPERTENSIVE CHRONIC KIDNEY DISEASE W ST 12/02/2015 GEORGINA LINDER MD Ot J45.909 UNSPECIFIED ASTHMA, UNCOMPLICATED 12/02/2015 GEORGINA LINDER MD, Ot N18.9 CHRONIC KIDNEY DISEASE, UNSPECIFIED 12/02/2015 GEORGINA LINDER MD Ot N28.89 OTHER SPECIFIED DISORDERS OF KIDNEY AND 12/02/2015 GEORGINA LINDER MD Ot Z68.41 BODY MASS INDEX (BMI) 40.0-44.9, ADULT 12/02/2015 GEORGINA LINDER MD Ot Z79.4 FPC (CURRENT) USE OF INSULIN 12/02/2015 GEORGINA LINDER MD, Ot Z79.899 OTHER FPC (CURRENT) DRUG THERAPY 12/07/2015 Ot 721.3 LUMBOSACRAL SPONDYLOSIS 12/07/2015 CHRIS CANDELARIO Ot 719.06 JOINT EFFUSION-L/LEG 12/07/2015 CHRIS CANDELARIO Ot 719.46 JOINT PAIN-L/LEG 12/07/2015 CHRIS CANDELARIO Ot 836.1 TEAR LAT MENISC KNEE-CUR 12/07/2015 CHRIS CANDELARIO Ot E000.8 OTHER EXTERNAL CAUSE STATUS 12/07/2015 CHRIS CANDELARIO Ot E849.0 ACCIDENT IN HOME 12/07/2015 CHRIS CANDELARIO Ot E928.9 ACCIDENT NOS 12/07/2015 JENNY HENDRIX MD Ot 727.61 ROTATOR CUFF RUPTURE 12/07/2015 JENNY HENDRIX MD Ot V72.84 EXAM PRE-OPERATIVE NOS 12/07/2015 JENNY HENDRIX MD Ot 453.40 ACUTE VENOUS EMBOLISM THROMBOSIS UNSP 12/07/2015 GEORGINA LINDER MD, Ot N28.89 OTHER SPECIFIED DISORDERS OF KIDNEY AND 12/07/2015 GEORGINA LINDER MD Ot R91.8 OTHER NONSPECIFIC ABNORMAL FINDING OF LEYDI 12/07/2015 GEORGINA LINDER MD Ot D50.9 IRON DEFICIENCY ANEMIA, UNSPECIFIED 12/07/2015 GEORGINA LINDER MD Ot E11.22 TYPE 2 DIABETES MELLITUS W DIABETIC SCOOP FILLER 12/07/2015 GEORGINA LINDER MD Ot E66.01 MORBID (SEVERE) OBESITY DUE TO EXCESS CA 12/07/2015 GEORGINA LINDER MD Ot I12.9 HYPERTENSIVE CHRONIC KIDNEY DISEASE W ST 12/07/2015 GEORGINA LINDER MD, Ot J45.909 UNSPECIFIED ASTHMA, UNCOMPLICATED 12/07/2015 GEORGINA LINDER MD Ot N18.9 CHRONIC KIDNEY DISEASE, UNSPECIFIED 12/07/2015 GEORGINA LINDER MD, Ot N28.89 OTHER SPECIFIED DISORDERS OF KIDNEY AND 12/07/2015 GEORGINA LINDER MD Ot Z68.41 BODY MASS INDEX (BMI) 40.0-44.9, ADULT 12/07/2015 GEORGINA LINDER MD Ot Z79.4 HOSE SPRAYER (CURRENT) USE OF INSULIN 12/07/2015 GEORGINA LINDER MD, Ot Z79.899 OTHER FPC (CURRENT) DRUG THERAPY 12/08/2015 GEORGINA LINDER MD, Ot N28.89 OTHER SPECIFIED DISORDERS OF KIDNEY AND 12/10/2015 GEORGINA LINDER MD, Ot N28.89 OTHER SPECIFIED DISORDERS OF KIDNEY AND 12/21/2015 GEORGINA LINDER MD, Ot N28.89 OTHER SPECIFIED DISORDERS OF KIDNEY AND 12/23/2015 GEORGINA LINDER MD, Ot N28.9 DISORDER OF KIDNEY AND URETER, UNSPECIFI 12/23/2015 GEORGINA LINDER MD, Ot R59.0 LOCALIZED ENLARGED LYMPH NODES 12/23/2015 GEORGINA LINDER MD, Ot R91.8 OTHER NONSPECIFIC ABNORMAL FINDING OF LEYDI 12/24/2015 GEORGINA LINDER MD, Ot D50.9 IRON DEFICIENCY ANEMIA, UNSPECIFIED 12/24/2015 GEORGINA LINDER MD Ot E11.22 TYPE 2 DIABETES MELLITUS W DIABETIC SCOOP FILLER 12/24/2015 GEORGINA LINDER MD, Ot E66.01 MORBID (SEVERE) OBESITY DUE TO EXCESS CA 12/24/2015 GEORGINA LINDER MD Ot I12.9 HYPERTENSIVE CHRONIC KIDNEY DISEASE W ST 12/24/2015 GEORGINA LINDER MD, Ot J45.909 UNSPECIFIED ASTHMA, UNCOMPLICATED 12/24/2015 GEORGINA LINDER MD, Ot N18.9 CHRONIC KIDNEY DISEASE, UNSPECIFIED 12/24/2015 GEORGINA LINDER MD, Ot N28.89 OTHER SPECIFIED DISORDERS OF KIDNEY AND 12/24/2015 GEORGINA LINDER MD Ot Z68.41 BODY MASS INDEX (BMI) 40.0-44.9, ADULT 12/24/2015 GEORGINA LINDER MD, Ot Z79.4 HOSE SPRAYER (CURRENT) USE OF INSULIN 12/24/2015 GEORGINA LINDER MD, Ot Z79.899 OTHER FPC (CURRENT) DRUG THERAPY 12/28/2015 GEORGINA LINDER MD, Ot N28.9 DISORDER OF KIDNEY AND URETER, UNSPECIFI 12/28/2015 GEORGINA LINDER MD, Ot R59.0 LOCALIZED ENLARGED LYMPH NODES 12/28/2015 GEORGINA LINDER MD Ot R91.8 OTHER NONSPECIFIC ABNORMAL FINDING OF LEYDI 12/30/2015 GALE SOLIZ Ot E11.9 TYPE 2 DIABETES MELLITUS WITHOUT COMPLIC 12/30/2015 GALE SOLIZ Ot I51.7 CARDIOMEGALY 12/30/2015 GALE SOLIZ Ot R60.1 GENERALIZED EDEMA 12/30/2015 GALE SOLIZ Ot E11.9 TYPE 2 DIABETES MELLITUS WITHOUT COMPLIC 12/30/2015 GALE SOLIZ Ot I51.7 CARDIOMEGALY 12/30/2015 GALE SOLIZ Ot R60.1 GENERALIZED EDEMA 01/07/2016 GEORGINA LINDER MD, Ot N28.9 DISORDER OF KIDNEY AND URETER, UNSPECIFI 01/07/2016 GEORGINA LINDER MD, Ot R59.0 LOCALIZED ENLARGED LYMPH NODES 01/07/2016 GEORGINA LINDER MD, Ot R91.8 OTHER NONSPECIFIC ABNORMAL FINDING OF LEYDI 01/12/2016 GEORGINA LINDER MD, Ot R91.8 OTHER NONSPECIFIC ABNORMAL FINDING OF LEYDI 01/12/2016 GEORGINA LINDER MD, Ot Z53.8 PROCEDURE AND TREATMENT NOT CARRIED OUT 01/12/2016 GEORGINA LINDER MD, Ot Z79.82 FPC (CURRENT) USE OF ASPIRIN 01/13/2016 GEORGINA LINDER MD, Ot R91.8 OTHER NONSPECIFIC ABNORMAL FINDING OF LEYDI 01/13/2016 GEORGINA LINDER MD, Ot Z53.8 PROCEDURE AND TREATMENT NOT CARRIED OUT 01/13/2016 GEORGINA LINDER MD, Ot Z79.82 FPC (CURRENT) USE OF ASPIRIN 01/28/2016 GEORGINA LINDER MD, Ot R91.8 OTHER NONSPECIFIC ABNORMAL FINDING OF LEYDI 02/11/2016 GEORGINA LINDER MD, Ot R91.8 OTHER NONSPECIFIC ABNORMAL FINDING OF LEYDI 02/29/2016 GEORGINA LINDER MD, Ot D50.9 IRON DEFICIENCY ANEMIA, UNSPECIFIED 02/29/2016 GOERGINA LINDER MD, Ot E11.22 TYPE 2 DIABETES MELLITUS W DIABETIC SCOOP FILLER 02/29/2016 GEORGINA LINDER MD, Ot E66.01 MORBID (SEVERE) OBESITY DUE TO EXCESS CA 02/29/2016 GEORGINA LINDER MD, Ot I12.9 HYPERTENSIVE CHRONIC KIDNEY DISEASE W ST 02/29/2016 GEORGINA LINDER MD, Ot J45.909 UNSPECIFIED ASTHMA, UNCOMPLICATED 02/29/2016 GEORGINA LINDER MD, Ot N18.9 CHRONIC KIDNEY DISEASE, UNSPECIFIED 02/29/2016 GEORGINA LINDER MD, Ot N28.89 OTHER SPECIFIED DISORDERS OF KIDNEY AND 02/29/2016 GEORGINA LINDER MD, Ot Z68.41 BODY MASS INDEX (BMI) 40.0-44.9, ADULT 02/29/2016 GEORGINA LINDER MD, Ot Z79.4 FPC (CURRENT) USE OF INSULIN 02/29/2016 GEORGINA LINDER MD Ot Z79.899 OTHER FPC (CURRENT) DRUG THERAPY 03/08/2016 GEORGINA LINDER MD Ot D50.9 IRON DEFICIENCY ANEMIA, UNSPECIFIED 03/08/2016 GEORGINA LINDER MD Ot E11.22 TYPE 2 DIABETES MELLITUS W DIABETIC SCOOP FILLER 03/08/2016 GEORGINA LINDER MD Ot E66.01 MORBID (SEVERE) OBESITY DUE TO EXCESS CA 03/08/2016 GEORGINA LINDER MD Ot I12.9 HYPERTENSIVE CHRONIC KIDNEY DISEASE W ST 03/08/2016 GEORGINA LINDER MD, Ot J45.909 UNSPECIFIED ASTHMA, UNCOMPLICATED 03/08/2016 GEORGINA LINDER MD, Ot N18.9 CHRONIC KIDNEY DISEASE, UNSPECIFIED 03/08/2016 GEORGINA LINDER MD Ot N28.89 OTHER SPECIFIED DISORDERS OF KIDNEY AND 03/08/2016 GEORGINA LINDER MD Ot Z68.41 BODY MASS INDEX (BMI) 40.0-44.9, ADULT 03/08/2016 GEORGINA LINDER MD Ot Z79.4 FPC (CURRENT) USE OF INSULIN 03/08/2016 GEORGINA LINDER MD, Ot Z79.899 OTHER HOSE SPRAYER (CURRENT) DRUG THERAPY 04/08/2016 GEORGINA LINDER MD Ot D50.9 IRON DEFICIENCY ANEMIA, UNSPECIFIED 04/08/2016 GEORGINA LINDER MD Ot E11.22 TYPE 2 DIABETES MELLITUS W DIABETIC SCOOP FILLER 04/08/2016 GEORGINA LINDER MD Ot E66.01 MORBID (SEVERE) OBESITY DUE TO EXCESS CA 04/08/2016 GEORGINA LINDER MD Ot I12.9 HYPERTENSIVE CHRONIC KIDNEY DISEASE W ST 04/08/2016 GEORGINA LINDER MD Ot J45.909 UNSPECIFIED ASTHMA, UNCOMPLICATED 04/08/2016 GEORGINA LINDER MD Ot N18.9 CHRONIC KIDNEY DISEASE, UNSPECIFIED 04/08/2016 GEORGINA LINDER MD Ot N28.89 OTHER SPECIFIED DISORDERS OF KIDNEY AND 04/08/2016 GEORGINA LINDER MD Ot Z68.41 BODY MASS INDEX (BMI) 40.0-44.9, ADULT 04/08/2016 GEORGINA LINDER MD Ot Z79.4 HOSE SPRAYER (CURRENT) USE OF INSULIN 04/08/2016 GEORGINA LINDER MD Ot Z79.899 OTHER HOSE SPRAYER (CURRENT) DRUG THERAPY 05/11/2016 Ot 721.3 LUMBOSACRAL SPONDYLOSIS 05/11/2016 CHRIS CANDELARIO Ot 719.06 JOINT EFFUSION-L/LEG 05/11/2016 CHRIS CANDELARIO Ot 719.46 JOINT PAIN-L/LEG 05/11/2016 CHRIS CANDELARIO Ot 836.1 TEAR LAT MENISC KNEE-CUR 05/11/2016 CHRIS CANDELARIO Ot E000.8 OTHER EXTERNAL CAUSE STATUS 05/11/2016 CHRIS CANDELARIO Ot E849.0 ACCIDENT IN HOME 05/11/2016 CHRIS CANDELARIO Ot E928.9 ACCIDENT NOS 05/11/2016 JENNY HENDRIX MD Ot 727.61 ROTATOR CUFF RUPTURE 05/11/2016 JENNY HENDRIX MD Ot V72.84 EXAM PRE-OPERATIVE NOS 05/11/2016 JENNY HENDRIX MD Ot 453.40 ACUTE VENOUS EMBOLISM THROMBOSIS UNSP 05/11/2016 GEORGINA LINDER MD, Ot N28.89 OTHER SPECIFIED DISORDERS OF KIDNEY AND 05/11/2016 GEORGINA LINDER MD Ot R91.8 OTHER NONSPECIFIC ABNORMAL FINDING OF LEYDI 05/11/2016 GEORGINA LINDER MD, Ot N28.89 OTHER SPECIFIED DISORDERS OF KIDNEY AND 05/11/2016 GEORGINA LINDER MD, Ot N28.9 DISORDER OF KIDNEY AND URETER, UNSPECIFI 05/11/2016 GEORGINA LINDER MD Ot R59.0 LOCALIZED ENLARGED LYMPH NODES 05/11/2016 GEORGINA LINDER MD Ot R91.8 OTHER NONSPECIFIC ABNORMAL FINDING OF LEYDI 05/11/2016 GALE SOLIZ Ot E11.9 TYPE 2 DIABETES MELLITUS WITHOUT COMPLIC 05/11/2016 GALE SOLIZ Ot I51.7 CARDIOMEGALY 05/11/2016 GALE SOLIZ Ot R60.1 GENERALIZED EDEMA 05/11/2016 GEORGINA LINDER MD Ot R91.8 OTHER NONSPECIFIC ABNORMAL FINDING OF LEYDI 05/11/2016 GEORGINA LINDER MD Ot D50.9 IRON DEFICIENCY ANEMIA, UNSPECIFIED 05/11/2016 GEORGINA LINDER MD Ot E11.22 TYPE 2 DIABETES MELLITUS W DIABETIC SCOOP FILLER 05/11/2016 GEORGINA LINDER MD Ot E66.01 MORBID (SEVERE) OBESITY DUE TO EXCESS CA 05/11/2016 GEORGINA LINDER MD Ot I12.9 HYPERTENSIVE CHRONIC KIDNEY DISEASE W ST 05/11/2016 GEORGINA LINDER MD, Ot J45.909 UNSPECIFIED ASTHMA, UNCOMPLICATED 05/11/2016 GEORGINA LINDER MD, Ot N18.9 CHRONIC KIDNEY DISEASE, UNSPECIFIED 05/11/2016 GEORGINA LINDER MD, Ot N28.89 OTHER SPECIFIED DISORDERS OF KIDNEY AND 05/11/2016 GEORGINA LINDER MD, Ot Z68.41 BODY MASS INDEX (BMI) 40.0-44.9, ADULT 05/11/2016 GEORGINA LINDER MD, Ot Z79.4 HOSE SPRAYER (CURRENT) USE OF INSULIN 05/11/2016 GEORGINA LINDER MD, Ot Z79.899 OTHER [facility]PC (CURRENT) DRUG THERAPY 05/12/2016 DINA STYLES MD Ot C64.9 MALIGNANT NEOPLASM OF UNSP KIDNEY, EXCEP 05/12/2016 DINA STYLES MD, Ot 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 05/12/2016 DINA STYLES MD, Ot N28.9 DISORDER OF KIDNEY AND URETER, UNSPECIFI 05/12/2016 DINA STYLES MD Ot R91.8 OTHER NONSPECIFIC ABNORMAL FINDING OF LEYDI 05/12/2016 DINA STYLES MD Ot Z96.89 PRESENCE OF OTHER SPECIFIED FUNCTIONAL I 06/05/2016 GEORGINA LINDER MD Ot D50.9 IRON DEFICIENCY ANEMIA, UNSPECIFIED 06/05/2016 GEORGINA LINDER MD Ot E11.22 TYPE 2 DIABETES MELLITUS W DIABETIC SCOOP FILLER 06/05/2016 GEORGINA LINDER MD, Ot E66.01 MORBID (SEVERE) OBESITY DUE TO EXCESS CA 06/05/2016 GEORGINA LINDER MD, Ot I12.9 HYPERTENSIVE CHRONIC KIDNEY DISEASE W ST 06/05/2016 GEORGINA LINDER MD, Ot J45.909 UNSPECIFIED ASTHMA, UNCOMPLICATED 06/05/2016 GEORGINA LINDER MD, Ot N18.9 CHRONIC KIDNEY DISEASE, UNSPECIFIED 06/05/2016 GEORGINA LINDER MD, Ot N28.89 OTHER SPECIFIED DISORDERS OF KIDNEY AND 06/05/2016 GEORGINA LINDER MD, Ot Z68.41 BODY MASS INDEX (BMI) 40.0-44.9, ADULT 06/05/2016 GEORGINA LINDER MD, Ot Z79.4 HOSE SPRAYER (CURRENT) USE OF INSULIN 06/05/2016 GEORGINA LINDER MD, Ot Z79.899 OTHER HOSE SPRAYER (CURRENT) DRUG THERAPY 06/22/2016 DINA STYLES MD Ot C64.9 MALIGNANT NEOPLASM OF UNSP KIDNEY, EXCEP 06/22/2016 DINA STYLES MD Ot 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 06/22/2016 DINA STYLES MD Ot N28.9 DISORDER OF KIDNEY AND URETER, UNSPECIFI 06/22/2016 DINA STYLES MD Ot R91.8 OTHER NONSPECIFIC ABNORMAL FINDING OF LEYDI 06/22/2016 DINA STYLES MD Ot Z96.89 PRESENCE OF OTHER SPECIFIED FUNCTIONAL I 06/24/2016 DINA STYLES MD, Ot C64.9 MALIGNANT NEOPLASM OF UNSP KIDNEY, EXCEP 06/24/2016 DINA STYLES MD, Ot 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 06/24/2016 DINA STYLES MD, Ot N28.9 DISORDER OF KIDNEY AND URETER, UNSPECIFI 06/24/2016 DINA STYLES MD Ot R91.8 OTHER NONSPECIFIC ABNORMAL FINDING OF LEYDI 06/24/2016 DINA STYLES MD Ot Z96.89 PRESENCE OF OTHER SPECIFIED FUNCTIONAL I 08/12/2016 Ot 721.3 LUMBOSACRAL SPONDYLOSIS 08/12/2016 CHRIS CANDELARIO Ot 719.06 JOINT EFFUSION-L/LEG 08/12/2016 CHRIS CANDELARIO Ot 719.46 JOINT PAIN-L/LEG 08/12/2016 CHRIS CANDELARIO Ot 836.1 TEAR LAT MENISC KNEE-CUR 08/12/2016 CHRIS CANDELARIO Ot E000.8 OTHER EXTERNAL CAUSE STATUS 08/12/2016 CHRIS CANDELARIO Ot E849.0 ACCIDENT IN HOME 08/12/2016 CHRIS CANDELARIO Ot E928.9 ACCIDENT NOS 08/12/2016 JENNY HENDRIX MD Ot 453.40 ACUTE VENOUS EMBOLISM THROMBOSIS UNSP 08/13/2016 GEORGINA LINDER MD Ot D50.9 IRON DEFICIENCY ANEMIA, UNSPECIFIED 08/13/2016 GEORGINA LINDER MD Ot E11.22 TYPE 2 DIABETES MELLITUS W DIABETIC SCOOP FILLER 08/13/2016 GEORGINA LINDER MD, Ot E66.01 MORBID (SEVERE) OBESITY DUE TO EXCESS CA 08/13/2016 GEORGINA LINDER MD Ot I12.9 HYPERTENSIVE CHRONIC KIDNEY DISEASE W ST 08/13/2016 GEORGINA LINDER MD Ot J45.909 UNSPECIFIED ASTHMA, UNCOMPLICATED 08/13/2016 GEORGINA LINDER MD Ot N18.9 CHRONIC KIDNEY DISEASE, UNSPECIFIED 08/13/2016 GEORGINA LINDER MD, Ot N28.89 OTHER SPECIFIED DISORDERS OF KIDNEY AND 08/13/2016 GEORGINA LINDER MD Ot Z68.41 BODY MASS INDEX (BMI) 40.0-44.9, ADULT 08/13/2016 GEORGINA LINDER MD Ot Z79.4 FPC (CURRENT) USE OF INSULIN 08/13/2016 GEORGINA LINDER MD, Ot Z79.899 OTHER HOSE SPRAYER (CURRENT) DRUG THERAPY 08/24/2016 GEORGINA LINDER MD Ot D50.9 IRON DEFICIENCY ANEMIA, UNSPECIFIED 08/24/2016 GEORGINA LINDER MD Ot E11.22 TYPE 2 DIABETES MELLITUS W DIABETIC SCOOP FILLER 08/24/2016 GEORGINA LINDER MD, Ot E66.01 MORBID (SEVERE) OBESITY DUE TO EXCESS CA 08/24/2016 GEORGINA LINDER MD Ot I12.9 HYPERTENSIVE CHRONIC KIDNEY DISEASE W ST 08/24/2016 GEORGINA LINDER MD Ot J45.909 UNSPECIFIED ASTHMA, UNCOMPLICATED 08/24/2016 GEORGINA LINDER MD, Ot N18.9 CHRONIC KIDNEY DISEASE, UNSPECIFIED 08/24/2016 GEORGINA LINDER MD, Ot N28.89 OTHER SPECIFIED DISORDERS OF KIDNEY AND 08/24/2016 GEORGINA LINDER MD, Ot Z68.41 BODY MASS INDEX (BMI) 40.0-44.9, ADULT 08/24/2016 GEORGINA LINDER MD, Ot Z79.4 FPC (CURRENT) USE OF INSULIN 08/24/2016 GEORGINA LINDER MD, Ot Z79.899 OTHER HOSE SPRAYER (CURRENT) DRUG THERAPY 08/24/2016 DINA STYLES MD Ot C64.1 MALIGNANT NEOPLASM OF RIGHT KIDNEY, EXCE 08/24/2016 DINA STYLES MD Ot R91.8 OTHER NONSPECIFIC ABNORMAL FINDING OF LEYDI 08/29/2016 DINA STYLES MD Ot C64.1 MALIGNANT NEOPLASM OF RIGHT KIDNEY, EXCE 08/29/2016 DINA STYLES MD Ot R91.8 OTHER NONSPECIFIC ABNORMAL FINDING OF LEYDI 09/14/2016 DINA STYLES MD Ot C64.1 MALIGNANT NEOPLASM OF RIGHT KIDNEY, EXCE 09/14/2016 DINA STYLES MD M Ot R91.8 OTHER NONSPECIFIC ABNORMAL FINDING OF LEYDI 09/30/2016 DINA STYLES MD Ot C64.1 MALIGNANT NEOPLASM OF RIGHT KIDNEY, EXCE 09/30/2016 DINA STYLES MD M Ot R91.8 OTHER NONSPECIFIC ABNORMAL FINDING OF LEYDI 12/23/2016 DINA STYLES MD M Ot C64.9 MALIGNANT NEOPLASM OF UNSP KIDNEY, EXCEP 12/23/2016 DINA STYLES MD Ot 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 12/23/2016 DINA STYLES MD M Ot R91.8 OTHER NONSPECIFIC ABNORMAL FINDING OF LEYDI 01/13/2017 DINA STYLES MD Ot C64.9 MALIGNANT NEOPLASM OF UNSP KIDNEY, EXCEP 01/13/2017 DINA STYLES MD M Ot 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 01/13/2017 DINA STYLES MD M Ot R91.8 OTHER NONSPECIFIC ABNORMAL FINDING OF LEYDI 01/24/2017 DINA STYLES MD Ot C64.9 MALIGNANT NEOPLASM OF UNSP KIDNEY, EXCEP 01/24/2017 DINA STYLES MD M Ot 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 01/24/2017 DINA STYLES MD M Ot R91.8 OTHER NONSPECIFIC ABNORMAL FINDING OF LEYDI 04/07/2017 CHRIS CANDELARIO L Ot 719.06 JOINT EFFUSION-L/LEG 04/07/2017 CHRIS CANDELARIO L Ot 719.46 JOINT PAIN-L/LEG 04/07/2017 CHRIS CANDELARIO Ot 836.1 TEAR LAT MENISC KNEE-CUR 04/07/2017 CHRIS CANDELARIO Ot E000.8 OTHER EXTERNAL CAUSE STATUS 04/07/2017 CHRIS CANDELARIO Ot E849.0 ACCIDENT IN HOME 04/07/2017 CHRIS CANDELARIO Ot E928.9 ACCIDENT NOS 04/07/2017 JENNY HENDRIX MD Ot 727.61 ROTATOR CUFF RUPTURE 04/07/2017 JENNY HENDRIX MD Ot V72.84 EXAM PRE-OPERATIVE NOS 04/07/2017 JENNY HENDRIX MD Ot 453.40 ACUTE VENOUS EMBOLISM THROMBOSIS UNSP 04/07/2017 GEORGINA LINDER MD Ot N28.89 OTHER SPECIFIED DISORDERS OF KIDNEY AND 04/07/2017 GEORGINA LINDER MD Ot R91.8 OTHER NONSPECIFIC ABNORMAL FINDING OF LEYDI 04/07/2017 GEORGINA LINDER MD Ot N28.89 OTHER SPECIFIED DISORDERS OF KIDNEY AND 04/07/2017 GEORGINA LINDER MD Ot N28.9 DISORDER OF KIDNEY AND URETER, UNSPECIFI 04/07/2017 GEORGINA LINDER MD Ot R59.0 LOCALIZED ENLARGED LYMPH NODES 04/07/2017 GEORGINA LINDER MD Ot R91.8 OTHER NONSPECIFIC ABNORMAL FINDING OF LEYDI 04/07/2017 GALE SOLIZ RN DOCUMENTATION Ot E11.9 TYPE 2 DIABETES MELLITUS WITHOUT COMPLIC 04/07/2017 HEYDI GALE Avila RN DOCUMENTATION Ot I51.7 CARDIOMEGALY 04/07/2017 HEYDI GALE Austin RN DOCUMENTATION Ot R60.1 GENERALIZED EDEMA 04/07/2017 GEORGINA LINDER MD Ot R91.8 OTHER NONSPECIFIC ABNORMAL FINDING OF LEYDI 04/07/2017 DINA STYLES MD Ot C64.9 MALIGNANT NEOPLASM OF UNSP KIDNEY, EXCEP 04/07/2017 DINA STYLES MD Ot 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 04/07/2017 DINA STYLES MD Ot N28.9 DISORDER OF KIDNEY AND URETER, UNSPECIFI 04/07/2017 DINA STYLES MD Ot R91.8 OTHER NONSPECIFIC ABNORMAL FINDING OF LEYDI 04/07/2017 DINA STYLES MD Ot Z96.89 PRESENCE OF OTHER SPECIFIED FUNCTIONAL I 04/07/2017 DINA STYLES MD Ot C64.1 MALIGNANT NEOPLASM OF RIGHT KIDNEY, EXCE 04/07/2017 DINA STYLES MD Ot R91.8 OTHER NONSPECIFIC ABNORMAL FINDING OF LEYDI 04/07/2017 DINA STYLES MD Ot C64.9 MALIGNANT NEOPLASM OF UNSP KIDNEY, EXCEP 04/07/2017 DINA STYLES MD Ot 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 04/07/2017 DINA STYLES MD Ot R91.8 OTHER NONSPECIFIC ABNORMAL FINDING OF LEYDI 04/12/2017 DINA STYLES MD Ot C64.1 MALIGNANT NEOPLASM OF RIGHT KIDNEY, EXCE 04/12/2017 DINA STYLES MD Ot C78.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 04/12/2017 DINA STYLES MD Ot K42.9 UMBILICAL HERNIA WITHOUT OBSTRUCTION OR 04/12/2017 DINA STYLES MD Ot R91.8 OTHER NONSPECIFIC ABNORMAL FINDING OF LEYDI 04/12/2017 DINA STYLES MD Ot Z99.2 DEPENDENCE ON RENAL DIALYSIS 04/12/2017 DINA STYLES MD Ot C64.1 MALIGNANT NEOPLASM OF RIGHT KIDNEY, EXCE 04/12/2017 DINA STYLES MD Ot C78.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 04/12/2017 DINA STYLES MD Ot K42.9 UMBILICAL HERNIA WITHOUT OBSTRUCTION OR 04/12/2017 DINA STYLES MD Ot R91.8 OTHER NONSPECIFIC ABNORMAL FINDING OF LEYDI 04/12/2017 DINA STYLES MD Ot Z99.2 DEPENDENCE ON RENAL DIALYSIS 05/05/2017 DINA STYLES MD Ot C64.1 MALIGNANT NEOPLASM OF RIGHT KIDNEY, EXCE 05/05/2017 DINA STYLES MD Ot C78.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 05/05/2017 DINA STYLES MD Ot K42.9 UMBILICAL HERNIA WITHOUT OBSTRUCTION OR 05/05/2017 DINA STYLES MD Ot R91.8 OTHER NONSPECIFIC ABNORMAL FINDING OF LEYDI 05/05/2017 DINA STYLES MD Ot Z99.2 DEPENDENCE ON RENAL DIALYSIS 05/18/2017 CHRIS CANDELARIO Ot 719.06 JOINT EFFUSION-L/LEG 05/18/2017 CHRIS CANDELARIO Ot 719.46 JOINT PAIN-L/LEG 05/18/2017 CHRIS CANDELARIO Ot 836.1 TEAR LAT MENISC KNEE-CUR 05/18/2017 CHRIS CANDELARIO Ot E000.8 OTHER EXTERNAL CAUSE STATUS 05/18/2017 CHRIS CANDELARIO Ot E849.0 ACCIDENT IN HOME 05/18/2017 CHRIS CANDELARIO Ot E928.9 ACCIDENT NOS 05/18/2017 JENNY HENDRIX MD Ot 727.61 ROTATOR CUFF RUPTURE 05/18/2017 JENNY HENDRIX MD Ot V72.84 EXAM PRE-OPERATIVE NOS 05/18/2017 JENNY HENDRIX MD Ot 453.40 ACUTE VENOUS EMBOLISM THROMBOSIS UNSP 05/18/2017 GEORGINA LINDER MD Ot N28.89 OTHER SPECIFIED DISORDERS OF KIDNEY AND 05/18/2017 GEORGINA LINDER MD Ot R91.8 OTHER NONSPECIFIC ABNORMAL FINDING OF LEYDI 05/18/2017 GEORGINA LINDER MD Ot N28.89 OTHER SPECIFIED DISORDERS OF KIDNEY AND 05/18/2017 GEORGINA LINDER MD Ot N28.9 DISORDER OF KIDNEY AND URETER, UNSPECIFI 05/18/2017 GEORGINA LINDER MD Ot R59.0 LOCALIZED ENLARGED LYMPH NODES 05/18/2017 GOERGINA LINDER MD Ot R91.8 OTHER NONSPECIFIC ABNORMAL FINDING OF LEYDI 05/18/2017 GALE SOLIZ RN DOCUMENTATION Ot E11.9 TYPE 2 DIABETES MELLITUS WITHOUT COMPLIC 05/18/2017 GALE SOLIZ RN DOCUMENTATION Ot I51.7 CARDIOMEGALY 05/18/2017 GALE SOLIZ RN DOCUMENTATION Ot R60.1 GENERALIZED EDEMA 05/18/2017 GEORGINA LINDER MD Ot R91.8 OTHER NONSPECIFIC ABNORMAL FINDING OF LEYDI 05/18/2017 DINA STYLES MD Ot C64.9 MALIGNANT NEOPLASM OF UNSP KIDNEY, EXCEP 05/18/2017 DINA STYLES MD Ot 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 05/18/2017 DINA STYLES MD Ot N28.9 DISORDER OF KIDNEY AND URETER, UNSPECIFI 05/18/2017 DINA STYLES MD Ot R91.8 OTHER NONSPECIFIC ABNORMAL FINDING OF LEYDI 05/18/2017 DINA STYLES MD Ot Z96.89 PRESENCE OF OTHER SPECIFIED FUNCTIONAL I 05/18/2017 DINA STYLES MD Ot C64.1 MALIGNANT NEOPLASM OF RIGHT KIDNEY, EXCE 05/18/2017 DINA STYLES MD M Ot R91.8 OTHER NONSPECIFIC ABNORMAL FINDING OF LEYDI 05/18/2017 DINA STYLES MD Ot C64.9 MALIGNANT NEOPLASM OF UNSP KIDNEY, EXCEP 05/18/2017 DINA STYLES MD Ot 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 05/18/2017 DINA STYLES MD Ot R91.8 OTHER NONSPECIFIC ABNORMAL FINDING OF LEYDI 05/18/2017 DINA STYLES MD Ot C64.1 MALIGNANT NEOPLASM OF RIGHT KIDNEY, EXCE 05/18/2017 DINA STYLES MD Ot C78.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 05/18/2017 DINA STYLES MD Ot K42.9 UMBILICAL HERNIA WITHOUT OBSTRUCTION OR 05/18/2017 DINA STYLES MD M Ot R91.8 OTHER NONSPECIFIC ABNORMAL FINDING OF LEYDI 05/18/2017 DINA STYLES MD Ot Z99.2 DEPENDENCE ON RENAL DIALYSIS 05/19/2017 HUERTA, PETER J FIREARMS MODEL MAKER Ot C64.9 MALIGNANT NEOPLASM OF UNSP KIDNEY, EXCEP 05/19/2017 HARDY HUERTA APRN Ot 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 05/19/2017 HARDY HUERTA APRN Ot E11.22 TYPE 2 DIABETES MELLITUS W DIABETIC SCOOP FILLER 05/19/2017 HARDY HUERTA APRN Ot E11.40 TYPE 2 DIABETES MELLITUS WITH DIABETIC N 05/19/2017 HARDY HUERTA APRN Ot E78.00 PURE HYPERCHOLESTEROLEMIA, UNSPECIFIED 05/19/2017 HARDY HUERTA APRN Ot I12.0 HYP CHR KIDNEY DISEASE W STAGE 5 CHR KID 05/19/2017 HARDY HUERTA APRN Ot J18.1 LOBAR PNEUMONIA, UNSPECIFIED ORGANISM 05/19/2017 HARDY HUERTA APRN Ot J45.901 UNSPECIFIED ASTHMA WITH (ACUTE) EXACERBA 05/19/2017 HARDY HUERTA APRN Ot K21.9 GASTRO-ESOPHAGEAL REFLUX DISEASE WITHOUT 05/19/2017 HARDY HUERTA APRN Ot N18.6 END STAGE RENAL DISEASE 05/19/2017 HARDY HUERTA APRN Ot R50.9 FEVER, UNSPECIFIED 05/19/2017 HARDY HUERTA APRN Ot Z79.4 FPC (CURRENT) USE OF INSULIN 05/19/2017 HARDY HUERTA APRN Ot Z79.51 FPC (CURRENT) USE OF INHALED STERO 05/19/2017 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Ot Z79.82 FPC (CURRENT) USE OF ASPIRIN 05/19/2017 HARDY HUERTA APRN Ot Z87.19 PERSONAL HISTORY OF OTHER DISEASES OF TH 05/19/2017 HARDY HUERTA APRN Ot Z99.2 DEPENDENCE ON RENAL DIALYSIS 05/22/2017 HARDY HUERTA APRN Ot C64.9 MALIGNANT NEOPLASM OF UNSP KIDNEY, EXCEP 05/22/2017 HARDY HUERTA APRN Ot 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 05/22/2017 HADRY HUERTA APRN Ot E11.22 TYPE 2 DIABETES MELLITUS W DIABETIC SCOOP FILLER 05/22/2017 HARDY HUERTA APRN Ot E11.40 TYPE 2 DIABETES MELLITUS WITH DIABETIC N 05/22/2017 HARDY HUERTA APRN Ot E78.00 PURE HYPERCHOLESTEROLEMIA, UNSPECIFIED 05/22/2017 HUERTA, PETER J FIREARMS MODEL MAKER Ot I12.0 HYP CHR KIDNEY DISEASE W STAGE 5 CHR KID 05/22/2017 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Ot J18.1 LOBAR PNEUMONIA, UNSPECIFIED ORGANISM 05/22/2017 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Ot J45.901 UNSPECIFIED ASTHMA WITH (ACUTE) EXACERBA 05/22/2017 HARDY HUERTA APRN Ot K21.9 GASTRO-ESOPHAGEAL REFLUX DISEASE WITHOUT 05/22/2017 HARDY HUERTA APRN Ot N18.6 END STAGE RENAL DISEASE 05/22/2017 HARDY HUERTA APRN Ot R50.9 FEVER, UNSPECIFIED 05/22/2017 HARDY HUERTA APRN Ot Z79.4 HOSE SPRAYER (CURRENT) USE OF INSULIN 05/22/2017 HARDY HUERTA APRN Ot Z79.51 HOSE SPRAYER (CURRENT) USE OF INHALED STERO 05/22/2017 HARDY HUERTA APRN Ot Z79.82 FPC (CURRENT) USE OF ASPIRIN 05/22/2017 HARDY HUERTA APRN Ot Z87.19 PERSONAL HISTORY OF OTHER DISEASES OF TH 05/22/2017 HARDY HUERTA APRN Ot Z99.2 DEPENDENCE ON RENAL DIALYSIS 10/11/2017 HERRERA SIMON MD Ot G47.33 OBSTRUCTIVE SLEEP APNEA (ADULT) (PEDIATR 10/12/2017 HERRERA SIMON MD Ot G47.00 INSOMNIA, UNSPECIFIED 10/12/2017 HERRERA SIMON MD Ot G47.10 HYPERSOMNIA, UNSPECIFIED 10/12/2017 HERRERA SIMON MD Ot G47.33 OBSTRUCTIVE SLEEP APNEA (ADULT) (PEDIATR 10/12/2017 HERRERA SIMON MD Ot I10 ESSENTIAL (PRIMARY) HYPERTENSION 10/12/2017 HERRERA SIMON MD Ot R06.83 SNORING 10/16/2017 HERRERA SIMON MD Ot G47.00 INSOMNIA, UNSPECIFIED 10/16/2017 HERRERA SIMON MD Ot G47.10 HYPERSOMNIA, UNSPECIFIED 10/16/2017 HERRERA SIMON MD Ot G47.33 OBSTRUCTIVE SLEEP APNEA (ADULT) (PEDIATR 10/16/2017 HERRERA SIMON MD Ot I10 ESSENTIAL (PRIMARY) HYPERTENSION 10/16/2017 HERRERA SIMON MD Ot R06.83 SNORING 10/19/2017 JENSENDINA EDMONDS MD Ot C64.1 MALIGNANT NEOPLASM OF RIGHT KIDNEY, EXCE 10/19/2017 DINA STYLES MD Ot C78.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 10/19/2017 DINA STYLES MD Ot K42.9 UMBILICAL HERNIA WITHOUT OBSTRUCTION OR 10/19/2017 DINA STYLES MD Ot R91.8 OTHER NONSPECIFIC ABNORMAL FINDING OF LEYDI 10/19/2017 DINA STYLES MD Ot Z99.2 DEPENDENCE ON RENAL DIALYSIS 10/23/2017 FARHAD ARIAS MD, Ot G47.33 OBSTRUCTIVE SLEEP APNEA (ADULT) (PEDIATR 10/25/2017 ONI STEELE K Ot E66.01 MORBID (SEVERE) OBESITY DUE TO EXCESS CA 10/25/2017 ONI STEELE K Ot I08.1 RHEUMATIC DISORDERS OF BOTH MITRAL AND T 10/25/2017 ONI STEELE K Ot I12.0 HYP CHR KIDNEY DISEASE W STAGE 5 CHR KID 10/25/2017 DAVID STEELETH K Ot I27.20 PULMONARY HYPERTENSION, UNSPECIFIED 10/25/2017 DAVID STEELETH K Ot N18.6 END STAGE RENAL DISEASE 10/25/2017 DAVID STEELETH K Ot R06.02 SHORTNESS OF BREATH 10/25/2017 ONI STEELE K Ot E66.01 MORBID (SEVERE) OBESITY DUE TO EXCESS CA 10/25/2017 DAVID STEELETH K Ot I08.1 RHEUMATIC DISORDERS OF BOTH MITRAL AND T 10/25/2017 DAVID STEELETH K Ot I12.0 HYP CHR KIDNEY DISEASE W STAGE 5 CHR KID 10/25/2017 DAVID STEELETH K Ot I27.20 PULMONARY HYPERTENSION, UNSPECIFIED 10/25/2017 DAVID STEELETH K Ot N18.6 END STAGE RENAL DISEASE 10/25/2017 ONI STEELE K Ot R06.02 SHORTNESS OF BREATH 11/01/2017 FARHAD ARIAS MD Ot G47.33 OBSTRUCTIVE SLEEP APNEA (ADULT) (PEDIATR 11/02/2017 FARHAD ARIAS MD Ot G47.33 OBSTRUCTIVE SLEEP APNEA (ADULT) (PEDIATR 11/03/2017 FARHAD ARIAS MD Ot G47.33 OBSTRUCTIVE SLEEP APNEA (ADULT) (PEDIATR 11/03/2017 JUANA BANERJEE, FARHAD Byrne Ot R06.83 SNORING 11/06/2017 FARHAD ARIAS MD Ot G47.33 OBSTRUCTIVE SLEEP APNEA (ADULT) (PEDIATR 11/06/2017 JUANA BANERJEE, FARHAD Byrne Ot R06.83 SNORING 11/15/2017 ONI STEELE Ot E66.01 MORBID (SEVERE) OBESITY DUE TO EXCESS CA 11/15/2017 ONI STEELE Ot I08.1 RHEUMATIC DISORDERS OF BOTH MITRAL AND T 11/15/2017 ONI STEELE Ot I12.0 HYP CHR KIDNEY DISEASE W STAGE 5 CHR KID 11/15/2017 ONI STEELE Ot I27.20 PULMONARY HYPERTENSION, UNSPECIFIED 11/15/2017 ONI STEELE Ot N18.6 END STAGE RENAL DISEASE 11/15/2017 ONI STEELE Ot R06.02 SHORTNESS OF BREATH 11/17/2017 DINA STYLES MD Ot C64.9 MALIGNANT NEOPLASM OF UNSP KIDNEY, EXCEP 11/17/2017 DINA STYLES MD Ot 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 11/17/2017 DINA STYLES MD Ot K42.9 UMBILICAL HERNIA WITHOUT OBSTRUCTION OR 11/22/2017 DINA STYLES MD Ot C64.9 MALIGNANT NEOPLASM OF UNSP KIDNEY, EXCEP 11/22/2017 DINA STYLES MD Ot 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 11/22/2017 DINA STYLES MD Ot K42.9 UMBILICAL HERNIA WITHOUT OBSTRUCTION OR 11/23/2017 GEORGINA LINDER MD Ot D50.9 IRON DEFICIENCY ANEMIA, UNSPECIFIED 11/23/2017 GEORGINA LINDER MD Ot E11.22 TYPE 2 DIABETES MELLITUS W DIABETIC SCOOP FILLER 11/23/2017 GEORGINA LINDRE MD Ot E66.01 MORBID (SEVERE) OBESITY DUE TO EXCESS CA 11/23/2017 GEORGINA LINDER MD Ot I12.9 HYPERTENSIVE CHRONIC KIDNEY DISEASE W ST 11/23/2017 GEORGINA LINDER MD Ot J45.909 UNSPECIFIED ASTHMA, UNCOMPLICATED 11/23/2017 GEORGINA LINDER MD Ot N18.9 CHRONIC KIDNEY DISEASE, UNSPECIFIED 11/23/2017 GEORGINA LINDER MD, Ot N28.89 OTHER SPECIFIED DISORDERS OF KIDNEY AND 11/23/2017 GEORGINA LINDER MD, Ot Z68.41 BODY MASS INDEX (BMI) 40.0-44.9, ADULT 11/23/2017 GEORGINA LINDER MD, Ot Z79.4 HOSE SPRAYER (CURRENT) USE OF INSULIN 11/23/2017 GEORGINA LINDER MD, Ot Z79.899 OTHER FPC (CURRENT) DRUG THERAPY 11/27/2017 JAREN BANERJEE, FARHAD Byrne Ot Z01.818 ENCOUNTER FOR OTHER PREPROCEDURAL EXAMIN 11/28/2017 ONI STEELE Ot E66.01 MORBID (SEVERE) OBESITY DUE TO EXCESS CA 11/28/2017 ONI STEELE Ot I08.1 RHEUMATIC DISORDERS OF BOTH MITRAL AND T 11/28/2017 ONI STEELE Ot I12.0 HYP CHR KIDNEY DISEASE W STAGE 5 CHR KID 11/28/2017 ONI STEELE Ot I27.20 PULMONARY HYPERTENSION, UNSPECIFIED 11/28/2017 ONI STEELE Ot N18.6 END STAGE RENAL DISEASE 11/28/2017 ONI STEELE Ot R06.02 SHORTNESS OF BREATH Procedures Code Description [place] [id number] MICROALBUMIN 04/03/2012 97687 A1C (IN-HOUSE) 04/03/2012 23449 MICRO ALBUMIN-IN HOUSE 04/03/2012 31229 ROUTINE VENIPUNCTURE 04/06/2012 12712 CBC 04/06/2012 28403 CMP 04/06/2012 04899 LIPID PANEL 04/06/2012 [id number] GFR CALC (RESULT ONLY) 04/06/2012 60188 TESTOSTERONE FREE 04/07/2012 J1070 Depo-Testosterone 100 mg/mL Oil 04/18/2012 02873 ROUTINE VENIPUNCTURE 04/19/2012 03402 BMP 04/19/2012 55217 C-PEPTIDE 04/19/2012 J1885 TORADOL INJ 11/21/2012 71639 A1C (IN-HOUSE) 01/14/2013 Orthopedi Reveal, Jenny 02/13/2013 79747 A1C (IN-HOUSE) 04/22/2013 PHYSICAL PHYSICAL THERAPY, VIA MERLYN 05/31/2013 J1070 Depo-Testosterone 100 mg/mL oil 01/06/2014 74013 ROUTINE VENIPUNCTURE 05/01/2014 31178 XRAY CHEST 2 VIEW 05/01/2014 37317 UA LONG DIP 05/01/2014 08537 CBC 05/01/20141281554 GFR CALC (RESULT ONLY) 05/01/2014 94071 CMP 05/01/2014 15769 BNP 05/01/2014 57.32 05/08/2014 83397 OXIMETRY 05/15/2014 71462 ROUTINE VENIPUNCTURE 05/16/2014 40160 OXIMETRY 05/16/20142119780 GFR CALC (RESULT ONLY) 05/16/2014 76439 BMP 05/16/2014 Results Test Result Range Capillary blood glucose measurement by glucometer (mass/volume) - 01/12/16 07: 54 Capillary blood glucose measurement by glucometer (mass/volume) 171 mg/dL 70-110 Automated blood complete blood count (hemogram) panel - 01/12/16 07:54 Blood leukocytes automated count (number/volume) 6.5 10*3/uL 4.3-11.0 Blood erythrocytes automated count (number/volume) 4.67 10*6/uL 4.35-5.85 Venous blood hemoglobin measurement (mass/volume) 12.3 g/dL 13.3-17.7 Blood hematocrit (volume fraction) 38 % 40-54 Automated erythrocyte mean corpuscular volume 82 [foz_us] 80-99 Automated erythrocyte mean corpuscular hemoglobin (mass per erythrocyte) 26 pg 25-34 Automated erythrocyte mean corpuscular hemoglobin concentration measurement ( mass/volume) 32 g/dL 32-36 Automated erythrocyte distribution width ratio 14.8 % 10.0-14.5 Automated blood platelet count (count/volume) 224 10*3/uL 130-400 Automated blood platelet mean volume measurement 11.5 [foz_us] 7.4-10.4 PT panel in platelet poor plasma by coagulation assay - 01/12/16 07:54 Prothrombin time (PT) in platelet poor plasma by coagulation assay 13.8 s 12.2-14.7 INR in platelet poor plasma or blood by coagulation assay 1.1 0.8-1.4 Activated partial thromboplastin time (aPTT) in platelet poor plasma bycoagulation assay - 01/12/16 07:54 Activated partial thromboplastin time (aPTT) in platelet poor plasma bycoagulation assay 28 s 24-35 Automated blood complete blood count (hemogram) panel - 01/21/16 08:25 Blood leukocytes automated count (number/volume) 6.2 10*3/uL 4.3-11.0 Blood erythrocytes automated count (number/volume) 5.23 10*6/uL 4.35-5.85 Venous blood hemoglobin measurement (mass/volume) 13.9 g/dL 13.3-17.7 Blood hematocrit (volume fraction) 42 % 40-54 Automated erythrocyte mean corpuscular volume 81 [foz_us] 80-99 Automated erythrocyte mean corpuscular hemoglobin (mass per erythrocyte) 27 pg 25-34 Automated erythrocyte mean corpuscular hemoglobin concentration measurement ( mass/volume) 33 g/dL 32-36 Automated erythrocyte distribution width ratio 14.8 % 10.0-14.5 Automated blood platelet count (count/volume) 188 10*3/uL 130-400 Automated blood platelet mean volume measurement 11.5 [foz_us] 7.4-10.4 PT panel in platelet poor plasma by coagulation assay - 01/21/16 08:25 Prothrombin time (PT) in platelet poor plasma by coagulation assay 13.4 s 12.2-14.7 INR in platelet poor plasma or blood by coagulation assay 1.1 0.8-1.4 Activated partial thromboplastin time (aPTT) in platelet poor plasma bycoagulation assay - 01/21/16 08:25 Activated partial thromboplastin time (aPTT) in platelet poor plasma bycoagulation assay 29 s 24-35 Complete blood count (CBC) with automated white blood cell (WBC) differential - 05/18/17 21:50 Blood leukocytes automated count (number/volume) 5.1 10*3/uL 4.3-11.0 Blood erythrocytes automated count (number/volume) 2.92 10*6/uL 4.35-5.85 Venous blood hemoglobin measurement (mass/volume) 9.3 g/dL 13.3-17.7 Blood hematocrit (volume fraction) 27 % 40-54 Automated erythrocyte mean corpuscular volume 92 [foz_us] 80-99 Automated erythrocyte mean corpuscular hemoglobin (mass per erythrocyte) 32 pg 25-34 Automated erythrocyte mean corpuscular hemoglobin concentration measurement ( mass/volume) 35 g/dL 32-36 Automated erythrocyte distribution width ratio 12.5 % 10.0-14.5 Automated blood platelet count (count/volume) 214 10*3/uL 130-400 Automated blood platelet mean volume measurement 10.3 [foz_us] 7.4-10.4 Automated blood neutrophils/100 leukocytes 63 % 42-75 Automated blood lymphocytes/100 leukocytes 20 % 12-44 Blood monocytes/100 leukocytes 14 % 0-12 Automated blood eosinophils/100 leukocytes 2 % 0-10 Automated blood basophils/100 leukocytes 1 % 0-10 Blood neutrophils automated count (number/volume) 3.2 10*3 1.8-7.8 Blood lymphocytes automated count (number/volume) 1.0 10*3 1.0-4.0 Blood monocytes automated count (number/volume) 0.7 10*3 0.0-1.0 Automated eosinophil count 0.1 10*3/uL 0.0-0.3 Automated blood basophil count (count/volume) 0.0 10*3/uL 0.0-0.1 Comprehensive metabolic panel - 05/18/17 21:50 Serum or plasma sodium measurement (moles/volume) 136 mmol/L 135-145 Serum or plasma potassium measurement (moles/volume) 4.6 mmol/L 3.6-5.0 Serum or plasma chloride measurement (moles/volume) 103 mmol/L 98-107 Carbon dioxide 22 mmol/L 21-32 Serum or plasma anion gap determination (moles/volume) 11 mmol/L 5-14 Serum or plasma urea nitrogen measurement (mass/volume) 32 mg/dL 7-18 Serum or plasma creatinine measurement (mass/volume) 5.90 mg/dL 0.60-1.30 Serum or plasma urea nitrogen/creatinine mass ratio 5 NRG Serum or plasma creatinine measurement with calculation of estimated glomerular filtration rate 12 NRG Serum or plasma glucose measurement (mass/volume) 255 mg/dL 70-105 Serum or plasma calcium measurement (mass/volume) 9.1 mg/dL 8.5-10.1 Serum or plasma total bilirubin measurement (mass/volume) 0.4 mg/dL 0.1-1.0 Serum or plasma alkaline phosphatase measurement (enzymatic activity/volume) 72 U/L 40-136 Serum or plasma aspartate aminotransferase measurement (enzymatic activity/ volume) 25 U/L 5-34 Serum or plasma alanine aminotransferase measurement (enzymatic activity/volume ) 13 U/L 0-55 Serum or plasma protein measurement (mass/volume) 7.1 g/dL 6.4-8.2 Serum or plasma albumin measurement (mass/volume) 3.7 g/dL 3.2-4.5 Serum heterophile antibody titer - 05/18/17 21:50 Serum heterophile antibody titer NEGATIVE NEGATIVE Streptococcus pyogenes antigen detection - 05/18/17 21:50 Streptococcus pyogenes antigen detection NEGATIVE NEGATIVE Serum or plasma lithium measurement (moles/volume) - 05/18/17 21:50 BNP level 568.7 pg/mL <100.0 Bacterial throat culture - 05/18/17 21:50 Bacterial throat culture NBS NRG Bacterial blood culture - 05/18/17 22:02 Bacterial blood culture NG NRG Blood lactic acid measurement (moles/volume) - 05/18/17 22:07 Blood lactic acid measurement (moles/volume) 0.94 mmol/L 0.50-2.00 Influenza virus A and B antigen detection - 05/18/17 22:13 FLU RESULT NEGATIVE FOR INFLUENZA A AND B ANTIGENS BY IA NRG Bacterial blood culture - 05/18/17 22:20 Bacterial blood culture NG NRG Methicillin resistant Staphylococcus aureus (MRSA) screening culture - 10:29 Methicillin resistant Staphylococcus aureus (MRSA) screening culture NEG NRG Encounters ACCT No. Visit Date/Time Discharge Status Pt. Type Provider Facility Loc./Unit Complaint [id number] 05/16/2014 08:57:00 05/16/2014 23:59:59 CLS Outpatient GALE SOLIZ APRN [id number] 05/14/2014 07:02:00 05/14/2014 23:59:59 CLS Outpatient MARIANELA LORENZO DDS [id number] 04/23/2014 14:49:00 04/23/2014 23:59:59 CLS Outpatient GALE SOLIZ APRN [id number] 03/10/2014 10:19:00 03/10/2014 23:59:59 CLS Outpatient IRIS LI DO [id number] 01/06/2014 10:37:00 01/06/2014 23:59:59 CLS Outpatient GALE SOLIZ APRN [id number] 05/31/2013 12:30:00 05/31/2013 23:59:59 CLS Outpatient GALE SOLIZ APRN [id number] 04/22/2013 10:26:00 04/22/2013 23:59:59 CLS Outpatient GALE SOLIZ APRN [id number] 03/25/2013 14:17:00 03/25/2013 23:59:59 CLS Outpatient GALE SOLIZ APRN [id number] 02/11/2013 15:12:00 02/11/2013 23:59:59 CLS Outpatient GALE SOLIZ APRN [id number] 01/14/2013 15:41:00 01/14/2013 23:59:59 CLS Outpatient GALE SOLIZ APRN [id number] 11/21/2012 16:51:00 11/21/2012 23:59:59 CLS Outpatient GALE SOLIZ APRN [id number] 09/25/2012 16:17:00 09/25/2012 23:59:59 CLS Outpatient JACKELYN GUTIÉRREZ MD [id number] 04/25/2012 14:34:00 04/25/2012 23:59:59 CLS Outpatient GALE SOLIZ APRN [id number] 04/19/2012 08:34:00 04/19/2012 23:59:59 CLS Outpatient GALE SOLIZ APRN [id number] 04/06/2012 08:01:00 04/06/2012 23:59:59 CLS Outpatient [id number] 04/03/2012 13:39:00 04/03/2012 23:59:59 CLS Outpatient [id number] 08/24/2011 18:22:00 08/24/2011 23:59:59 CLS Outpatient GALE SOLIZ APRN [id number] 08/24/2011 18:22:00 08/24/2011 23:59:59 CLS Outpatient [id number] 06/06/2012 00:00:00 Document Registration [id number] 06/04/2012 12:43:00 Document Registration [id number] 11/23/2017 10:08:00 11/23/2017 10:35:00 DIS Outpatient FARHAD EASTMAN MD [facility] PREOP LEFT KNEE CHONDROMALASIA [id number] 11/16/2017 10:05:00 11/16/2017 23:59:59 CLS Outpatient DINA STYLES MD [facility] RAD KIDNEY CANCER [id number] 11/02/2017 19:46:00 11/03/2017 06:00:00 DIS Outpatient FARHAD ARIAS MD [facility] SLEEP IRISH G47.33 [id number] 10/24/2017 12:54:00 10/24/2017 23:59:59 CLS Outpatient ONI STEELE [facility] CARD SOB, PULMONARY HTN,HTN [id number] 10/12/2017 13:05:00 10/12/2017 13:20:00 DIS Outpatient HERRERA SIMON MD [facility] SLEEP IRISH G47.33 [id number] 05/18/2017 21:19:00 05/19/2017 01:15:00 DIS Emergency 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[facility] ER FEVER 103.9, STREP [id number] 04/11/2017 08:03:00 04/11/2017 23:59:59 CLS Outpatient DINA STYLES MD [facility] RAD RENAL CELL CARCINOMA RT [id number] 12/22/2016 13:29:00 12/22/2016 23:59:59 CLS Outpatient DINA STYLES MD [facility] RAD KIDNEY CA [id number] 08/23/2016 07:36:00 08/23/2016 23:59:59 CLS Outpatient DINA STYLES MD [facility] RAD RENAL CELL CARCINOMA [id number] 06/06/2016 00:14:00 06/06/2016 23:59:59 CLS Preadmit GEORGINA LINDER MD [facility] ONC [id number] 03/25/2016 14:19:00 06/05/2016 00:01:00 DIS Outpatient GEORGINA LINDER MD [facility] ONC [id number] 05/11/2016 12:47:00 05/11/2016 23:59:59 CLS Outpatient DINA STYLES MD [facility] RAD C64.9 [id number] 02/29/2016 10:06:00 02/29/2016 00:01:00 DIS Outpatient GEORGINA LINDER MD [facility] ONC [id number] 01/21/2016 08:09:00 01/21/2016 23:59:59 CLS Outpatient GEORGINA LINDER MD [facility] RAD LUNG MASS [id number] 01/12/2016 07:00:00 01/12/2016 08:52:00 DIS Outpatient GEORGINA LINDER MD [facility] RAD LUNG MASS [id number] 12/29/2015 09:15:00 12/29/2015 23:59:59 CLS Outpatient GALE SOLIZ [facility] CARD DIABETES, CARDIOMEGALY,EDEMA [id number] 12/22/2015 08:41:00 12/22/2015 23:59:59 CLS Outpatient GEORGINA LINDER MD [facility] RAD LUNG MASS [id number] 12/04/2015 09:55:00 12/04/2015 23:59:59 CLS Outpatient GEORGINA LINDER MD [facility] RAD MASS OF KIDNEY [id number] 11/02/2015 08:57:00 11/16/2015 08:35:00 DIS Outpatient GEORGINA LINDER MD [facility] ONC [id number] 10/21/2015 09:01:00 10/21/2015 23:59:59 CLS Outpatient GEORGINA LINDER MD [facility] RAD LUNG MASS,KIDNEY MASS RIGHT [id number] 08/06/2015 08:57:00 08/06/2015 15:30:00 DIS Outpatient YOHAN GRANGER MD [facility] SDC UMBILICAL HERNIA [id number] 08/05/2015 11:40:00 08/05/2015 13:44:00 DIS Outpatient YOHAN GRANGER MD [facility] PREOP UMBILICAL HERNIA [id number] 04/28/2015 09:09:00 07/20/2015 00:01:00 DIS Outpatient GEORGINA LINDER MD [facility] ONC [id number] 04/21/2015 10:14:00 04/21/2015 23:59:59 CLS Outpatient GEORGINA LINDER MD [facility] RAD RENAL MASS [id number] 02/03/2015 08:52:00 02/04/2015 00:01:00 DIS Outpatient GEORGINA LINDER MD [facility] ONC [id number] 01/04/2015 22:57:00 01/05/2015 01:01:00 DIS Emergency TATE BANERJEE, LEEANNA Avila [facility] ER SOA [id number] 12/03/2014 09:29:00 12/03/2014 23:59:59 CLS Outpatient TOBY GOODE CAYDEN Abril [facility] PREOP HERNIA REPAIR [id number] 11/03/2014 09:03:00 11/03/2014 23:59:59 CLS Outpatient GEORGINA LINDER MD [facility] RAD LUNG MASS, KIDNEY MASS [id number] 08/12/2014 10:13:00 08/21/2014 00:01:00 DIS Outpatient GEORGINA LINDER MD [facility] ONC [id number] 05/05/2014 17:39:00 05/09/2014 11:54:00 DIS Inpatient JACKELYN GUTIÉRREZ MD [facility] 4TH EDEMA; HEMATURIA [id number] 04/29/2014 11:16:00 04/29/2014 23:59:59 CLS Outpatient GALE SOLIZ [facility] RAD R KNEE PAIN [id number] 03/10/2014 23:57:00 03/13/2014 19:00:00 DIS Inpatient JACKELYN GUTIÉRREZ MD [facility] 4TH [id number] 06/10/2013 14:45:00 06/10/2013 23:59:59 CLS Outpatient [id number] 05/02/2013 15:41:00 05/02/2013 23:59:59 CLS Outpatient JENNY HENDRIX MD [facility] RAD DVT [id number] 03/18/2013 05:47:00 03/18/2013 10:55:00 DIS Outpatient JENNY HENDRIX MD [facility] SDC RIGHT MENISCUS TEAR [id number] 03/14/2013 11:54:00 03/14/2013 23:59:59 CLS Outpatient JENNY HENDRIX MD [facility] PREOP RIGHT MENISCUS TEAR [id number] 02/18/2013 12:42:00 02/18/2013 23:59:59 CLS Outpatient CHRIS CANDELARIO [facility] RAD R KNEE PAIN,R KNEE EFFUSION [id number] 02/14/2013 21:27:00 02/14/2013 23:22:00 DIS Emergency GARRETT TIWARI, CHRIS Carvajal [facility] ER R KNEE INJ [id number] 02/07/2013 22:58:00 02/08/2013 00:02:00 DIS Emergency TATE BANERJEE, LEEANNA Avila [facility] ER SOA [id number] 11/29/2017 08:00:00 PEN Preadcony EASTMAN MD, FARHAD Byrne [facility] SDC CHONDROMALASIA LEFT PATELLA [id number] 04/11/2014 14:40:00 Document Registration [id number] 04/08/2014 15:47:00 Document Registration [id number] 04/01/2014 07:40:00 Document Registration [id number] 07/08/2011 09:36:00 Document Registration [id number] 08/23/2010 09:41:00 Document Registration [id number] 08/20/2010 10:36:00 Document Registration [id number] 05/08/2010 22:23:00 Document Registration
[2017-11-29 06:30] VITALS: BP 172/91
[2017-11-29] MEDS ORDERED: ceFAZolin 1,000 MG/10 ML (ANCEF) VIAL ONE (06:37)
[2017-11-29] MEDS ORDERED: NS (IVPB) 50 ML ONE (06:37)
[2017-11-29] MEDS ORDERED: NS IV 500 ML 500 ML IV PRN (06:48)
[2017-11-29] MEDS ORDERED: ONDANSETRON 4 MG/2 ML (SDV) Z0FRAN ONE (06:51)
[2017-11-29] MEDS ORDERED: LIDOCAINE PF 2% 5 ML (XYLOCAINE) VIAL ONE (06:51)
[2017-11-29] MEDS ORDERED: proPOfol 200 MG/20 ML (DIPRIVAN) VIAL IV ONE (06:51)
[2017-11-29] MEDS ORDERED: fentaNYL INJECTION 100 MCG/2 ML AMP ONE (06:51)
[2017-11-29] MEDS ORDERED: LACTATED RINGERS 1,000 ML IV ONE (06:51)
[2017-11-29] MEDS ORDERED: MIDAZOLAM 2 MG/2 ML (VERSED) VIAL ONE (06:52)
[2017-11-29 06:54] LABS: CALCIUM 8.7 MG/DL (8.5-10.1); CREATININE SERUM 4.98 MG/DL (0.60-1.30); POTASSIUM 4.4 MMOL/L (3.6-5.0)
[2017-11-29] MEDS ORDERED: SEVOFLURANE (ULTANE) 15 ML INHAL SOLN ONE ×5 (06:56→08:01)
[2017-11-29] MEDS ORDERED: ceFAZolin INJECTION 1,000 MG in NS (IVPB) 50 ML IV ONE (07:00)
[2017-11-29] MEDS ORDERED: ROCURONIUM 10 MG/ML 5 ML SYRINGE IV ONE (07:01)
[2017-11-29] MEDS ORDERED: morphine PF (DURAMORPH) 10 MG/10 ML AMP ONE (07:11)
[2017-11-29] MEDS ORDERED: BUPIVACAINE 0.25% 30 ML (SENSORCAINE) VIAL ONE (07:12)
[2017-11-29] MEDS ORDERED: HYDROcodone/APAP 7.5 MG/325 MG (LORTAB, LORCET PLUS) TABLET PO PRN (07:15)
--- NOTE | 2017-11-29 07:26 | Progress Note-Pre Operative ---
Pre-Operative Progress Note H&P Reviewed The H&P was reviewed, patient examined and no changes noted. Date Seen by Provider: Nov 29, 2017 Time Seen by Provider: 07:15 Date H&P Reviewed: Nov 29, 2017 Time H&P Reviewed: 07:15 Pre-Operative Diagnosis: left knee chondromalacia patella FARHAD EASTMAN MD Nov 29, 2017 07:26
--- NOTE | 2017-11-29 07:27 | Progress Note-Post Operative ---
Post-Operative Progess Note Surgeon (s)/Instrument Man (s) Surgeon FARHAD EASTMAN MD Instrument Man: vilma Celeste Pre-Operative Diagnosis left knee chondromalacia patella Post-Operative Diagnosis left knee chondromalacia patella and medial femoral condyle and medial meniscus tear Procedure & Operative Findings Date of Procedure 11/29/17 Procedure Performed/Findings left knee arthroscopic partial medial meniscectomy and chondroplasty of the patella and the medial femoral condyle Anesthesia Type GETA Estimated Blood Loss Estimated blood loss (mL): minimal Specimens/Packing Specimens Removed none Packing: none FARHAD EASTMAN MD Nov 29, 2017 07:27
[2017-11-29] MEDS ORDERED: NEOSTIGMINE 1 MG/ML 5 ML SYRINGE ONE (08:01)
[2017-11-29] MEDS ORDERED: GLYCOPYRROLATE 0.2 MG/ML (ROBINUL) 2 ML VIAL ONE ×2 (08:02)
[2017-11-29] MEDS ORDERED: HYDROmorphone 2 MG/ML VIAL (DILAUDID) ONE (08:12)
[2017-11-29] MEDS ORDERED: morphine INJ 10 MG/ML 1ML (SYR OR VIAL) ONE (08:13)
[2017-11-29] MEDS ORDERED: HYDROmorphone 2 MG/ML VIAL (DILAUDID) IV ONE (08:30)
[2017-11-29] MEDS ORDERED: ONDANSETRON 4 MG/2 ML (SDV) Z0FRAN IVP PRN (08:30)
[2017-11-29] MEDS ORDERED: HYDR-3816 PO (08:53)
[2017-11-29 09:15] VITALS: BP 150/80
--- NOTE | 2017-11-29 09:16 | OPERATIVE REPORT ---
DATE OF SERVICE: 11/29/2017 PREOPERATIVE DIAGNOSIS: Left knee chondromalacia of the patella. POSTOPERATIVE DIAGNOSES: 1. Left knee chondromalacia of the patella. 2. Left knee medial meniscus tear. 3. Left knee chondromalacia of the medial femoral condyle. PROCEDURES: 1. Left knee arthroscopic partial medial meniscectomy. 2. Left knee arthroscopic chondroplasty of the patella. 3. Left knee arthroscopic chondroplasty medial femoral condyle. SURGEON: Dudley Eastman MD. PAINT STRIPING MACHINE OPERATOR: Chirag Celeste, who assisted throughout the procedure and closed the incisions. ANESTHESIA: General endotracheal. TOURNIQUET TIME: Not applicable. ESTIMATED BLOOD LOSS: Minimal. DRAINS: None. COMPLICATIONS: None. POSTOPERATIVE PLAN: Routine protocol. DISPOSITION: The patient was transported to the recovery room awake and in stable condition. STATEMENT OF MEDICAL NECESSITY: The patient is a 47-year-old gentleman with complaints of left anterior medial knee pain, catching, locking and swelling. Pain with patellar loading with crepitus noted. He had a large effusion. He has failed to respond to conservative measures and due to functional impairment and failure to improve with the conservative measures, the patient elected to proceed with surgical intervention. Examination under anesthesia revealed range of motion of 0/0/135. The patient had negative Odilia, negative anterior and posterior drawer. No varus valgus laxity, negative pivot shift. ARTHROSCOPIC FINDINGS: The patella demonstrated grade II chondral flaps inferiorly in an 8 x 8 area of the trochlea demonstrated no gross chondral abnormalities. The medial and lateral gutters were clear. Lateral compartment demonstrated no meniscal or chondral pathology. The ACL and PCL were intact. The medial compartment demonstrated a grade III chondral flap on the central weightbearing portion of the femoral condyle in a 10 x 10 area. In addition, there was a complex tear of the posterior horn of the medial meniscus in approximately one half of the posterior horn. DESCRIPTION OF PROCEDURE: After risks and benefits of procedure were discussed and questions were answered and informed consent was signed and placed on the chart, the operative site was confirmed in the preoperative holding area initialed by the surgeon. The patient was then transported to the operating room and after adequate level of general endotracheal anesthetic was obtained, a timeout was called confirming the operative site. Examination under anesthesia was performed with the above findings noted. Left lower extremity was prepped and draped in the usual sterile fashion. The knee joint was injected with 60 mL of fluid. A standard inferolateral portal was placed with the arthroscope. Under direct visualization, inferior medial portal was created. The menisci and cruciates were carefully probed with the above findings noted. The unstable chondral flaps in the patella were debrided with a shaver back to a stable edge. The scope was then redirected into the medial compartment and then several chondral flaps in the medial femoral condyle were debrided with a shaver back to a stable edge. The posterior horn of the medial meniscus was then debrided with a biter and shaver removing approximately one half of the posterior horn. This was carefully probed with no further tearing or instability noted. The knee was copiously irrigated. The portal sites were closed with 4-0 nylon in a simple interrupted fashion. He was injected with Duramorph. Portal sites were infiltrated with plain Marcaine. A soft dressing was applied. The patient was then transferred to the recovery room awake and stable condition. Job ID: [id number] DocumentID: [id number] Dictated Date: 11/29/2017 08:16:04 Slab Inspector Date: 11/29/2017 09:16:07 Dictated By: DUDLEY EASTMAN MD
[2017-11-29 09:45] VITALS: BP 149/83
[2017-11-29 10:00] VITALS: BP 149/83
--- NOTE | 2017-11-29 10:44 | Anesthesia-General Post-Op ---
General Patient Condition Mental Status/LOC: Same as Preop Cardiovascular: Satisfactory Nausea/Vomiting: Absent Respiratory: Satisfactory Pain: Controlled Complications: Absent Post Op Complications Complications None Follow Up Care/Instructions Patient Instructions None needed. Anesthesia/Patient Condition Patient Condition Patient is doing well, no complaints, stable vital signs, no apparent adverse anesthesia problems. No complications reported per nursing. TYRA WEBB CRNA Nov 29, 2017 10:44
--- NOTE | 2017-11-29 11:00 | Physical Therapy Ortho Eval ---
PT Orthopedic Evaluation Type of Surgery Knee Scope Chrondromalasia L patella Prior Level of Function Current Living Status: Spouse Locomotion (Upon Admit): Independent Established Durable Medical Eq: Crutches Subjective Subjective Reports he has had his other knee scoped. Reports he has done the exercises and used crutches before. Agreeable to PT visit this date. Entry Into Home: Stairs With Railing Motor Control Motor Control: Motor Control WNL ROM ROM: WFL (except left knee 0-90 degrees) Strength Strength: WFL Transfer Transfers (B, C, W/C) (FIM): 5 (mod indep post treatment) Gait Gait Assistive Device: Crutches Right Lower Extremity: Right Weight Bearing Status RLE: Weight Bearing/Tolerated Left Lower Extremity: Left Weight Bearing Status LLE: Weight Bearing/Tolerated Gait (FIM): 5 (6 post treatment with crutches) Summary/Comments Safe gait with use of crutches and pt verbalized understanding of stair sequencing. Also instructed pt in use of 1 crutch and he voiced understanding. Pt was SBA with gait initially , but mod indep post treatment. Safe with use of crutches. Treatment Rendered Exercise Instruction: Quad Sets, Straight Leg Raise, Heel Slides Assessment/Goals Goal Time Frame: 1 Visit Understands HEP: Yes Safe Ambulation: Yes Plan Treatment Plan: Discharge PT/Family Agrees to Plan: Yes Time Time In: 950 Time Out: 1010 Total Billed Treatment Time: 20 Billed Treatment Time visit EVL 20 Yes PT/OT Therapy GCodes Therapy Functional Limitation: Physical Therapy Test(s)/Tool used to determine: Level of Assistance Scale Functional Limitation-Current Charge Code: MOBCUR Modifier: CJ Functional Limitation-Goal Charge Code: MOBGOAL Modifier: CI Functional Limitation-D/C Charge Codes: MOBDC Modifier: CI HAYLIE COSME PT Nov 29, 2017 11:00
== END 2017-11-29 10:25 | disposition home or self-care (01) ==
LOC: SDC 06:00
PROVIDERS: ATTEND Orthopaedic Surgery
DX: M22.42 Chondromalacia patellae, left knee (principal); M23.222 Derangement of posterior horn of medial meniscus due to old tear or injury, left knee; I10 Essential (primary) hypertension; E11.9 Type 2 diabetes mellitus without complications; J44.9 Chronic obstructive pulmonary disease, unspecified; E78.5 Hyperlipidemia, unspecified; K21.9 Gastro-esophageal reflux disease without esophagitis; Z85.118 Personal history of other malignant neoplasm of bronchus and lung; Z85.528 Personal history of other malignant neoplasm of kidney; Z79.4 Long term (current) use of insulin; Z79.899 Other long term (current) drug therapy; E66.01 Morbid (severe) obesity due to excess calories; Z68.42 Body mass index [BMI] 45.0-49.9, adult; Z99.2 Dependence on renal dialysis
CPT/HCPCS: 36415; 80048; 82962

== ENCOUNTER → 2018-01-05 | Outpatient (CLI) | payer MEDICARE, MEDICAID ==
[~2018-01-05] MED LIST changes: +HYDR-3816 PO
--- NOTE | 2018-01-05 09:02 | Diagnostic Imaging Report ---
PROCEDURE: US left lower extremity venous. TECHNIQUE: Multiple real-time grayscale images were obtained over the left lower extremity in various projections. Additional duplex Doppler and color Doppler images were also obtained. INDICATION: Left lower extremity edema and pain. FINDINGS: There is no evidence of a left lower extremity DVT. The left lower extremity deep venous system shows normal compressibility with normal response to augmentation and Valsalva. No fluid collection or mass is identified. IMPRESSION: No evidence of left lower extremity DVT. Dictated by: Dictated on workstation # [id number]
== END ==
LOC: RAD 07:51
PROVIDERS: ATTEND Internal Medicine Nephrology
DX: R60.0 Localized edema (principal)

== ENCOUNTER 2018-07-03 10:35 | Outpatient (RCR) | payer MEDICARE, MEDICAID ==
[~2018-07-03 10:35] MED LIST changes: -AMLO5TAB7 PO; +AMLO5TAB9 PO
== END 2018-07-16 15:21 | disposition home or self-care (01) ==
PROVIDERS: ATTEND Nurse Practitioner Community Health
DX: M62.81 Muscle weakness (generalized) (principal); I10 Essential (primary) hypertension; E11.9 Type 2 diabetes mellitus without complications; J45.909 Unspecified asthma, uncomplicated; K21.9 Gastro-esophageal reflux disease without esophagitis

== ENCOUNTER → 2018-07-14 | Outpatient (CLI) | payer MEDICARE, OTHER ==
--- NOTE | 2018-07-14 14:34 | Diagnostic Imaging Report ---
PROCEDURE: MRI left joint lower extremity without contrast. TECHNIQUE: Multiplanar, multisequence non contrast-enhanced MRI of the left lower extremity was accomplished. INDICATION: Pain and swelling. FINDINGS: The anterior cruciate and posterior cruciate ligaments are intact. Both the superficial and deep components of medial collateral ligament are intact. The biceps femoris, tibial collateral and iliotibial band are intact. The popliteus tendon is intact. There is degenerative maceration and a complex tear of the posterior horn of medial meniscus. There is some grade 4 chondromalacia with underlying marrow edema. The anterior horn of the medial meniscus is grossly intact. Lateral meniscus is normal in signal intensity and morphology. The quadriceps tendon and patellar tendons are intact. There is a hqoybnhf-ng-cwpxf knee joint effusion. The articular cartilage of the patella is relatively well-maintained. There is a well-circumscribed marrow lesion in the central aspect of the distal femur. There is some questionable chondroid matrix within this. There is otherwise some thinning of the articular cartilage in the lateral knee joint compartment. IMPRESSION: Moderate osteoarthritic change in the medial knee joint compartment with grade 4 chondromalacia along the medial femoral condyle with underlying marrow edema. There is also degenerative maceration and a complex tear of the posterior horn of the medial meniscus. Ibnjhwjf-jw-vyzde knee joint effusion. Well-circumscribed hyperintense marrow lesion in the distal aspect of the femur with questionable chondroid matrix. Further correlation with plain films is recommended. If this lesion is not being benign enchondroma, then further evaluation with gadolinium-enhanced MRI should be considered for further characterization. Dictated by: Dictated on workstation # [id number]
== END ==
LOC: RAD 12:59
PROVIDERS: ATTEND Nurse Practitioner Community Health
DX: M17.12 Unilateral primary osteoarthritis, left knee (principal); M94.262 Chondromalacia, left knee; M23.232 Derangement of other medial meniscus due to old tear or injury, left knee; M23.222 Derangement of posterior horn of medial meniscus due to old tear or injury, left knee; M89.9 Disorder of bone, unspecified
CPT/HCPCS: 73721

== ENCOUNTER → 2018-07-16 | Outpatient (CLI) | payer MEDICARE, OTHER ==
--- NOTE | 2018-07-17 09:20 | Diagnostic Imaging Report ---
PROCEDURE: CT chest, abdomen, and pelvis without contrast. TECHNIQUE: Multiple contiguous axial images were obtained through the chest, abdomen, and pelvis without the use of intravenous contrast. Auto Exposure Controls were utilized during the CT exam to meet ALARA standards for radiation dose reduction. INDICATION: Renal cell carcinoma. FINDINGS: The previous CT chest, abdomen and pelvis exam of 11/16/2017 noted a 4 MM nodule in the right midlung. That finding is again evident and no different. However, in the interval since the previous study, multiple pulmonary nodules have developed in both lungs. The largest of these nodules is a pleural-based mass along the periphery of the left lower lobe. This measures 1.7 x 2.2 CM. These nodules should be considered neoplastic until proven otherwise. The lungs are otherwise clear. The vague area of increased density in the left upper lung seen previously has resolved. The heart size is stable. The aorta is not abnormally dilated. The small mediastinal nodes seen previously are again evident. The previous study also noted a 3.2 x 4.5 CM exophytic mass along the lateral aspect of the right kidney. In the interval since the prior exam, the patient has undergone a right nephrectomy. There is no evidence for recurrent mass in the right middle fossa. The left kidney is unremarkable. The prior exam also noted a 3.6 x 5.3 CM poorly defined mass along the umbilical hernia on the right. This mass now measures 5.2 x 6.8 CM. The edema/inflammation of the subcutaneous fat and thickening of the skin in this area seen previously has resolved, however. The overall appearance of the abdomen and pelvis has not changed significantly otherwise. The bone windows show no evidence for fracture or for destructive lesion. There does appear to be bilateral gynecomastia. IMPRESSION: 1. In the interval since the prior exam, the patient has undergone a right nephrectomy. There is no sign of a mass in the right renal fossa to suggest recurrent neoplasm. 2. Multiple pulmonary nodules have developed since the prior study. These should be considered neoplastic until proven otherwise. The poorly defined mass adjacent to the umbilical hernia on the right seen previously also measure somewhat larger. 3. The edema/inflammation of the subcutaneous fat and the skin thickening of the right midabdomen seen previously has resolved. Dictated by: Dictated on workstation # [id number]
== END ==
LOC: RAD 15:57
PROVIDERS: ATTEND Internal Medicine Hematology & Oncology
DX: C64.1 Malignant neoplasm of right kidney, except renal pelvis (principal); C78.00 Secondary malignant neoplasm of unspecified lung; K42.9 Umbilical hernia without obstruction or gangrene; R91.8 Other nonspecific abnormal finding of lung field; Z90.5 Acquired absence of kidney
CPT/HCPCS: 71250; 74176

== ENCOUNTER 2018-09-14 12:59 | Outpatient (RCR) | payer MEDICARE, OTHER ==
[~2018-09-14] VITALS: Ht 175.3 cm; Wt 141.5 kg
[2018-09-14] MEDS: DAPTOMYCIN IV SCH (14:16)
[2018-09-14] MEDS: NS IV SCH (14:16)
[2018-09-14 14:17] VITALS: BP 157/84
[2018-09-16 09:09] VITALS: BP 153/72
[2018-09-16] MEDS: NS IV SCH (09:51)
[2018-09-16] MEDS: DAPTOMYCIN IV SCH (09:51)
[2018-12-04] MEDS ORDERED: DOXY100T2 PO (01:18)
[2018-12-04] MEDS ORDERED: ACHD5005 PO (01:18)
[2018-12-12] MEDS ORDERED: VALA1000 PO (21:30)
[2018-12-12] MEDS ORDERED: CAPS42.513 TP (21:30)
[2018-12-12] MEDS ORDERED: GABA-488 PO (21:30)
== END 2018-12-13 | disposition home or self-care (01) ==
LOC: SDC 12:59
PROVIDERS: ATTEND Student in an Organized Health Care Education/Training Program
DX: C64.1 Malignant neoplasm of right kidney, except renal pelvis (principal)
CPT/HCPCS: 96365; 99211

== ENCOUNTER 2018-10-08 08:02 | Emergency (ER) | payer MEDICARE, OTHER ==
[~2018-10-08] VITALS: Ht 177.8 cm; Wt 125.6 kg
[2018-10-08] MEDS ORDERED: meTOprolol TARTRATE 50 MG (LOPRESSOR) TAB PO ONE (08:30)
[2018-10-08] MEDS ORDERED: cloNIDine 0.2 MG (CATAPRES) TAB PO ONE (08:30)
[2018-10-08 08:35] LABS: BASOPHILS # (AUTO) 0.1 10^3/uL (0.0-0.1); BASOPHILS % (AUTO) 2 % (0-10); EOSINOPHILS # (AUTO) 0.5 10^3/uL (0.0-0.3); EOSINOPHILS % (AUTO) 8 % (0-10); HEMATOCRIT 34 % (40-54); LYMPHOCYTES # (AUTO) 1.8 X 10^3 (1.0-4.0); LYMPHOCYTES % (AUTO) 30 % (12-44); MEAN CORPUSCULAR HEMOGLOBIN 27 PG (25-34); MEAN CORPUSCULAR HGB CONC 33 G/DL (32-36); MEAN CORPUSCULAR VOLUME 84 FL (80-99); MEAN PLATELET VOLUME 10.9 FL (7.4-10.4); MONOCYTES # (AUTO) 0.6 X 10^3 (0.0-1.0); MONOCYTES % (AUTO) 10 % (0-12); NEUTROPHILS # (AUTO) 3.2 X 10^3 (1.8-7.8); NEUTROPHILS % (AUTO) 52 % (42-75); PLATELET COUNT 244 10^3/uL (130-400); RED CELL DISTRIBUTION WIDTH 14.4 % (10.0-14.5); WHITE BLOOD COUNT 6.1 10^3/uL (4.3-11.0)
[2018-10-08 08:46] LABS: INR 1.1 (0.8-1.4); PROTHROMBIN TIME PATIENT 14.8 SEC (12.2-14.7)
--- NOTE | 2018-10-08 08:51 | ED General ---
General Chief Complaint: General Problems/Pain Stated Complaint: LUMP R SIDE BACK/L RIB PAIN Source of Information: Patient Exam Limitations: No Limitations History of Present Illness Date Seen by Provider: Oct 08, 2018 Time Seen by Provider: 08:15 Initial Comments Here with report of left lower chest pain and a lump on his back on the right side posterior at the lower rib margin. Does have history of kidney cancer with nephrectomy. He does have metastasis to the lungs. Currently on chemotherapy. He is also on dialysis at home using hemodialysis Monday through Monday. He is due to have that today. He woke up this morning with the pain that is worse and presented to the ER for further evaluation. He has not had his home blood pressure medicines yet. Timing/Duration: 1-2 Days, Getting Worse Severity: Moderate Modifying Factors: improves with Other (pain worse with deep breathing) Associated Systoms: Chest Pain; No Cough; Fever/Chills; No Nausea/Vomiting; Shortness of Air, Weakness Allergies and Home Medications Allergies Coded Allergies: fluticasone (Verified Allergy, Unknown, asthma attack, 11/23/17) salmeterol (Verified Allergy, Unknown, asthma attack, 11/23/17) Home Medications Albuterol Sulfate 6.7 Gm Hfa.aer.ad, 2 PUFF IH QID PRN for SHORTNESS OF BREATH, (Reported) Albuterol Sulfate 2.5 Mg/3 Ml Vial.neb, 2.5 MG IH QID PRN for WHEEZING, (Reported) Amlodipine Besylate 5 Mg Tablet, 5 MG PO DAILY, (Reported) Aspirin 81 Mg Tab.chew, 81 MG PO HS, (Reported) Calcitriol 0.5 Mcg Capsule, 0.5 MCG PO DAILY, (Reported) Cinacalcet HCl 30 Mg Tablet, 30 MG PO DAILY@1800, (Reported) Clonidine HCl 0.1 Mg Tablet, 0.1 MG PO TID, (Reported) take this dose during week off of sutent Clonidine HCl 0.2 Mg Tablet, 0.2 MG PO TID, (Reported) take this dose during sutent treatment Famotidine 20 Mg Tablet, 20 MG PO BID, (Reported) Fluticasone/Vilanterol 1 Each Blst.w.dev, 1 EACH IH DAILY, (Reported) Furosemide 80 Mg Tablet, 160 MG PO DAILY, (Reported) take 2 (80mg) tabs Furosemide 80 Mg Tablet, 80 MG PO DAILY@1200, (Reported) Glimepiride 1 Mg Tablet, 0.5 MG PO DAILY, (Reported) Glimepiride 2 Mg Tablet, 2 MG PO DAILY, (Reported) Hydrocodone/Acetaminophen 1 Each Tablet, 1 EACH PO Q4H PRN for PAIN-MODERATE Prescribed by: CEE ROSENBERG on 11/29/17 0853 Insulin Aspart 300 Units/3 Ml Solution, 15-30 UNITS SQ AC, (Reported) sliding scale Insulin Glargine,Hum.rec.anlog 300 Unit/1 Ml Insuln.pen, 25 UNIT SQ DAILY, (Reported) Ipratropium/Albuterol Sulfate 3 Ml Ampul.neb, 3 ML IH QID PRN for SHORTNESS OF BREATH, (Reported) Metoprolol Tartrate 100 Mg Tablet, 100 MG PO BID, (Reported) Minoxidil 10 Mg Tab, 20 MG PO BID, (Reported) take 2 (10mg) tabs Montelukast Sodium 10 Mg Tablet, 10 MG PO HS, (Reported) Oxycodone HCl 30 Mg Tablet, 30 MG PO Q6H PRN for PAIN-MILD TO MODERATE, (Reported) Spironolactone 50 Mg Tablet, 50 MG PO DAILY@1200, (Reported) Sunitinib Malate 50 Mg Capsule, 50 MG PO DAILY, (Reported) take for 2 weeks then hold for 1 week then repeat Temazepam 30 Mg Capsule, 30 MG PO HS, (Reported) Patient Home Medication List Home Medication List Reviewed: Yes Review of Systems Review of Systems Constitutional: see HPI; No chills; fever, weakness EENTM: no symptoms reported Respiratory: cough, short of breath Cardiovascular: chest pain; No edema, No palpitations Gastrointestinal: No abdominal pain, No nausea, No vomiting Genitourinary: no symptoms reported Musculoskeletal: back pain, muscle pain Skin: No change in color; lesions; No rash Psychiatric/Neurological: No Symptoms Reported All Other Systems Reviewed Negative Unless Noted: Yes Past Ztophxx-Xzzcsn-Wlwflo Hx Past Med/Social Hx: Reviewed Nursing Past Med/Soc Hx Patient Social History Alcohol Use: Denies Use Recreational Drug Use: No Smoking Status: Never a Smoker Recent Foreign Travel: No Contact w/Someone Who Travel: No Recent Hopitalizations: No Immunizations Up To Date Tetanus Booster (TDap): Unknown PED Vaccines UTD: No Date of Pneumonia Vaccine: Nov 07, 2015 Date of Influenza Vaccine: Nov 06, 2017 Seasonal Allergies Seasonal Allergies: Yes Past Medical History Surgeries: Yes (HERNIA REPAIR, MENISCUS REPAIR) Abdominal, Orthopedic Respiratory: Yes (ASTHMA, STABLE LUNG MASS, POSSIBLE NEW NODULE RIGHT LOWER LOBE) Asthma, Sleep Apnea Currently Using CPAP: Yes Currently Using BIPAP: No Cardiac: Yes High Cholesterol, Hypertension Neurological: Yes Headaches /Migraines Reproductive Disorders: No Sexually Transmitted Disease: No HIV/AIDS: No Renal Failure Gastrointestinal: Yes (TAKES PEPCID NEEDED) Gastroesophageal Reflux Musculoskeletal: Yes (MENISCUS TEAR RIGHT KNEE) Arthritis, Chronic Back Pain Endocrine: Yes (STARTED DIALYSIS IN NOVEMBER 2015) Diabetes, Insulin dep Loss of Vision: Bilateral Hearing Impairment: Denies Cancer: Yes (PATIENT BEING MONITORED BY DR. LINDER FOR LUNG AND RENAL MASSES) Psychosocial: No Integumentary: No Blood Disorders: Yes (ANEMIA) Adverse Reaction/Blood Tranf: No (N/A) Family Medical History Reviewed Nursing Family Hx Arthritis 19 MOTHER (grandmother) Asthma 19 MOTHER (grandmother) Cancer of mouth 19 MOTHER (throat) Hypertension 19 MOTHER (grandmother) Respiratory disorder 19 MOTHER (grandmother) Seizure disorder 19 MOTHER (aunt) Thyroid disease 19 MOTHER (aunt) No Family History of: AIDS Abdominal aortic aneurysm [place]'s disease Alcoholism Alzheimer's disease Cardiovascular disease Cataracts Colon cancer Completed stroke Congenital disease Congenital heart disease Coronary thrombosis Cystic fibrosis Deafness or hearing loss Dementia Diabetes mellitus Drug abuse Dysphasia Fibrocystic disease of breast Gastroenteritis Glaucoma Headache disorder Hypercholesterolemia Infertility Kidney disease Myocardial infarction Neoplasm Osteoporosis Parkinson's disease Severe allergy Tuberculosis Visual disorder Physical Exam-Suspected Sepsis Physical Exam Vital Signs Vital Signs - First Documented 10/08/18 08:07 Temp 99.5 Pulse 87 Resp 18 B/P (MAP) 197/100 (132) Pulse Ox 97 O2 Delivery Room Air Capillary Refill : Height, Weight, BMI Height: 5'9.00" Weight: 312lbs. 0.0oz. 141.440152zr; 46.1 BMI Method:Stated General Appearance: No Apparent Distress, WD/WN HEENT: PERRL/EOMI, Pharynx Normal Neck: Non Tender, Supple Respiratory: Lungs Clear, Normal Breath Sounds Cardiovascular: Regular Rate, Rhythm, No Murmur Gastrointestinal: Non Tender, Soft Back: Normal Inspection, No CVA Tenderness, No Vertebral Tenderness, Other (4 x 4 centimeter area of mass under scan right lower posterior rib margin.) Extremity: Normal Range of Motion, Non Tender Neurologic/Psychiatric: Alert, Oriented x3 Skin: normal color, warm/dry, other (dialysis catheter right upper chest wall) Focused Exam Lactate Level 10/08/18 08:20: Lactic Acid Level 0.78 Lactic Acid Level Laboratory Tests Test 10/08/18 08:20 Lactic Acid Level 0.78 MMOL/L (0.50-2.00) Progress/Results/Core Measures Suspected Sepsis SIRS Temperature: Pulse: Respiratory Rate: Laboratory Tests 10/08/18 08:20: White Blood Count 6.1 Blood Pressure / Mean: 10/08/18 08:20: Lactic Acid Level 0.78 Laboratory Tests 10/08/18 08:20: Creatinine 11.22H, INR Comment 1.1, Platelet Count 244, Total Bilirubin 0.6 Results/Orders Lab Results Laboratory Tests Test 10/08/18 08:20 Range/Units White Blood Count 6.1 4.3-11.0 10^3/uL Red Blood Count 4.01 L 4.35-5.85 10^6/uL Hemoglobin 11.0 L 13.3-17.7 G/DL Hematocrit 34 L 40-54 % Mean Corpuscular Volume 84 80-99 FL Mean Corpuscular Hemoglobin 27 25-34 PG Mean Corpuscular Hemoglobin Concent 33 32-36 G/DL Red Cell Distribution Width 14.4 10.0-14.5 % Platelet Count 244 130-400 10^3/uL Mean Platelet Volume 10.9 H 7.4-10.4 FL Neutrophils (%) (Auto) 52 42-75 % Lymphocytes (%) (Auto) 30 12-44 % Monocytes (%) (Auto) 10 0-12 % Eosinophils (%) (Auto) 8 0-10 % Basophils (%) (Auto) 2 0-10 % Neutrophils # (Auto) 3.2 1.8-7.8 X 10^3 Lymphocytes # (Auto) 1.8 1.0-4.0 X 10^3 Monocytes # (Auto) 0.6 0.0-1.0 X 10^3 Eosinophils # (Auto) 0.5 H 0.0-0.3 10^3/uL Basophils # (Auto) 0.1 0.0-0.1 10^3/uL Prothrombin Time 14.8 H 12.2-14.7 SEC INR Comment 1.1 0.8-1.4 Activated Partial Thromboplast Time 33 24-35 SEC Sodium Level 140 135-145 MMOL/L Potassium Level 4.0 3.6-5.0 MMOL/L Chloride Level 103 98-107 MMOL/L Carbon Dioxide Level 24 21-32 MMOL/L Anion Gap 13 5-14 MMOL/L Blood Urea Nitrogen 53 H 7-18 MG/DL Creatinine 11.22 H 0.60-1.30 MG/DL Estimat Glomerular Filtration Rate 6 BUN/Creatinine Ratio 5 Glucose Level 121 H 70-105 MG/DL Lactic Acid Level 0.78 0.50-2.00 MMOL/L Calcium Level 8.8 8.5-10.1 MG/DL Corrected Calcium 8.9 8.5-10.1 MG/DL Total Bilirubin 0.6 0.1-1.0 MG/DL Aspartate Amino Transf (AST/SGOT) 14 5-34 U/L Alanine Aminotransferase (ALT/SGPT) 11 0-55 U/L Alkaline Phosphatase 81 40-136 U/L Total Protein 7.0 6.4-8.2 GM/DL Albumin 3.9 3.2-4.5 GM/DL My Orders Orders - NAEL CHAN MD Cbc With Automated Diff (10/08/18 08:19) Comprehensive Metabolic Panel (10/08/18 08:19) Blood Culture (10/08/18 08:19) Sputum Culture (10/08/18 08:19) Urinalysis (10/08/18 08:19) Urine Culture (10/08/18 08:19) Protime With Inr (10/08/18 08:19) Partial Thromboplastin Time (10/08/18 08:19) Chest 1 View, Ap/Pa Only (10/08/18 08:19) Ed Iv/Invasive Line Start (10/08/18 08:19) Vital Signs Adult Sepsis Patie Q15M (10/08/18 08:19) O2 (10/08/18 08:19) Remove Rings In Anticipation O (10/08/18 08:19) Lactic Acid Analyzer (10/08/18 08:19) Metoprolol Tartrate (Ir) Tab (Lopressor (10/08/18 08:30) Clonidine Tablet (Catapres Tablet) (10/08/18 08:30) Ct Chest Wo (10/08/18 09:14) Medications Given in ED Current Medications Medications Dose Ordered Sig/Hina Route Start Time Stop Time Status Last Admin Dose Admin Clonidine HCl 0.2 mg ONCE ONCE PO 10/08/18 08:30 10/08/18 08:31 DC 10/08/18 09:12 0.2 MG Metoprolol Tartrate 100 mg ONCE ONCE PO 10/08/18 08:30 10/08/18 08:31 DC 10/08/18 09:13 100 MG Vital Signs/I&O 10/08/18 08:07 Temp 99.5 Pulse 87 Resp 18 B/P (MAP) 197/100 (132) Pulse Ox 97 O2 Delivery Room Air Capillary Refill : Progress Note : Progress Note Seen and evaluated. IV, labs, cultures and lactic acid ordered. Chest x-ray ordered. Monitor patient. We did give metoprolol 100 mg by mouth as well as clonidine 0.2 mg by mouth for hypertension and he has not had his home morning meds which are the same as those given. 1159: Overall improved with pain resolved. Blood pressure is improved and in normal range. CT results noted and discussed with patient and family including concerns for metastatic disease. Moderate pleural effusion noted and this is likely part of his pain as well as the mass in the left lower lung that is at the pleural border. Serum creatinine is quite elevated but he is due dialysis and has hemodialysis at home. We discussed options including transfer and going home and patient would like to go home and follow-up with his oncologist and sterile proc tech. This seems reasonable given his current situation. We did discuss risk and benefits and patient verbalize understanding but would still like to go home. Discharged home with return precautions. Patient verbalize understanding instructions and agreement with plan. Diagnostic Imaging Diagonstic Imaging: Xray Plain Films/CT/US/NM/MRI: chest Comments [facility] [place], [place] NAME: CYNDEE BRITO MED REC#: [id number] PT STATUS: REG ER : 1970 PHYSICIAN: NAEL CHAN MD ADMIT DATE: 10/08/18/ER Draft Date of Exam:10/08/18 CHEST 1 VIEW, AP/PA ONLY INDICATION: Left rib pain. Comparison with CT chest of 07/16/2018. FINDINGS: There is moderate left pleural effusion. Pulmonary nodule noted in the left midlung measuring approximately 2 cm. No definite masses are seen in the right lung at this time. There is cardiomegaly. Double-lumen catheter present on the right in good position. No bony abnormalities. IMPRESSION: 1. Developing left pleural effusion with left pulmonary nodule measuring approximately 2 cm. 2. Dialysis catheter on the right in good position. Dictated on workstation # [id number] Dict: 10/08/18921 Trans: 10/08/18925 LUZ [id number] Interpreted by: FRANCINE PHILLIPS MD Electronically signed by: Loligonsjesús Imaging: CT Plain Films/CT/US/NM/MRI: abdomen, pelvis Comments NAME: CYNDEE BRITO MED REC#: [id number] PT STATUS: REG ER : 1970 PHYSICIAN: NAEL CHAN MD ADMIT DATE: 10/08/18/ER Draft Date of Exam:10/08/18 CT CHEST WO PROCEDURE: CT chest without contrast. TECHNIQUE: Multiple contiguous axial images were obtained through the chest without the use of intravenous contrast. Auto Exposure Controls were utilized during the CT exam to meet ALARA standards for radiation dose reduction. INDICATION: Left rib pain. History of renal cancer. Comparison with 07/16/2018. FINDINGS: There has been development of moderate left pleural effusion. There is a soft tissue mass in the left lower lung which has developed measuring approximately 4.5 cm. This does abut the visceral pleura. There is a soft tissue nodule in the right middle lobe measuring 1.4 cm. This previously measured 1 cm. There are additional nodules present in the right and left upper lobe anteriorly both measuring approximately 1.6 cm. There are no destructive bony lesions demonstrated. There is moderate pericardial effusion. IMPRESSION: 1. Development of moderate left pleural effusion. 2. Multiple pulmonary nodules have developed since previous exam with largest being pleural-based laterally in the left lower lung measuring approximately 4.5 cm. These are consistent with metastatic disease. 3. No destructive bony changes are seen. 4. Moderate pericardial effusion. Dictated on workstation # [id number] Dict: 10/08/18 1002 Trans: 10/08/18 1015 KB [id number] Interpreted by: FRANCINE PHILLIPS MD Electronically signed by: Departure Impression Primary Impression: Pleural effusion, left Additional Impressions: Renal cancer Qualified Codes: C64.1 - Malignant neoplasm of right kidney, except renal pelvis Metastatic cancer to lung Qualified Codes: C78.00 - Secondary malignant neoplasm of unspecified lung Disposition: HOME, SELF-CARE Condition: Stable Departure-Patient Inst. Decision time for Depature: 12:02 Referrals: [facility] (PCP) Primary Care Physician GALE SOLIZ (Family) Primary Care Physician Patient Instructions: End Stage Kidney Disease (DC), Pleural Effusion (DC) Add. Discharge Instructions: All discharge instructions reviewed with patient and/or family. Voiced understanding. You need to make follow-up with ear cancer doctor and your kidney doctor this week for recheck and further evaluation and to discuss the fluid in your left lung. This may ultimately need to be drained, especially if it causes breathing problems or increasing pain. You need to have your dialysis. Your creatinine today was 11.2. Please compare this to your values at home and discussed this with your kidney doctor as well. Return for worse pain, fever, vomiting, weakness, breathing problems or other concerns as needed. NAEL CHAN MD Oct 08, 2018 08:51
[2018-10-08 08:53] LABS: ALBUMIN 3.9 GM/DL (3.2-4.5); BILIRUBIN,TOTAL 0.6 MG/DL (0.1-1.0); CALCIUM 8.8 MG/DL (8.5-10.1); CREATININE SERUM 11.22 MG/DL (0.60-1.30)
--- NOTE | 2018-10-08 09:26 | Diagnostic Imaging Report ---
INDICATION: Left rib pain. Comparison with CT chest of 07/16/2018. FINDINGS: There is moderate left pleural effusion. Pulmonary nodule noted in the left midlung measuring approximately 2 cm. No definite masses are seen in the right lung at this time. There is cardiomegaly. Double-lumen catheter present on the right in good position. No bony abnormalities. IMPRESSION: 1. Developing left pleural effusion with left pulmonary nodule measuring approximately 2 cm. 2. Dialysis catheter on the right in good position. Dictated by: Dictated on workstation # [id number]
--- NOTE | 2018-10-08 09:28 | NUR ---
TO CT PER W/C
--- NOTE | 2018-10-08 10:15 | Diagnostic Imaging Report ---
PROCEDURE: CT chest without contrast. TECHNIQUE: Multiple contiguous axial images were obtained through the chest without the use of intravenous contrast. Auto Exposure Controls were utilized during the CT exam to meet ALARA standards for radiation dose reduction. INDICATION: Left rib pain. History of renal cancer. Comparison with 07/16/2018. FINDINGS: There has been development of moderate left pleural effusion. There is a soft tissue mass in the left lower lung which has developed measuring approximately 4.5 cm. This does abut the visceral pleura. There is a soft tissue nodule in the right middle lobe measuring 1.4 cm. This previously measured 1 cm. There are additional nodules present in the right and left upper lobe anteriorly both measuring approximately 1.6 cm. There are no destructive bony lesions demonstrated. There is moderate pericardial effusion. IMPRESSION: 1. Development of moderate left pleural effusion. 2. Multiple pulmonary nodules have developed since previous exam with largest being pleural-based laterally in the left lower lung measuring approximately 4.5 cm. These are consistent with metastatic disease. 3. No destructive bony changes are seen. 4. Moderate pericardial effusion. Dictated by: Dictated on workstation # [id number]
--- NOTE | 2018-10-08 11:25 | NUR ---
UNABLE TO GIVE UA REPORS THAT HE WENT BEFORE HE LEFT HOME AND THAT [facility] HE MAKE MINMIAL URINE.
[2018-10-08 12:18] VITALS: BP 169/97
== END 2018-10-08 12:18 | disposition home or self-care (01) ==
LOC: EDUNIT# 08:02 → ER 08:04
DX: J90 Pleural effusion, not elsewhere classified (principal); C64.1 Malignant neoplasm of right kidney, except renal pelvis; C78.00 Secondary malignant neoplasm of unspecified lung; J45.909 Unspecified asthma, uncomplicated; G47.30 Sleep apnea, unspecified; I10 Essential (primary) hypertension; E78.00 Pure hypercholesterolemia, unspecified; G43.909 Migraine, unspecified, not intractable, without status migrainosus; K21.9 Gastro-esophageal reflux disease without esophagitis; E11.9 Type 2 diabetes mellitus without complications; Z99.2 Dependence on renal dialysis; Z88.8 Allergy status to other drugs, medicaments and biological substances; Z79.82 Long term (current) use of aspirin; Z79.4 Long term (current) use of insulin; Z98.890 Other specified postprocedural states; Z80.8 Family history of malignant neoplasm of other organs or systems; Z82.49 Family history of ischemic heart disease and other diseases of the circulatory system
CPT/HCPCS: 36415; 71045; 71250; 80053; 83605; 85025; 85610; 85730; 87040

== ENCOUNTER → 2018-10-18 | Outpatient (CLI) | payer MEDICARE, MEDICAID ==
--- NOTE | 2018-10-18 10:02 | Diagnostic Imaging Report ---
PROCEDURE: CT chest, abdomen, and pelvis without contrast. TECHNIQUE: Multiple contiguous axial images were obtained through the chest, abdomen, and pelvis without the use of intravenous contrast. Auto Exposure Controls were utilized during the CT exam to meet ALARA standards for radiation dose reduction. INDICATION: Renal cell carcinoma with metastases to the lung, followup. COMPARISON: Comparison is made with recent CT chest from 10/08/[address] of the abdomen and pelvis from 07/16/2018. CT CHEST: Right chest wall catheter has the tip at the SVC right atrial junction. No axillary lymphadenopathy is detected. Hilar and mediastinal evaluation is somewhat limited due to absence of intravenous contrast. There is a moderate amount of pericardial fluid. Moderate left pleural effusion persists. No right-sided pleural fluid is seen. Right middle lobe nodule is approximately 12 mm compared with 14 mm on prior study. Nodule seen in the left upper lobe on prior study is not appreciated on today's study. Patient has developed significant consolidation with air bronchograms and a portion of the posterior left upper lobe and lingula as well as the left lower lobe. This has increased since prior. This does obscure previously described pleural-based soft tissue mass in the left lower lobe. No new pulmonary masses are seen. No destructive bony lesion is seen. IMPRESSION: 1. Moderate-sized left pleural effusion, similar to study 10 days earlier. There has been an increase in the degree of parenchymal consolidation in the left upper and left lower lobe since prior exam. Pulmonary nodules consistent with metastatic disease are again noted, similar to perhaps slightly smaller when compared with prior. Previously noted left upper lobe nodule is not well seen on today's study but may be obscured by consolidated lung. CT ABDOMEN AND PELVIS: No discrete liver mass is identified. Gallbladder is unremarkable. No biliary duct dilatation is seen. The pancreas and spleen are unremarkable. The right kidney is surgically absent. No definite residual or recurrent mass in the right renal fossa is identified. The left kidney is unremarkable. Aorta is nonaneurysmal. No definite central retroperitoneal or mesenteric lymphadenopathy is seen. The small and large bowel loops are normal in caliber. There is no obstruction. There is no ascites. Bladder is decompressed. No definite pelvic lymphadenopathy is seen. The area of soft tissue and fat in the midline subcutaneous tissues in the region of the ventral hernia is again noted. This measures approximately 4.8 x 6.1 cm compared with 5.2 x 6.8 cm. No definite osteolytic or blastic lesion is seen. IMPRESSION: Stable CT of the abdomen and pelvis since prior study from 07/16/2018. Patient is status post right nephrectomy. No residual or recurrent renal mass is identified. No definite abdominal or pelvic lymphadenopathy is detected. Dictated by: Dictated on workstation # [id number]
== END ==
LOC: RAD 09:13
PROVIDERS: ATTEND Internal Medicine Hematology & Oncology
DX: Z51.11 Encounter for antineoplastic chemotherapy (principal); C64.1 Malignant neoplasm of right kidney, except renal pelvis; J90 Pleural effusion, not elsewhere classified; J18.1 Lobar pneumonia, unspecified organism; R91.8 Other nonspecific abnormal finding of lung field; Z90.5 Acquired absence of kidney
CPT/HCPCS: 71250; 74176

== ENCOUNTER 2018-12-03 21:58 | Emergency (ER) | payer MEDICARE, MEDICAID ==
[~2018-12-03] VITALS: Ht 177.8 cm; Wt 125.7 kg
[2018-12-03 22:42] LABS: BASOPHILS # (AUTO) 0.1 10^3/uL (0.0-0.1); BASOPHILS % (AUTO) 1 % (0-10); EOSINOPHILS # (AUTO) 0.6 10^3/uL (0.0-0.3); EOSINOPHILS % (AUTO) 7 % (0-10); HEMATOCRIT 27 % (40-54); HEMOGLOBIN 8.6 G/DL (13.3-17.7); LYMPHOCYTES # (AUTO) 1.2 X 10^3 (1.0-4.0); LYMPHOCYTES % (AUTO) 15 % (12-44); MEAN CORPUSCULAR HEMOGLOBIN 27 PG (25-34); MEAN CORPUSCULAR HGB CONC 32 G/DL (32-36); MEAN CORPUSCULAR VOLUME 86 FL (80-99); MEAN PLATELET VOLUME 11.5 FL (7.4-10.4); MONOCYTES # (AUTO) 0.5 X 10^3 (0.0-1.0); MONOCYTES % (AUTO) 7 % (0-12); NEUTROPHILS # (AUTO) 5.6 X 10^3 (1.8-7.8); NEUTROPHILS % (AUTO) 71 % (42-75); PLATELET COUNT 232 10^3/uL (130-400); RED CELL DISTRIBUTION WIDTH 15.8 % (10.0-14.5)
[2018-12-03] MEDS ORDERED: fentaNYL INJECTION 100 MCG/2 ML AMP IVP ONE (22:45)
[2018-12-03 22:50] LABS: BILIRUBIN,TOTAL 0.5 MG/DL (0.1-1.0); CALCIUM 8.9 MG/DL (8.5-10.1); CREATININE SERUM 13.99 MG/DL (0.60-1.30); POTASSIUM 4.9 MMOL/L (3.6-5.0); TOTAL PROTEIN 7.1 GM/DL (6.4-8.2)
[2018-12-03 23:45] LABS: BILIRUBIN,URINE NEGATIVE (NEGATIVE); CLARITY,URINE CLEAR; COLOR,URINE YELLOW; GLUCOSE, URINE (UA) 2+ (NEGATIVE); KETONES,URINE NEGATIVE (NEGATIVE); LEUKOCYTE ESTERASE ,URINE NEGATIVE (NEGATIVE); NITRITE,URINE NEGATIVE (NEGATIVE); PH,URINE 6 (5-9); PROTEIN,URINE 4+ (NEGATIVE)
[2018-12-03 23:54] LABS: AMORPHOUS SEDIMENT,UR FEW AMOR URATES /LPF; BACTERIA,URINE TRACE /HPF
--- NOTE | 2018-12-04 00:43 | NUR ---
Report given to NADIA Wang to assume care of pt @ this time.
[2018-12-04] MEDS ORDERED: DOXYCYCLINE 100 MG (VIBRAMYCIN) TABLET PO ONE (01:15)
[2018-12-04] MEDS ORDERED: HYDROcodone/APAP 5 MG/325 MG (LORTAB) TAB PO ONE (01:15)
[2018-12-04] MEDS ORDERED: ACHD5005 PO (01:18)
[2018-12-04] MEDS ORDERED: DOXY100T2 PO (01:18)
--- NOTE | 2018-12-04 01:19 | ED General ---
General Chief Complaint: Back Problems Stated Complaint: BACK PAIN Nursing Triage Note: Pt amb to room #4 with c/o Rt flank discomfort. Pt reports flank pain began this afternoon. Tender upon light palpation. Pt states, "It hurts so bad, it takes my breath away." Reports hx stage 4 renal cancer. Reports to take home dialysis 5x wkly (pt chooses days). Pt reports he has not taken dialysis since Monday (12/01/18). Denies difficulty with urination. Nursing Sepsis Screen: No Definite Risk Source of Information: Patient Exam Limitations: No Limitations History of Present Illness Date Seen by Provider: Dec 03, 2018 Time Seen by Provider: 22:25 Initial Comments This 48 year old gentleman presents to the ER with complaints of intense pain along the right posterior costal margin that started this afternoon. He denies any associated symptoms. He denies fever or cough. There are no rashes. Patient does home hemodialysis. He has history of right nephrectomy for treatment of renal cell carcinoma. He is also receiving chemotherapy. Allergies and Home Medications Allergies Coded Allergies: fluticasone (Verified Allergy, Unknown, asthma attack, 11/23/17) salmeterol (Verified Allergy, Unknown, asthma attack, 11/23/17) Home Medications Albuterol Sulfate 6.7 Gm Hfa.aer.ad, 2 PUFF IH QID PRN for SHORTNESS OF BREATH, (Reported) Albuterol Sulfate 2.5 Mg/3 Ml Vial.neb, 2.5 MG IH QID PRN for WHEEZING, (Reported) Amlodipine Besylate 5 Mg Tablet, 5 MG PO DAILY, (Reported) Aspirin 81 Mg Tab.chew, 81 MG PO HS, (Reported) Calcitriol 0.5 Mcg Capsule, 0.5 MCG PO DAILY, (Reported) Cinacalcet HCl 30 Mg Tablet, 30 MG PO DAILY@1800, (Reported) Clonidine HCl 0.1 Mg Tablet, 0.1 MG PO TID, (Reported) take this dose during week off of sutent Clonidine HCl 0.2 Mg Tablet, 0.2 MG PO TID, (Reported) take this dose during sutent treatment Doxycycline Hyclate 100 Mg Tablet, 100 MG PO BID Prescribed by: LEEANNA YIP on 12/04/18 0118 Famotidine 20 Mg Tablet, 20 MG PO BID, (Reported) Fluticasone/Vilanterol 1 Each Blst.w.dev, 1 EACH IH DAILY, (Reported) Furosemide 80 Mg Tablet, 160 MG PO DAILY, (Reported) take 2 (80mg) tabs Furosemide 80 Mg Tablet, 80 MG PO DAILY@1200, (Reported) Glimepiride 1 Mg Tablet, 0.5 MG PO DAILY, (Reported) Glimepiride 2 Mg Tablet, 2 MG PO DAILY, (Reported) Hydrocodone Bit/Acetaminophen 1 Tab Tab, 1 EACH PO Q4-6HR PRN for PAIN-MODERATE Prescribed by: LEEANNA YIP on 12/04/18 0118 Hydrocodone/Acetaminophen 1 Each Tablet, 1 EACH PO Q4H PRN for PAIN-MODERATE Prescribed by: CEE ROSENBERG on 11/29/17 0853 Insulin Aspart 300 Units/3 Ml Solution, 15-30 UNITS SQ AC, (Reported) sliding scale Insulin Glargine,Hum.rec.anlog 300 Unit/1 Ml Insuln.pen, 25 UNIT SQ DAILY, (Reported) Ipratropium/Albuterol Sulfate 3 Ml Ampul.neb, 3 ML IH QID PRN for SHORTNESS OF BREATH, (Reported) Metoprolol Tartrate 100 Mg Tablet, 100 MG PO BID, (Reported) Minoxidil 10 Mg Tab, 20 MG PO BID, (Reported) take 2 (10mg) tabs Montelukast Sodium 10 Mg Tablet, 10 MG PO HS, (Reported) Oxycodone HCl 30 Mg Tablet, 30 MG PO Q6H PRN for PAIN-MILD TO MODERATE, (Reported) Spironolactone 50 Mg Tablet, 50 MG PO DAILY@1200, (Reported) Sunitinib Malate 50 Mg Capsule, 50 MG PO DAILY, (Reported) take for 2 weeks then hold for 1 week then repeat Temazepam 30 Mg Capsule, 30 MG PO HS, (Reported) Patient Home Medication List Home Medication List Reviewed: Yes Review of Systems Review of Systems Constitutional: no symptoms reported EENTM: no symptoms reported Respiratory: see HPI Cardiovascular: no symptoms reported Gastrointestinal: no symptoms reported Genitourinary: see HPI Musculoskeletal: see HPI Skin: no symptoms reported Psychiatric/Neurological: No Symptoms Reported Hematologic/Lymphatic: No Symptoms Reported Immunological/Allergic: no symptoms reported Past Uajtfri-Sjbbvt-Vdojda Hx Past Med/Social Hx: Reviewed and Corrections made Patient Social History Alcohol Use: Rarely Uses Number of Drinks Today: 0 Recreational Drug Use: No Smoking Status: Never a Smoker 2nd Hand Smoke Exposure: No Recent Foreign Travel: No Contact w/Someone Who Travel: No Recent Infectious Disease Expo: No Recent Hopitalizations: No Immunizations Up To Date Tetanus Booster (TDap): Unknown PED Vaccines UTD: No Date of Pneumonia Vaccine: Nov 07, 2015 Date of Influenza Vaccine: Nov 06, 2017 Seasonal Allergies Seasonal Allergies: Yes Past Medical History Surgeries: Yes (HERNIA REPAIR, R MENISCUS REPAIR x2, dialysis port R K IDNEY RENIAVAK ) Abdominal, Nephrectomy (right), Orthopedic Respiratory: Yes (ASTHMA, STABLE LUNG MASS,) Asthma, Sleep Apnea Currently Using CPAP: Yes Currently Using BIPAP: No Cardiac: Yes High Cholesterol, Hypertension Neurological: Yes Headaches /Migraines Reproductive Disorders: No Sexually Transmitted Disease: No HIV/AIDS: No Genitourinary: Yes Renal Failure, Dialysis Gastrointestinal: Yes (TAKES PEPCID NEEDED) Gastroesophageal Reflux Musculoskeletal: Yes (MENISCUS TEAR Left KNEE) Arthritis, Chronic Back Pain Endocrine: Yes (STARTED DIALYSIS IN NOVEMBER 2015) Diabetes, Insulin dep Are Your Blood Sugars Over 250: No Loss of Vision: Bilateral Hearing Impairment: Denies Cancer: Yes (PATIENT BEING MONITORED BY DR. LINDER FOR LUNG AND RENAL MASSES) Kidney Did You Recieve Any Treatments: Yes What Type of Treatment Did You: Chemotherapy Psychosocial: No Integumentary: No Blood Disorders: Yes (ANEMIA) Adverse Reaction/Blood Tranf: No (N/A) Family Medical History Arthritis 19 MOTHER (grandmother) Asthma 19 MOTHER (grandmother) Cancer of mouth 19 MOTHER (throat) Hypertension 19 MOTHER (grandmother) Respiratory disorder 19 MOTHER (grandmother) Seizure disorder 19 MOTHER (aunt) Thyroid disease 19 MOTHER (aunt) No Family History of: AIDS Abdominal aortic aneurysm Adjuntas's disease Alcoholism Alzheimer's disease Cardiovascular disease Cataracts Colon cancer Completed stroke Congenital disease Congenital heart disease Coronary thrombosis Cystic fibrosis Deafness or hearing loss Dementia Diabetes mellitus Drug abuse Dysphasia Fibrocystic disease of breast Gastroenteritis Glaucoma Headache disorder Hypercholesterolemia Infertility Kidney disease Myocardial infarction Neoplasm Osteoporosis Parkinson's disease Severe allergy Tuberculosis Visual disorder Physical Exam Vital Signs Vital Signs - First Documented 12/03/18 22:07 Temp 36.6 Pulse 74 Resp 18 B/P (MAP) 154/80 (104) Pulse Ox 94 O2 Delivery Room Air Capillary Refill : Less Than 3 Seconds Height, Weight, BMI Height: 5'10.00" Weight: 277lbs. 0.0oz. [id number]; 39.00 BMI Method:Stated General Appearance: WD/WN, Mild Distress HEENT: PERRL/EOMI, Normal ENT Inspection Neck: Normal Inspection Respiratory: Lungs Clear, Normal Breath Sounds, No Accessory Muscle Use, No Respiratory Distress, Other (chest wall tender to palpation of the right posterior costal margin) Cardiovascular: Regular Rate, Rhythm, No Edema Extremity: Normal Inspection, No Pedal Edema Neurologic/Psychiatric: Alert, Oriented x3, No Motor/Sensory Deficits, Normal Mood/Affect, soil analyst II-XII Norm as Tested Skin: Normal Color, Warm/Dry; No Rash Progress/Results/Core Measures Suspected Sepsis Recent Fever Within 48 Hours: No Infection Criteria Present: None New/Unexplained Altered Menta: No Sepsis Screen: No Definite Risk SIRS Temperature: Pulse: 74 Respiratory Rate: 18 Laboratory Tests 12/03/18 22:13: White Blood Count 8.0 Blood Pressure 154 /80 Mean: 104 Laboratory Tests 12/03/18 22:13: Creatinine 13.99H, Platelet Count 232, Total Bilirubin 0.5 Results/Orders Lab Results Laboratory Tests Test 12/03/18 22:13 12/03/18 23:27 Range/Units White Blood Count 8.0 4.3-11.0 10^3/uL Red Blood Count 3.18 L 4.35-5.85 10^6/uL Hemoglobin 8.6 L 13.3-17.7 G/DL Hematocrit 27 L 40-54 % Mean Corpuscular Volume 86 80-99 FL Mean Corpuscular Hemoglobin 27 25-34 PG Mean Corpuscular Hemoglobin Concent 32 32-36 G/DL Red Cell Distribution Width 15.8 H 10.0-14.5 % Platelet Count 232 130-400 10^3/uL Mean Platelet Volume 11.5 H 7.4-10.4 FL Neutrophils (%) (Auto) 71 42-75 % Lymphocytes (%) (Auto) 15 12-44 % Monocytes (%) (Auto) 7 0-12 % Eosinophils (%) (Auto) 7 0-10 % Basophils (%) (Auto) 1 0-10 % Neutrophils # (Auto) 5.6 1.8-7.8 X 10^3 Lymphocytes # (Auto) 1.2 1.0-4.0 X 10^3 Monocytes # (Auto) 0.5 0.0-1.0 X 10^3 Eosinophils # (Auto) 0.6 H 0.0-0.3 10^3/uL Basophils # (Auto) 0.1 0.0-0.1 10^3/uL Sodium Level 141 135-145 MMOL/L Potassium Level 4.9 3.6-5.0 MMOL/L Chloride Level 104 98-107 MMOL/L Carbon Dioxide Level 21 21-32 MMOL/L Anion Gap 16 H 5-14 MMOL/L Blood Urea Nitrogen 60 H 7-18 MG/DL Creatinine 13.99 H 0.60-1.30 MG/DL Estimat Glomerular Filtration Rate 5 BUN/Creatinine Ratio 4 Glucose Level 178 H 70-105 MG/DL Calcium Level 8.9 8.5-10.1 MG/DL Corrected Calcium 8.9 8.5-10.1 MG/DL Total Bilirubin 0.5 0.1-1.0 MG/DL Aspartate Amino Transf (AST/SGOT) 21 5-34 U/L Alanine Aminotransferase (ALT/SGPT) 16 0-55 U/L Alkaline Phosphatase 88 40-136 U/L C-Reactive Protein High Sensitivity 1.52 H 0.00-0.50 MG/DL Total Protein 7.1 6.4-8.2 GM/DL Albumin 4.0 3.2-4.5 GM/DL Lipase 10 8-78 U/L Urine Color YELLOW Urine Clarity CLEAR Urine pH 6 5-9 Urine Specific [place] 1.015 L 1.016-1.022 Urine Protein 4+ NEGATIVE Urine Glucose (UA) 2+ H NEGATIVE Urine Ketones NEGATIVE NEGATIVE Urine Nitrite NEGATIVE NEGATIVE Urine Bilirubin NEGATIVE NEGATIVE Urine Urobilinogen NORMAL NORMAL MG/DL Urine Leukocyte Esterase NEGATIVE NEGATIVE Urine RBC (Auto) 3+ H NEGATIVE Urine RBC 2-5 H /HPF Urine WBC 2-5 /HPF Urine Crystals PRESENT H /LPF Urine Amorphous Sediment FEW PERICO URATES H /LPF Urine Bacteria TRACE /HPF Urine Casts NONE /LPF Urine Mucus NEGATIVE /LPF Urine Culture Indicated NO My Orders Orders - LEEANNA YBARRA MD Cbc With Automated Diff (12/03/18 22:25) Comprehensive Metabolic Panel (12/03/18 22:25) Hs C Reactive Protein (12/03/18 22:25) Lipase (12/03/18 22:25) Ua Culture If Indicated (12/03/18 22:25) Ed Iv/Invasive Line Start (12/03/18 22:25) Ct Chest/Abdomen/Pelvis Wo (12/03/18 22:36) Fentanyl Injection (Sublimaze Injection (12/03/18 22:45) Doxycycline Hyclate Tablet (Vibramycin T (12/04/18 01:15) Hydrocodone/Apap 5/325 Tablet (Lortab 5 (12/04/18 01:15) Medications Given in ED Current Medications Medications Dose Ordered Sig/Hina Route Start Time Stop Time Status Last Admin Dose Admin Acetaminophen/ Hydrocodone Bitart 1 tab ONCE ONCE PO 12/04/18 01:15 12/04/18 01:16 DC 12/04/18 01:24 1 TAB Doxycycline Hyclate 100 mg ONCE ONCE PO 12/04/18 01:15 12/04/18 01:16 DC 12/04/18 01:24 100 MG Fentanyl Citrate 75 mcg ONCE ONCE IVP 12/03/18 22:45 12/03/18 22:46 DC 12/03/18 22:42 75 MCG Vital Signs/I&O 12/03/18 22:07 Temp 36.6 Pulse 74 Resp 18 B/P (MAP) 154/80 (104) Pulse Ox 94 O2 Delivery Room Air Capillary Refill : Less Than 3 Seconds Blood Pressure Mean: 104 POS Progress Note : Progress Note Pain was treated with fentanyl. Labs were fairly unremarkable in context of a dialysis patient. CT was obtained to evaluate. Further. Although not commented on the stat rad report, there appeared to be an infiltrate in the right lower lung corresponding well with the location of his pain. Other chronic findings were described on the report. No other acute findings were seen to explain his pain. Patient was given a hydrocodone before leaving for further pain control. He did have some increased work of breathing during his ER stay. He declined a nebulizer treatment stating he would use a treatment at home. He was given a prescription for a few hydrocodone to use for breakthrough pain should he need it. His tenderness was fairly superficial. I informed him to return to care if he developed a rash as this could be shingles. Diagnostic Imaging Diagonstic Imaging: CT Plain Films/CT/US/NM/MRI: abdomen, pelvis Comments CT abdomen and pelvis viewed by me and compared with prior CT. Statrad report reviewed. I question presence of an infiltrate in the right lower lung not commented on by the stat rad report. Departure Impression Primary Impression: Right-sided chest wall pain Additional Impressions: Right lower lobe pneumonia Qualified Codes: J18.1 - Lobar pneumonia, unspecified organism End stage renal failure on dialysis Asthma exacerbation Qualified Codes: J45.901 - Unspecified asthma with (acute) exacerbation Disposition: HOME, SELF-CARE Condition: Improved Departure-Patient Inst. Decision time for Depature: 01:16 Referrals: [facility]/ (PCP) Primary Care Physician GALE SOLIZ (Family) Primary Care Physician Patient Instructions: Pneumonia in Adults Add. Discharge Instructions: Finish doxycycline as prescribed. Please follow-up with your primary care provider later this week. Return home and uses nebulizer treatment as soon as you return home. Use every 4 hours as needed for wheezing or shortness of breath. You may use hydrocodone as prescribed for pain. If you develop any skin symptoms such as rash that might be related to shingles, please call your doctor or return to care. Return to care if you have any worsening of symptoms including development of fever, worsening shortness of breath, escalating pain, etc. Perform your dialysis as previously directed. All discharge instructions reviewed with patient and/or family. Voiced understanding. Scripts Hydrocodone Bit/Acetaminophen (Hydrocodone/Acetaminophen 5/325mg Tablet) 1 Tab Tab 1 EACH PO Q4-6HR PRN for PAIN-MODERATE MDD 10, #8 TAB Prov: LEEANNA YBARRA MD 12/04/18 Doxycycline Hyclate (Doxycycline Hyclate) 100 Mg Tablet 100 MG PO BID, #20 TAB 0 Refills Prov: LEEANNA YBARRA MD 12/04/18 Copy Copies To 1: IRIS LI JOSHUA T MD Dec 04, 2018 01:19 POS
[2018-12-04 01:27] VITALS: BP 138/66
--- NOTE | 2018-12-04 08:00 | Diagnostic Imaging Report ---
PROCEDURE: CT chest, abdomen, and pelvis without contrast. TECHNIQUE: Multiple contiguous axial images were obtained through the chest, abdomen, and pelvis without the use of intravenous contrast. Auto Exposure Controls were utilized during the CT exam to meet ALARA standards for radiation dose reduction. INDICATION: Right flank pain beginning this afternoon. This is tender upon palpation. History of stage IV renal cancer. Patient is on home dialysis 5 times a week. Patient has not had dialysis since Monday. COMPARISON STUDY: CT of chest, abdomen and pelvis from October 18. FINDINGS: A large left pleural effusion is not appreciably changed. There is atelectasis of most of the left lower lobe which was present previously. The heart size is normal. There is a trace amount of pericardial effusion which has decreased. Some small mediastinal lymph nodes present. A central venous catheter has tip near the atrial caval junction. A 17 mm nodule anteriorly in the left middle lobe has decreased to 9 mm. There is a smaller 8.6 mm nodule which previously measured 12.5 mm. Mild atelectasis is present in the right base. No osseous lesions are present. Abdomen and pelvis: The liver, gallbladder, spleen, pancreas and adrenal glands appear normal. Right kidney is absent. There is stranding around the left kidney which was present previously. Abdominal wall hernia is again identified. This contains fat which has some stranding within it. This appears a little worse than previously seen. The urinary bladder is nearly decompressed. Mild wall thickening is stable. Bowel loops demonstrates no inflammation or obstruction. Appendix appears normal. The osseous structures demonstrate no evidence of osseous metastasis. IMPRESSION: 1. Stable large left pleural effusion and adjacent atelectasis. 2. The small pericardial effusion has nearly resolved. 3. 2 nodules in the right middle lobe have decreased in size. 4. Absence of the right kidney with persistent stranding around the left kidney. 5. Fat-containing anterior abdominal wall hernia is again identified. There is again seen to be stranding of the fat. Dictated by: Dictated on workstation # [id number]
== END 2018-12-04 01:30 | disposition home or self-care (01) ==
LOC: EDUNIT# 21:58 → ER 21:59
DX: J18.1 Lobar pneumonia, unspecified organism (principal); E11.22 Type 2 diabetes mellitus with diabetic chronic kidney disease; I12.0 Hypertensive chronic kidney disease with stage 5 chronic kidney disease or end stage renal disease; N18.6 End stage renal disease; J45.901 Unspecified asthma with (acute) exacerbation; E78.00 Pure hypercholesterolemia, unspecified; G43.909 Migraine, unspecified, not intractable, without status migrainosus; D64.9 Anemia, unspecified; G47.30 Sleep apnea, unspecified; K21.9 Gastro-esophageal reflux disease without esophagitis; Z99.89 Dependence on other enabling machines and devices; Z79.82 Long term (current) use of aspirin; Z85.528 Personal history of other malignant neoplasm of kidney; Z99.2 Dependence on renal dialysis; Z88.8 Allergy status to other drugs, medicaments and biological substances; Z79.51 Long term (current) use of inhaled steroids; Z79.4 Long term (current) use of insulin; Z90.5 Acquired absence of kidney; Z80.8 Family history of malignant neoplasm of other organs or systems; Z82.49 Family history of ischemic heart disease and other diseases of the circulatory system
CPT/HCPCS: 36415; 71250; 74176; 80053; 81000; 83690; 85025; 86141; 96374

== ENCOUNTER 2018-12-12 18:15 | Emergency (ER) | payer MEDICARE, MEDICAID ==
[~2018-12-12] VITALS: Ht 177.8 cm; Wt 128.6 kg
[~2018-12-12 18:15] MED LIST changes: +ACHD5005 PO; +DOXY100T2 PO
--- NOTE | 2018-12-12 20:39 | ED Back Pain ---
General Chief Complaint: Back Problems Stated Complaint: BACK PAIN Nursing Triage Note: Pt to ED in wheelchair. Pt reports being seen here approximately one week ago for pneumonia. Pt reports back pain at that time that has continued and worsened since. Pt describes pain as severe today. Pt reports trying to take hydrocodone but vomited afterward. Pt has hx of kidney cancer with mets to the lungs and is currently undergoing dialysis and chemo. Nursing Sepsis Screen: No Definite Risk Source of Information: Patient, Other Exam Limitations: No Limitations History of Present Illness Date Seen by Provider: Dec 12, 2018 Time Seen by Provider: 20:20 Initial Comments Patient presents ER by private conveyance with chief complaint of back pain on his right side posterior flank unlike his chronic low back pain in placement as well as character. He has hypersensitivity to light touch over skin but no burning rash or itching. He's had this for about a week. He came in to the ER had labs and CT and was diagnosed with a infiltrate on the right lower side and put on antibiotics as well as hydrocodone. He did complete takes 20 mg of oxycodone every 6 hours for his chronic pain. He has a history of a right nephrectomy secondary to renal cell carcinoma on the ipsilateral side approximately one year ago. He still on chemotherapy but not radiation therapy. He has nausea when the pain gets very bad. He has his own nausea medicines and took some earlier is not having any nausea presently. He has been using the hydrocodone which cause nausea and having poor oral intake. He is on dialysis. He produces urine once or twice a day. He feels dehydrated. 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 Calixto at [place], [place] and oncologist is also at [facility] [place]. Primary care doctor is Drake Mason at [facility]. He denies any fever or productive cough. He has a history of controlled hypertension but no coronary disease vascular disease or stroke. Allergies and Home Medications Allergies Coded Allergies: fluticasone (Verified Allergy, Unknown, asthma attack, 11/23/17) salmeterol (Verified Allergy, Unknown, asthma attack, 11/23/17) Home Medications Albuterol Sulfate 6.7 Gm Hfa.aer.ad, 2 PUFF IH QID PRN for SHORTNESS OF BREATH, (Reported) Albuterol Sulfate 2.5 Mg/3 Ml Vial.neb, 2.5 MG IH QID PRN for WHEEZING, (Reported) Amlodipine Besylate 5 Mg Tablet, 5 MG PO DAILY, (Reported) Aspirin 81 Mg Tab.chew, 81 MG PO HS, (Reported) Calcitriol 0.5 Mcg Capsule, 0.5 MCG PO DAILY, (Reported) Cinacalcet HCl 30 Mg Tablet, 30 MG PO DAILY@1800, (Reported) Clonidine HCl 0.1 Mg Tablet, 0.1 MG PO TID, (Reported) take this dose during week off of sutent Clonidine HCl 0.2 Mg Tablet, 0.2 MG PO TID, (Reported) take this dose during sutent treatment Doxycycline Hyclate 100 Mg Tablet, 100 MG PO BID Prescribed by: LEEANNA YIP on 12/04/18117 Famotidine 20 Mg Tablet, 20 MG PO BID, (Reported) Fluticasone/Vilanterol 1 Each Blst.w.dev, 1 EACH IH DAILY, (Reported) Furosemide 80 Mg Tablet, 160 MG PO DAILY, (Reported) take 2 (80mg) tabs Furosemide 80 Mg Tablet, 80 MG PO DAILY@1200, (Reported) Glimepiride 1 Mg Tablet, 0.5 MG PO DAILY, (Reported) Glimepiride 2 Mg Tablet, 2 MG PO DAILY, (Reported) Hydrocodone Bit/Acetaminophen 1 Tab Tab, 1 EACH PO Q4-6HR PRN for PAIN-MODERATE Prescribed by: LEEANNA YIP on 12/04/18117 Hydrocodone/Acetaminophen 1 Each Tablet, 1 EACH PO Q4H PRN for PAIN-MODERATE Prescribed by: CEE ROSENBERG on 11/29/17 0853 Insulin Aspart 300 Units/3 Ml Solution, 15-30 UNITS SQ AC, (Reported) sliding scale Insulin Glargine,Hum.rec.anlog 300 Unit/1 Ml Insuln.pen, 25 UNIT SQ DAILY, (Reported) Ipratropium/Albuterol Sulfate 3 Ml Ampul.neb, 3 ML IH QID PRN for SHORTNESS OF BREATH, (Reported) Metoprolol Tartrate 100 Mg Tablet, 100 MG PO BID, (Reported) Minoxidil 10 Mg Tab, 20 MG PO BID, (Reported) take 2 (10mg) tabs Montelukast Sodium 10 Mg Tablet, 10 MG PO HS, (Reported) Oxycodone HCl 30 Mg Tablet, 30 MG PO Q6H PRN for PAIN-MILD TO MODERATE, (Reported) Spironolactone 50 Mg Tablet, 50 MG PO DAILY@1200, (Reported) Sunitinib Malate 50 Mg Capsule, 50 MG PO DAILY, (Reported) take for 2 weeks then hold for 1 week then repeat Temazepam 30 Mg Capsule, 30 MG PO HS, (Reported) Patient Home Medication List Home Medication List Reviewed: Yes Review of Systems Constitutional: No chills, No fever, No malaise EENTM: No ear discharge, No ear pain Respiratory: No cough, No short of breath Cardiovascular: No chest pain, No edema Gastrointestinal: No abdominal pain, No constipation, No diarrhea Genitourinary: see HPI; No discharge, No dysuria Musculoskeletal: see HPI, back pain Skin: see HPI All Other Systems Reviewed Negative Unless Noted: Yes Past Pfymziq-Aqyzzk-Kwmlds Hx Patient Social History Alcohol Use: Rarely Uses Recreational Drug Use: No 2nd Hand Smoke Exposure: No Recent Foreign Travel: No Contact w/Someone Who Travel: No Recent Infectious Disease Expo: No Recent Hopitalizations: No Immunizations Up To Date Tetanus Booster (TDap): Unknown PED Vaccines UTD: No Date of Pneumonia Vaccine: Nov 07, 2015 Date of Influenza Vaccine: Nov 06, 2017 Seasonal Allergies Seasonal Allergies: Yes Past Medical History Surgeries: Yes (HERNIA REPAIR, R MENISCUS REPAIR x2, dialysis port R K JANESSA RUBIO ) Abdominal, Nephrectomy, Orthopedic Respiratory: Yes (ASTHMA, STABLE LUNG MASS,) Asthma, Sleep Apnea Currently Using CPAP: Yes Currently Using BIPAP: No Cardiac: Yes High Cholesterol, Hypertension Neurological: Yes Headaches /Migraines Reproductive Disorders: No Sexually Transmitted Disease: No HIV/AIDS: No Genitourinary: Yes Renal Failure, Dialysis Gastrointestinal: Yes (TAKES PEPCID NEEDED) Gastroesophageal Reflux Musculoskeletal: Yes (MENISCUS TEAR Left KNEE) Arthritis, Chronic Back Pain Endocrine: Yes (STARTED DIALYSIS IN NOVEMBER 2015) Diabetes, Insulin dep Loss of Vision: Bilateral Hearing Impairment: Denies Cancer: Yes (PATIENT BEING MONITORED BY DR. LINDER FOR LUNG AND RENAL MASSES) Kidney Did You Recieve Any Treatments: Yes What Type of Treatment Did You: Chemotherapy Psychosocial: No Integumentary: No Blood Disorders: Yes (ANEMIA) Adverse Reaction/Blood Tranf: No (N/A) Family Medical History Arthritis 19 MOTHER (grandmother) Asthma 19 MOTHER (grandmother) Cancer of mouth 19 MOTHER (throat) Hypertension 19 MOTHER (grandmother) Respiratory disorder 19 MOTHER (grandmother) Seizure disorder 19 MOTHER (aunt) Thyroid disease 19 MOTHER (aunt) No Family History of: AIDS Abdominal aortic aneurysm Kingfisher's disease Alcoholism Alzheimer's disease Cardiovascular disease Cataracts Colon cancer Completed stroke Congenital disease Congenital heart disease Coronary thrombosis Cystic fibrosis Deafness or hearing loss Dementia Diabetes mellitus Drug abuse Dysphasia Fibrocystic disease of breast Gastroenteritis Glaucoma Headache disorder Hypercholesterolemia Infertility Kidney disease Myocardial infarction Neoplasm Osteoporosis Parkinson's disease Severe allergy Tuberculosis Visual disorder Physical Exam Vital Signs Vital Signs - First Documented 12/12/18 18:28 Temp 36.4 Pulse 76 Resp 16 B/P (MAP) 156/77 (103) Pulse Ox 99 O2 Delivery Room Air Capillary Refill : Less Than 3 Seconds Height, Weight, BMI Height: 5'10.00" Weight: 277lbs. 0.0oz. 125.345532gb; 40.00 BMI Method:Stated General Appearance: Moderate Distress, Obese HEENT: PERRL/EOMI; No Moist Mucous Membranes Cardiovascular: Regular Rate, Rhythm, Normal Peripheral Pulses Respiratory: Lungs Clear, Normal Breath Sounds, No Accessory Muscle Use, No Respiratory Distress Peripheral Pulses: 2+ Radial Pulses (R), 2+ Radial Pulses (L) Gastrointestinal: Normal Bowel Sounds, Non Tender, Soft Back: Normal Inspection, CVA Tenderness (R) (to light palpation), Other (well healed nephrectomy scar) Extremity: Normal Capillary Refill, Normal Inspection Neurologic/Psychiatric: Alert, Oriented x3, No Motor/Sensory Deficits Skin: Normal Color, Warm/Dry, Other (no erythema, rash, papules) Progress/Results/Core Measures Results/Orders Lab Results Laboratory Tests Test 12/12/18 20:24 Range/Units White Blood Count 7.5 4.3-11.0 10^3/uL Red Blood Count 3.12 L 4.35-5.85 10^6/uL Hemoglobin 8.4 L 13.3-17.7 G/DL Hematocrit 27 L 40-54 % Mean Corpuscular Volume 86 80-99 FL Mean Corpuscular Hemoglobin 27 25-34 PG Mean Corpuscular Hemoglobin Concent 31 L 32-36 G/DL Red Cell Distribution Width 17.0 H 10.0-14.5 % Platelet Count 192 130-400 10^3/uL Mean Platelet Volume 10.5 H 7.4-10.4 FL Neutrophils (%) (Auto) 61 42-75 % Lymphocytes (%) (Auto) 21 12-44 % Monocytes (%) (Auto) 10 0-12 % Eosinophils (%) (Auto) 7 0-10 % Basophils (%) (Auto) 1 0-10 % Neutrophils # (Auto) 4.6 1.8-7.8 X 10^3 Lymphocytes # (Auto) 1.5 1.0-4.0 X 10^3 Monocytes # (Auto) 0.8 0.0-1.0 X 10^3 Eosinophils # (Auto) 0.5 H 0.0-0.3 10^3/uL Basophils # (Auto) 0.1 0.0-0.1 10^3/uL Sodium Level 139 135-145 MMOL/L Potassium Level 4.5 3.6-5.0 MMOL/L Chloride Level 100 98-107 MMOL/L Carbon Dioxide Level 24 21-32 MMOL/L Anion Gap 15 H 5-14 MMOL/L Blood Urea Nitrogen 60 H 7-18 MG/DL Creatinine 13.76 H 0.60-1.30 MG/DL Estimat Glomerular Filtration Rate 5 BUN/Creatinine Ratio 4 Glucose Level 148 H 70-105 MG/DL Calcium Level 9.4 8.5-10.1 MG/DL Corrected Calcium 9.3 8.5-10.1 MG/DL Total Bilirubin 0.6 0.1-1.0 MG/DL Aspartate Amino Transf (AST/SGOT) 16 5-34 U/L Alanine Aminotransferase (ALT/SGPT) 17 0-55 U/L Alkaline Phosphatase 82 40-136 U/L Total Protein 7.2 6.4-8.2 GM/DL Albumin 4.1 3.2-4.5 GM/DL My Orders Orders - JUNAID OJEDA Cbc With Automated Diff (12/12/18 20:22) Comprehensive Metabolic Panel (12/12/18 20:22) Ua Culture If Indicated (12/12/18 20:22) Hydromorphone Injection (Dilaudid Inject (12/12/18 20:45) Ketamine Injection (Ketalar Injection) (12/12/18 20:45) Ct Chest/Abdomen/Pelvis Wo (12/12/18 20:42) Medications Given in ED Current Medications Medications Dose Ordered Sig/Hina Route Start Time Stop Time Status Last Admin Dose Admin Hydromorphone HCl 0.5 mg ONCE ONCE IV 12/12/18 20:45 12/12/18 20:46 DC 12/12/18 20:42 0.5 MG Ketamine HCl 25 mg ONCE ONCE IV 12/12/18 20:45 12/12/18 20:46 DC 12/12/18 20:43 25 MG Vital Signs/I&O 12/12/18 18:28 Temp 36.4 Pulse 76 Resp 16 B/P (MAP) 156/77 (103) Pulse Ox 99 O2 Delivery Room Air Blood Pressure Mean: 103 POS Progress Progress Note #1: Time: 20:38 Progress Note Suspected shingles but there is no rash after a week. Previous imaging of the chest abdomen pelvis were not really remarkable. We have repeated see if is any organized pneumonia at this point. Seems to be hyper algesia possibly from radiculopathy versus viral infection of the nerves etc. Plan to give half milligram of Dilaudid and 25 mg of ketamine IV. Progress Note #2: Time: 21:[address] remained stable. His pain is much improved after the ketamine and Dilaudid. Plan to put him out with some neuropathic pain medicines gabapentin 300 mg up to 3 times a day and follow-up with primary care closely. We'll put him on valacyclovir for suspected shingles Versus radiculopathy less likely. Diagnostic Imaging Diagonstic Imaging: CT Plain Films/CT/US/NM/MRI: chest, abdomen, pelvis Comments NAME: CYNDEE BRITO Jose MED REC#: [id number] PT STATUS: REG ER : 1970 PHYSICIAN: JUNAID OJEDA MD ADMIT DATE: 12/12/18/ER Draft POSDate of Exam:12/12/18 CT CHEST/ABDOMEN/PELVIS WO EXAMINATION: CT Chest, Abdomen and Pelvis without intravenous contrast. TECHNIQUE: Multiple contiguous axial images were obtained through the chest, abdomen and pelvis without intravenous contrast. All CT scans use one or more of the following dose optimizing techniques: automated exposure control, MA and/or KvP adjustment based on a patient size and exam type, or iterative reconstruction. HISTORY: Back pain COMPARISON: 12/03/2018 FINDINGS: The lungs are clear without edema or pneumonia. There is a moderate to large left pleural effusion. There is left lower lobe collapse. A 9 mm right upper lobe nodule is unchanged. There is gynecomastia. Heart size is normal. No pericardial effusion. Aorta is normal in caliber. There is no axillary or supraclavicular lymphadenopathy. There is no mediastinal lymphadenopathy. The liver is normal without focal lesion. There is no biliary ductal dilation. Gallbladder is normal. Pancreas is normal. Spleen is normal. Adrenal glands are normal. Right kidney is surgically absent. Left-sided perinephric stranding is unchanged. Urinary bladder is normal. There are no dilated loops of large or small bowel. No obstruction or inflammation. No free fluid or air. No abdominal or pelvic lymphadenopathy. Aorta is normal in caliber without aneurysm. Ventral abdominal hernia is unchanged. There are no suspicious osseus lesions. IMPRESSION: 1. Stable moderate to large left pleural effusion with left lower lobe collapse. 2. Stable 9 mm right upper lobe pulmonary nodule. 3. Persistent perinephric stranding on the left. This is nonspecific but may represent pyelonephritis. No obstructing stone is seen. No hydronephrosis. Dictated on workstation # [id number] Dict: 12/12/182111 Trans: 12/12/182117 [facility] [id number] Interpreted by: MARCELINA BARRIENTOS MD Electronically signed by: Reviewed: Reviewed by Me Departure Impression Primary Impression: Acute right-sided thoracic back pain Disposition: 01 HOME, SELF-CARE Condition: Stable Departure-Patient Inst. Decision time for Depature: 21:23 Referrals: [facility] (PCP) Primary Care Physician GALE MASON (Family) Primary Care Physician Patient Instructions: Shingles (DC) Add. Discharge Instructions: I suspect you may be having a viral outbreak of shingles. You may develop a rash later. Topical creams with capsaicin oil have been helpful. Lidocaine patches can be helpful. Start the neuropathic pain medicine called gabapentin 300 mg every 8 hours as needed for pain. This may cause drowsiness. If excessive drowsiness then talk your primary care provider about a lower dose. Plan to follow up later with primary care doctor for reevaluation. Valacyclovir 1 tablet 3 times daily for the next week. This can help decrease the severity and duration if it is indeed shingles. All discharge instructions reviewed with patient and/or family. Voiced understanding. Scripts Valacyclovir HCl (Valacyclovir) 1,000 Mg Tablet 1000 MG PO TID for 7 Days, #21 TAB 0 Refills Prov: JUNAID OJEDA 12/12/18 Gabapentin (Gabapentin) 300 Mg Capsule 300 MG PO Q8H PRN for pain, #30 CAP 0 Refills Prov: JUNAID OJEDA 12/12/18 Capsaicin (Capsaicin) 42.5 Gm Cream..g. 3 GM TP Q6H PRN for PAIN-MODERATE, #1 TUBE 0 Refills Prov: JUNAID OJEDA 12/12/18 JUNAID OJEDA Dec 12, 2018 20:39 POS
[2018-12-12 20:40] LABS: BASOPHILS # (AUTO) 0.1 10^3/uL (0.0-0.1); BASOPHILS % (AUTO) 1 % (0-10); EOSINOPHILS # (AUTO) 0.5 10^3/uL (0.0-0.3); EOSINOPHILS % (AUTO) 7 % (0-10); HEMATOCRIT 27 % (40-54); HEMOGLOBIN 8.4 G/DL (13.3-17.7); LYMPHOCYTES # (AUTO) 1.5 X 10^3 (1.0-4.0); LYMPHOCYTES % (AUTO) 21 % (12-44); MEAN CORPUSCULAR HEMOGLOBIN 27 PG (25-34); MEAN CORPUSCULAR HGB CONC 31 G/DL (32-36); MEAN CORPUSCULAR VOLUME 86 FL (80-99); MEAN PLATELET VOLUME 10.5 FL (7.4-10.4); MONOCYTES # (AUTO) 0.8 X 10^3 (0.0-1.0); MONOCYTES % (AUTO) 10 % (0-12); NEUTROPHILS # (AUTO) 4.6 X 10^3 (1.8-7.8); NEUTROPHILS % (AUTO) 61 % (42-75); PLATELET COUNT 192 10^3/uL (130-400); WHITE BLOOD COUNT 7.5 10^3/uL (4.3-11.0)
[2018-12-12] MEDS ORDERED: KETAMINE HCL 100 MG/ML 5 ML VIAL IV ONE (20:45)
[2018-12-12] MEDS ORDERED: HYDROmorphone 2 MG/ML VIAL (DILAUDID) IV ONE (20:45)
[2018-12-12 20:51] LABS: ALBUMIN 4.1 GM/DL (3.2-4.5); BILIRUBIN,TOTAL 0.6 MG/DL (0.1-1.0); CALCIUM 9.4 MG/DL (8.5-10.1); CREATININE SERUM 13.76 MG/DL (0.60-1.30); POTASSIUM 4.5 MMOL/L (3.6-5.0); TOTAL PROTEIN 7.2 GM/DL (6.4-8.2)
--- NOTE | 2018-12-12 21:19 | Diagnostic Imaging Report ---
EXAMINATION: CT Chest, Abdomen and Pelvis without intravenous contrast. TECHNIQUE: Multiple contiguous axial images were obtained through the chest, abdomen and pelvis without intravenous contrast. All CT scans use one or more of the following dose optimizing techniques: automated exposure control, MA and/or KvP adjustment based on a patient size and exam type, or iterative reconstruction. HISTORY: Back pain COMPARISON: 12/03/2018 FINDINGS: The lungs are clear without edema or pneumonia. There is a moderate to large left pleural effusion. There is left lower lobe collapse. A 9 mm right upper lobe nodule is unchanged. There is gynecomastia. Heart size is normal. No pericardial effusion. Aorta is normal in caliber. There is no axillary or supraclavicular lymphadenopathy. There is no mediastinal lymphadenopathy. The liver is normal without focal lesion. There is no biliary ductal dilation. Gallbladder is normal. Pancreas is normal. Spleen is normal. Adrenal glands are normal. Right kidney is surgically absent. Left-sided perinephric stranding is unchanged. Urinary bladder is normal. There are no dilated loops of large or small bowel. No obstruction or inflammation. No free fluid or air. No abdominal or pelvic lymphadenopathy. Aorta is normal in caliber without aneurysm. Ventral abdominal hernia is unchanged. There are no suspicious osseus lesions. IMPRESSION: 1. Stable moderate to large left pleural effusion with left lower lobe collapse. 2. Stable 9 mm right upper lobe pulmonary nodule. 3. Persistent perinephric stranding on the left. This is nonspecific but may represent pyelonephritis. No obstructing stone is seen. No hydronephrosis. Dictated by: Dictated on workstation # [id number]
[2018-12-12] MEDS ORDERED: CAPS42.513 TP (21:30)
[2018-12-12] MEDS ORDERED: VALA1000 PO (21:30)
[2018-12-12] MEDS ORDERED: GABA-488 PO (21:30)
[2018-12-12] MEDS ORDERED: GABAPENTIN 300 MG (NEURONTIN) CAP PO ONE (21:45)
[2018-12-12 22:08] VITALS: BP 126/68
== END 2018-12-12 21:58 | disposition home or self-care (01) ==
LOC: EDUNIT# 18:15 → ER 18:16
DX: M54.6 Pain in thoracic spine (principal); I10 Essential (primary) hypertension; E11.9 Type 2 diabetes mellitus without complications; E78.00 Pure hypercholesterolemia, unspecified; G43.909 Migraine, unspecified, not intractable, without status migrainosus; J45.909 Unspecified asthma, uncomplicated; G47.30 Sleep apnea, unspecified; D64.9 Anemia, unspecified; K21.9 Gastro-esophageal reflux disease without esophagitis; Z99.89 Dependence on other enabling machines and devices; Z85.118 Personal history of other malignant neoplasm of bronchus and lung; Z90.5 Acquired absence of kidney; Z99.2 Dependence on renal dialysis; Z88.8 Allergy status to other drugs, medicaments and biological substances; Z79.82 Long term (current) use of aspirin; Z79.51 Long term (current) use of inhaled steroids; Z79.4 Long term (current) use of insulin; Z98.890 Other specified postprocedural states; Z82.49 Family history of ischemic heart disease and other diseases of the circulatory system; Z80.8 Family history of malignant neoplasm of other organs or systems
CPT/HCPCS: 36415; 71250; 74176; 80053; 85025

== ENCOUNTER 2019-01-17 19:52 | Emergency (ER) | payer MEDICARE, MEDICAID ==
[~2019-01-17] VITALS: Ht 177.8 cm; Wt 128.6 kg
[~2019-01-17 19:52] MED LIST changes: +CAPS42.513 TP; +GABA-488 PO; +VALA1000 PO
--- NOTE | 2019-01-17 20:13 | ED Respiratory ---
General Chief Complaint: Respiratory Problems Stated Complaint: SOA Source: patient Exam Limitations: no limitations History of Present Illness Date Seen by Provider: Jan 17, 2019 Time Seen by Provider: 20:11 Initial Comments To ER per private vehicle from home with reports of sudden onset short of breath about one to 2 hours ago. He's been dealing with a cough that is occasionally productive for the past 3-4 days. 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 Tao at [facility], most recent treatment 28 days ago. No fever no chills. He has end-stage renal disease on dialysis that he doesn't home, his most recent treatment was yesterday. Tunneled dialysis catheter right chest. He's been wheezing and using his inhaler with some relief for the past few days. Timing/Duration: this evening Severity: moderate Associated Symptoms: cough, shortness of breath, wheezing Allergies and Home Medications Allergies Coded Allergies: fluticasone (Verified Allergy, Unknown, asthma attack, 11/23/17) salmeterol (Verified Allergy, Unknown, asthma attack, 11/23/17) Home Medications Albuterol Sulfate 6.7 Gm Hfa.aer.ad, 2 PUFF IH QID PRN for SHORTNESS OF BREATH, (Reported) Albuterol Sulfate 2.5 Mg/3 Ml Vial.neb, 2.5 MG IH QID PRN for WHEEZING, (Reported) Amlodipine Besylate 5 Mg Tablet, 5 MG PO DAILY, (Reported) Aspirin 81 Mg Tab.chew, 81 MG PO HS, (Reported) Calcitriol 0.5 Mcg Capsule, 0.5 MCG PO DAILY, (Reported) Capsaicin 42.5 Gm Cream..g., 3 GM TP Q6H PRN for PAIN-MODERATE Prescribed by: JUNAID OJEDA on 12/12/182129 Cinacalcet HCl 30 Mg Tablet, 30 MG PO DAILY@1800, (Reported) Clonidine HCl 0.1 Mg Tablet, 0.1 MG PO TID, (Reported) take this dose during week off of sutent Clonidine HCl 0.2 Mg Tablet, 0.2 MG PO TID, (Reported) take this dose during sutent treatment Doxycycline Hyclate 100 Mg Tablet, 100 MG PO BID Prescribed by: LEEANNA YIP on 10/29/19 0118 Famotidine 20 Mg Tablet, 20 MG PO BID, (Reported) Fluticasone/Vilanterol 1 Each Blst.w.dev, 1 EACH IH DAILY, (Reported) Furosemide 80 Mg Tablet, 160 MG PO DAILY, (Reported) take 2 (80mg) tabs Furosemide 80 Mg Tablet, 80 MG PO DAILY@1200, (Reported) Gabapentin 300 Mg Capsule, 300 MG PO Q8H PRN for pain Prescribed by: JUNAID OJEDA on 12/12/182129 Glimepiride 1 Mg Tablet, 0.5 MG PO DAILY, (Reported) Glimepiride 2 Mg Tablet, 2 MG PO DAILY, (Reported) Hydrocodone Bit/Acetaminophen 1 Tab Tab, 1 EACH PO Q4-6HR PRN for PAIN-MODERATE Prescribed by: LEEANNA YIP on 12/04/18117 Hydrocodone/Acetaminophen 1 Each Tablet, 1 EACH PO Q4H PRN for PAIN-MODERATE Prescribed by: CEE ROSENBERG on 11/29/17 0853 Insulin Aspart 300 Units/3 Ml Solution, 15-30 UNITS SQ AC, (Reported) sliding scale Insulin Glargine,Hum.rec.anlog 300 Unit/1 Ml Insuln.pen, 25 UNIT SQ DAILY, (Reported) Ipratropium/Albuterol Sulfate 3 Ml Ampul.neb, 3 ML IH QID PRN for SHORTNESS OF BREATH, (Reported) Metoprolol Tartrate 100 Mg Tablet, 100 MG PO BID, (Reported) Minoxidil 10 Mg Tab, 20 MG PO BID, (Reported) take 2 (10mg) tabs Montelukast Sodium 10 Mg Tablet, 10 MG PO HS, (Reported) Oxycodone HCl 30 Mg Tablet, 30 MG PO Q6H PRN for PAIN-MILD TO MODERATE, (Reported) Spironolactone 50 Mg Tablet, 50 MG PO DAILY@1200, (Reported) Sunitinib Malate 50 Mg Capsule, 50 MG PO DAILY, (Reported) take for 2 weeks then hold for 1 week then repeat Temazepam 30 Mg Capsule, 30 MG PO HS, (Reported) Valacyclovir HCl 1,000 Mg Tablet, 1,000 MG PO TID Prescribed by: JUNAID OJEDA on 12/12/182129 Patient Home Medication List Home Medication List Reviewed: Yes Review of Systems Review of Systems Constitutional: see HPI; No chills, No fever EENTM: see HPI Respiratory: see HPI, cough, short of breath, wheezing Cardiovascular: no symptoms reported; No chest pain Genitourinary: no symptoms reported Musculoskeletal: no symptoms reported Skin: no symptoms reported Psychiatric/Neurological: No Symptoms Reported Hematologic/Lymphatic: No Symptoms Reported Past Sqpklft-Ygfgyu-Fgeoln Hx Patient Social History Alcohol Use: Denies Use Recreational Drug Use: No 2nd Hand Smoke Exposure: No Recent Foreign Travel: No Contact w/Someone Who Travel: No Recent Hopitalizations: No Immunizations Up To Date Tetanus Booster (TDap): Unknown PED Vaccines UTD: No Date of Pneumonia Vaccine: Nov 07, 2015 Date of Influenza Vaccine: Oct 31, 2018 Seasonal Allergies Seasonal Allergies: Yes Past Medical History Surgeries: Yes (HERNIA REPAIR, R MENISCUS REPAIR x2, dialysis port R K IDNEY RENIAVAK ) Abdominal, Nephrectomy, Orthopedic Respiratory: Yes (ASTHMA, STABLE LUNG MASS,) Asthma, Sleep Apnea Currently Using CPAP: Yes Currently Using BIPAP: No Cardiac: Yes High Cholesterol, Hypertension Neurological: Yes Headaches /Migraines Reproductive Disorders: No Sexually Transmitted Disease: No HIV/AIDS: No Genitourinary: Yes Renal Failure, Dialysis Gastrointestinal: Yes (TAKES PEPCID NEEDED) Gastroesophageal Reflux Musculoskeletal: Yes (MENISCUS TEAR Left KNEE) Arthritis, Chronic Back Pain Endocrine: Yes (STARTED DIALYSIS IN NOVEMBER 2015) Diabetes, Insulin dep Loss of Vision: Bilateral Hearing Impairment: Denies Cancer: Yes (PATIENT BEING MONITORED BY DR. LINDER FOR LUNG AND RENAL MASSES) Kidney Did You Recieve Any Treatments: Yes What Type of Treatment Did You: Chemotherapy Psychosocial: No Integumentary: No Blood Disorders: Yes (ANEMIA) Adverse Reaction/Blood Tranf: No (N/A) Family Medical History Arthritis 19 MOTHER (grandmother) Asthma 19 MOTHER (grandmother) Cancer of mouth 19 MOTHER (throat) Hypertension 19 MOTHER (grandmother) Respiratory disorder 19 MOTHER (grandmother) Seizure disorder 19 MOTHER (aunt) Thyroid disease 19 MOTHER (aunt) No Family History of: AIDS Abdominal aortic aneurysm [place]'s disease Alcoholism Alzheimer's disease Cardiovascular disease Cataracts Colon cancer Completed stroke Congenital disease Congenital heart disease Coronary thrombosis Cystic fibrosis Deafness or hearing loss Dementia Diabetes mellitus Drug abuse Dysphasia Fibrocystic disease of breast Gastroenteritis Glaucoma Headache disorder Hypercholesterolemia Infertility Kidney disease Myocardial infarction Neoplasm Osteoporosis Parkinson's disease Severe allergy Tuberculosis Visual disorder Physical Exam Vital Signs - First Documented 01/17/19 01/17/19 19:55 23:13 Temp 36.8 Pulse 77 Resp 22 B/P (MAP) 166/84 (111) Pulse Ox 97 O2 Delivery Room Air Capillary Refill : Height: 5'10.00" Weight: 277lbs. 0.0oz. 125.933198qj; 40.00 BMI Method:Stated General Appearance: WD/WN, no apparent distress Eyes: Bilateral Eye Normal Inspection, Bilateral Eye PERRL, Bilateral Eye EOMI HEENT: PERRL/EOMI, normal ENT inspection Respiratory: no respiratory distress, no accessory muscle use, other (diminished left base) Cardiovascular: regular rate, rhythm, no murmur Gastrointestinal: normal bowel sounds, non tender, soft Neurologic/Psychiatric: alert, normal mood/affect, oriented x 3 Skin: normal color, warm/dry Progress/Results/Core Measures Suspected Sepsis SIRS Temperature: Pulse: Respiratory Rate: Laboratory Tests 01/17/19 20:57: White Blood Count 8.2 Blood Pressure / Mean: Laboratory Tests 01/17/19 20:57: Creatinine 11.64H, Platelet Count 223 Results/Orders Lab Results Laboratory Tests Test 01/17/19 20:57 Range/Units White Blood Count 8.2 4.3-11.0 10^3/uL Red Blood Count 3.77 L 4.35-5.85 10^6/uL Hemoglobin 10.4 L 13.3-17.7 G/DL Hematocrit 33 L 40-54 % Mean Corpuscular Volume 88 80-99 FL Mean Corpuscular Hemoglobin 28 25-34 PG Mean Corpuscular Hemoglobin Concent 31 L 32-36 G/DL Red Cell Distribution Width 17.1 H 10.0-14.5 % Platelet Count 223 130-400 10^3/uL Mean Platelet Volume 10.3 7.4-10.4 FL Neutrophils (%) (Auto) 66 42-75 % Lymphocytes (%) (Auto) 16 12-44 % Monocytes (%) (Auto) 9 0-12 % Eosinophils (%) (Auto) 9 0-10 % Basophils (%) (Auto) 1 0-10 % Neutrophils # (Auto) 5.4 1.8-7.8 X 10^3 Lymphocytes # (Auto) 1.3 1.0-4.0 X 10^3 Monocytes # (Auto) 0.7 0.0-1.0 X 10^3 Eosinophils # (Auto) 0.8 H 0.0-0.3 10^3/uL Basophils # (Auto) 0.1 0.0-0.1 10^3/uL Sodium Level 142 135-145 MMOL/L Potassium Level 4.5 3.6-5.0 MMOL/L Chloride Level 104 98-107 MMOL/L Carbon Dioxide Level 23 21-32 MMOL/L Anion Gap 15 H 5-14 MMOL/L Blood Urea Nitrogen 44 H 7-18 MG/DL Creatinine 11.64 H 0.60-1.30 MG/DL Estimat Glomerular Filtration Rate 6 BUN/Creatinine Ratio 4 Glucose Level 202 H 70-105 MG/DL Calcium Level 9.0 8.5-10.1 MG/DL My Orders Orders - HARDY HUERTA APRN Cbc With Automated Diff (01/17/19 20:09) Basic Metabolic Panel (01/17/19 20:09) Chest Pa/Lat (2 View) (01/17/19 20:09) Albuterol/Ipra Inhalation Soln (Duoneb I (01/17/19 20:15) Svn Small Volume Nebulizer (01/17/19 20:09) Medications Given in ED Vital Signs/I&O 01/17/19 01/17/19 01/17/19 19:55 20:16 23:13 Temp 36.8 37.0 Pulse 77 74 Resp 22 20 B/P (MAP) 166/84 (111) 146/74 (111) Pulse Ox 97 95 94 O2 Delivery Room Air Capillary Refill : Diagnostic Imaging Diagonstic Imaging: Xray Plain Films/CT/US/NM/MRI: chest Comments NAME: DIANA BRITOIOTT Jose MED REC#: [id number] PT STATUS: REG ER : 1970 PHYSICIAN: HARDY HUERTA APRN ADMIT DATE: 01/17/19/ER Draft POSDate of Exam:01/17/19 CHEST PA/LAT (2 VIEW) EXAM: CHEST PA/LAT (2 VIEW) INDICATION: Dyspnea. COMPARISON: CT chest 12/12/2018. FINDINGS: Large left pleural effusion appears mildly increased since 12/12/2018 allowing for differences in modality. Heart size is obscured. Interstitial prominence may represent interstitial edema. No pneumothorax. Right IJ CVC tip mid SVC. No acute osseous findings. IMPRESSION: 1. Large left pleural effusion has likely mildly progressed since the prior exam. 2. Mild interstitial opacities may represent a degree of interstitial edema. Dictated on workstation # [id number] Dict: 01/17/192046 Trans: 01/17/192051 [facility] [id number] Interpreted by: SAHIL DUDLEY MD Electronically signed by: Departure Communication (Admissions) Has a known moderate in size left pleural effusion. This was evaluated with a CT scan in December of this year. His last chest x-ray was October of this year. When comparing today's chest x-ray to October the left pleural effusion is much larger and now to the point causing symptoms today. He will need to be admitted for this, because of his requirements for hemodialysis he'll be transferred to a facility with these capabilities. 2154-spoke with Dr. Fay, hospitalist at [facility], accepted the patient in transfer. Impression Primary Impression: Pleural effusion, left Additional Impressions: Acute dyspnea End-stage renal disease on hemodialysis Metastatic renal cell carcinoma to lung Disposition: XFER SHT-TRM HOSP Condition: Stable Transfer Transfer Reason: Exceeds level of care Time Spoke to Accepting Phy: 20:54 Departure-Patient Inst. Referrals: [facility] (PCP) Primary Care Physician GALE SOLIZ (Family) Primary Care Physician HARDY HUERTA APRN Jan 17, 2019 20:12 POS
[2019-01-17] MEDS ORDERED: RT-ALBUTEROL/IPRATROPIUM 3 ML (DUONEB) VIAL INH ONE (20:15)
--- NOTE | 2019-01-17 20:52 | Diagnostic Imaging Report ---
EXAM: CHEST PA/LAT (2 VIEW) INDICATION: Dyspnea. COMPARISON: CT chest 12/12/2018. FINDINGS: Large left pleural effusion appears mildly increased since 12/12/2018 allowing for differences in modality. Heart size is obscured. Interstitial prominence may represent interstitial edema. No pneumothorax. Right IJ CVC tip mid SVC. No acute osseous findings. IMPRESSION: 1. Large left pleural effusion has likely mildly progressed since the prior exam. 2. Mild interstitial opacities may represent a degree of interstitial edema. Dictated by: Dictated on workstation # [id number]
[2019-01-17 21:08] LABS: BASOPHILS # (AUTO) 0.1 10^3/uL (0.0-0.1); BASOPHILS % (AUTO) 1 % (0-10); EOSINOPHILS # (AUTO) 0.8 10^3/uL (0.0-0.3); EOSINOPHILS % (AUTO) 9 % (0-10); HEMATOCRIT 33 % (40-54); HEMOGLOBIN 10.4 G/DL (13.3-17.7); LYMPHOCYTES # (AUTO) 1.3 X 10^3 (1.0-4.0); LYMPHOCYTES % (AUTO) 16 % (12-44); MEAN CORPUSCULAR HEMOGLOBIN 28 PG (25-34); MEAN CORPUSCULAR HGB CONC 31 G/DL (32-36); MEAN CORPUSCULAR VOLUME 88 FL (80-99); MEAN PLATELET VOLUME 10.3 FL (7.4-10.4); MONOCYTES # (AUTO) 0.7 X 10^3 (0.0-1.0); MONOCYTES % (AUTO) 9 % (0-12); NEUTROPHILS # (AUTO) 5.4 X 10^3 (1.8-7.8); NEUTROPHILS % (AUTO) 66 % (42-75); PLATELET COUNT 223 10^3/uL (130-400); RED CELL DISTRIBUTION WIDTH 17.1 % (10.0-14.5); WHITE BLOOD COUNT 8.2 10^3/uL (4.3-11.0)
[2019-01-17 21:22] LABS: CREATININE SERUM 11.64 MG/DL (0.60-1.30); POTASSIUM 4.5 MMOL/L (3.6-5.0)
[2019-01-17 23:13] VITALS: BP 146/74
== END 2019-01-17 23:13 | disposition short-term general hospital (02) ==
LOC: EDUNIT# 19:52 → ER 19:53
DX: J90 Pleural effusion, not elsewhere classified (principal); E11.22 Type 2 diabetes mellitus with diabetic chronic kidney disease; I12.0 Hypertensive chronic kidney disease with stage 5 chronic kidney disease or end stage renal disease; N18.6 End stage renal disease; C64.1 Malignant neoplasm of right kidney, except renal pelvis; C78.00 Secondary malignant neoplasm of unspecified lung; E78.00 Pure hypercholesterolemia, unspecified; J45.909 Unspecified asthma, uncomplicated; G43.909 Migraine, unspecified, not intractable, without status migrainosus; K21.9 Gastro-esophageal reflux disease without esophagitis; G47.30 Sleep apnea, unspecified; D64.9 Anemia, unspecified; Z99.89 Dependence on other enabling machines and devices; Z99.2 Dependence on renal dialysis; Z88.8 Allergy status to other drugs, medicaments and biological substances; Z79.82 Long term (current) use of aspirin; Z79.52 Long term (current) use of systemic steroids; Z79.4 Long term (current) use of insulin; Z90.5 Acquired absence of kidney; Z82.49 Family history of ischemic heart disease and other diseases of the circulatory system; Z80.8 Family history of malignant neoplasm of other organs or systems
CPT/HCPCS: 36415; 71046; 80048; 85025; 94640; 94760

== ENCOUNTER → 2019-02-07 | Outpatient (CLI) | payer MEDICARE, MEDICAID ==
--- NOTE | 2019-02-07 16:54 | Diagnostic Imaging Report ---
PROCEDURE: CT chest, abdomen, and pelvis without contrast. TECHNIQUE: Multiple contiguous axial images were obtained through the chest, abdomen, and pelvis without the use of intravenous contrast. Auto Exposure Controls were utilized during the CT exam to meet ALARA standards for radiation dose reduction. INDICATION: Kidney cancer metastatic to the lung. No current complaints. COMPARISON: The study compared with noncontrasted study of 12/12/2018. CHEST: Moderately large unilateral left-sided pleural effusion is unchanged. Passive atelectasis of the left lower lobe is a redemonstrated finding. Partial atelectasis of the dependent lingular segment of the left upper lobe perifissural is also unchanged. There is no pneumothorax. Stable subcentimeter right chest nodule interfissural along the minor fissure is likely an incidental intramammary lymph node. The right upper lobe nodule anteromedially significantly decreased in size is now about 4-5 mm, previously about 1 cm. No new or suspicious lung nodule in its adequately aerated portions. There is no right-sided pleural fluid. There is no pneumothorax. Predominantly subcentimeter perivascular superior mediastinal lymph nodes are unchanged. Subcarinal mediastinum is unremarkable. No obvious hilar adenopathy. No destructive bony lesion. ABDOMEN AND PELVIS: Perinephric stranding peripheral to the solitary left kidney is decreased. No hydroureteronephrosis. Unenhanced liver parenchyma is nonfocal. The spleen is unremarkable. There is no adrenal mass. The pancreas is unremarkable. The aorta is nonaneurysmal. Subcutaneous edema and infiltration as well as skin thickening at and below the level of the umbilicus has decreased. Midline infraumbilical hernia is also decreased. Mild bilateral inguinal lymphadenopathy unchanged. No bowel, biliary or urinary tract obstruction. No abscess or free air. IMPRESSION: CHEST: Right upper lobe nodule is decreased. There is unchanged left pleural effusion and mild mediastinal adenopathy. ABDOMEN AND PELVIS: Reduction in subcutaneous infiltration and infraumbilical hernia. Stable mild inguinal adenopathy. Reduction in left perinephric stranding. No adverse development. Dictated by: Dictated on workstation # [id number]
== END ==
LOC: RAD 15:53
PROVIDERS: ATTEND Internal Medicine Hematology & Oncology
DX: C64.1 Malignant neoplasm of right kidney, except renal pelvis (principal); C78.02 Secondary malignant neoplasm of left lung; J90 Pleural effusion, not elsewhere classified; K42.9 Umbilical hernia without obstruction or gangrene; L98.6 Other infiltrative disorders of the skin and subcutaneous tissue; R59.0 Localized enlarged lymph nodes
CPT/HCPCS: 71250; 74176

== ENCOUNTER 2019-02-27 20:15 | Emergency (ER) | payer MEDICARE, MEDICAID ==
[~2019-02-27] VITALS: Ht 177 cm; Wt 126.9 kg
[~2019-02-27 20:15] MED LIST changes: -GLIM1TAB PO; +GLIM1TAB2 PO; -GLIM2TAB PO; +GLIM2TAB2 PO
--- NOTE | 2019-02-27 20:38 | ED General ---
General Stated Complaint: FEVER CHILLS ABD PAIN Source of Information: Patient Exam Limitations: No Limitations History of Present Illness Date Seen by Provider: Feb 27, 2019 Time Seen by Provider: 20:20 Initial Comments This 48-year-old -Wallis[place] male IDDM with history of ESRD on HD 5 days a week at home and on oral chemotherapy with Sutent for treatment (along with remote history of nephrectomy) of right renal cell carcinoma presents to ER with several days of general malaise, not feeling well, fever up to 100.7 maximum and suprapubic abdominal pain. Denies any changes in bowel, denies any cough runny nose or sore throat. Denies any urinary symptoms though he is oliguric per baseline. 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 Tao at [facility] Timing/Duration: 3-4 Days Severity: Moderate Associated Systoms: Weakness Allergies and Home Medications Allergies Coded Allergies: fluticasone (Verified Allergy, Unknown, asthma attack, 11/23/17) salmeterol (Verified Allergy, Unknown, asthma attack, 11/23/17) Home Medications Albuterol Sulfate 6.7 Gm Hfa.aer.ad, 2 PUFF IH QID PRN for SHORTNESS OF BREATH, (Reported) Albuterol Sulfate 2.5 Mg/3 Ml Vial.neb, 2.5 MG IH QID PRN for WHEEZING, (Reported) Amlodipine Besylate 5 Mg Tablet, 5 MG PO DAILY, (Reported) Aspirin 81 Mg Tab.chew, 81 MG PO HS, (Reported) Calcitriol 0.5 Mcg Capsule, 0.5 MCG PO DAILY, (Reported) Capsaicin 42.5 Gm Cream..g., 3 GM TP Q6H PRN for PAIN-MODERATE Prescribed by: JUNAID OJEDA on 12/12/182129 Cinacalcet HCl 30 Mg Tablet, 30 MG PO DAILY@1800, (Reported) Ciprofloxacin HCl 250 Mg Tablet, 250 MG PO BID Prescribed by: HARDY HUERTA on 02/27/192216 Clonidine HCl 0.1 Mg Tablet, 0.1 MG PO TID, (Reported) take this dose during week off of sutent Clonidine HCl 0.2 Mg Tablet, 0.2 MG PO TID, (Reported) take this dose during sutent treatment Doxycycline Hyclate 100 Mg Tablet, 100 MG PO BID Prescribed by: LEEANNA YIP on 12/04/18117 Famotidine 20 Mg Tablet, 20 MG PO BID, (Reported) Fluticasone/Vilanterol 1 Each Blst.w.dev, 1 EACH IH DAILY, (Reported) Furosemide 80 Mg Tablet, 160 MG PO DAILY, (Reported) take 2 (80mg) tabs Furosemide 80 Mg Tablet, 80 MG PO DAILY@1200, (Reported) Gabapentin 300 Mg Capsule, 300 MG PO Q8H PRN for pain Prescribed by: JUNAID OJEDA on 12/12/180 Glimepiride 1 Mg Tablet, 0.5 MG PO DAILY, (Reported) Glimepiride 2 Mg Tablet, 2 MG PO DAILY, (Reported) Hydrocodone Bit/Acetaminophen 1 Tab Tab, 1 EACH PO Q4-6HR PRN for PAIN-MODERATE Prescribed by: LEEANNA YIP on 12/04/18117 Hydrocodone/Acetaminophen 1 Each Tablet, 1 EACH PO Q4H PRN for PAIN-MODERATE Prescribed by: CEE ROSENBERG on 11/29/17 0853 Insulin Aspart 300 Units/3 Ml Solution, 15-30 UNITS SQ AC, (Reported) sliding scale Insulin Glargine,Hum.rec.anlog 300 Unit/1 Ml Insuln.pen, 25 UNIT SQ DAILY, (Reported) Ipratropium/Albuterol Sulfate 3 Ml Ampul.neb, 3 ML IH QID PRN for SHORTNESS OF BREATH, (Reported) Metoprolol Tartrate 100 Mg Tablet, 100 MG PO BID, (Reported) Metronidazole 500 Mg Tablet, 500 MG PO TID Prescribed by: HARDY HUERTA on 02/27/192216 Minoxidil 10 Mg Tab, 20 MG PO BID, (Reported) take 2 (10mg) tabs Montelukast Sodium 10 Mg Tablet, 10 MG PO HS, (Reported) Oxycodone HCl 30 Mg Tablet, 30 MG PO Q6H PRN for PAIN-MILD TO MODERATE, (Report ed) Spironolactone 50 Mg Tablet, 50 MG PO DAILY@1200, (Reported) Sunitinib Malate 50 Mg Capsule, 50 MG PO DAILY, (Reported) take for 2 weeks then hold for 1 week then repeat Temazepam 30 Mg Capsule, 30 MG PO HS, (Reported) Valacyclovir HCl 1,000 Mg Tablet, 1,000 MG PO TID Prescribed by: JUNAID OJEDA on 12/12/182129 Patient Home Medication List Home Medication List Reviewed: Yes Review of Systems Review of Systems Constitutional: see HPI, chills, malaise EENTM: see HPI Respiratory: no symptoms reported Cardiovascular: no symptoms reported Gastrointestinal: abdominal pain Genitourinary: no symptoms reported Musculoskeletal: no symptoms reported Skin: no symptoms reported Psychiatric/Neurological: No Symptoms Reported Past Tvkmsjm-Wkqwik-Aorawp Hx Patient Social History 2nd Hand Smoke Exposure: No Recent Foreign Travel: No Contact w/Someone Who Travel: No Recent Hopitalizations: No Immunizations Up To Date Tetanus Booster (TDap): Unknown PED Vaccines UTD: No Date of Pneumonia Vaccine: Nov 07, 2015 Date of Influenza Vaccine: Oct 31, 2018 Seasonal Allergies Seasonal Allergies: Yes Past Medical History Surgeries: Yes (HERNIA REPAIR, R MENISCUS REPAIR x2, dialysis port R K IDNEY RENIAVAK ) Abdominal, Nephrectomy, Orthopedic Respiratory: Yes (ASTHMA, STABLE LUNG MASS,) Asthma, Sleep Apnea Currently Using CPAP: Yes Currently Using BIPAP: No Cardiac: Yes High Cholesterol, Hypertension Neurological: Yes Headaches /Migraines Reproductive Disorders: No Sexually Transmitted Disease: No HIV/AIDS: No Genitourinary: Yes Renal Failure, Dialysis Gastrointestinal: Yes (TAKES PEPCID NEEDED) Gastroesophageal Reflux Musculoskeletal: Yes (MENISCUS TEAR Left KNEE) Arthritis, Chronic Back Pain Endocrine: Yes (STARTED DIALYSIS IN NOVEMBER 2015) Diabetes, Insulin dep Loss of Vision: Bilateral Hearing Impairment: Denies Cancer: Yes (PATIENT BEING MONITORED BY DR. LINDER FOR LUNG AND RENAL MASSES) Kidney Did You Recieve Any Treatments: Yes What Type of Treatment Did You: Chemotherapy Psychosocial: No Integumentary: No Blood Disorders: Yes (ANEMIA) Adverse Reaction/Blood Tranf: No (N/A) Family Medical History Arthritis 19 MOTHER (grandmother) Asthma 19 MOTHER (grandmother) Cancer of mouth 19 MOTHER (throat) Hypertension 19 MOTHER (grandmother) Respiratory disorder 19 MOTHER (grandmother) Seizure disorder 19 MOTHER (aunt) Thyroid disease 19 MOTHER (aunt) No Family History of: AIDS Abdominal aortic aneurysm [place]'s disease Alcoholism Alzheimer's disease Cardiovascular disease Cataracts Colon cancer Completed stroke Congenital disease Congenital heart disease Coronary thrombosis Cystic fibrosis Deafness or hearing loss Dementia Diabetes mellitus Drug abuse Dysphasia Fibrocystic disease of breast Gastroenteritis Glaucoma Headache disorder Hypercholesterolemia Infertility Kidney disease Myocardial infarction Neoplasm Osteoporosis Parkinson's disease Severe allergy Tuberculosis Visual disorder Physical Exam Vital Signs Vital Signs - First Documented 02/27/19 20:20 Temp 37.6 Pulse 86 Resp 14 B/P (MAP) 149/67 (94) Pulse Ox 95 O2 Delivery Room Air Capillary Refill : Height, Weight, BMI Height: 5'10.00" Weight: 277lbs. 0.0oz. 125.971909lt; 40.00 BMI Method:Stated General Appearance: No Apparent Distress, WD/WN, Other (right subclavian dialysis catheter) Eyes: Bilateral Eye Normal Inspection, Bilateral Eye PERRL, Bilateral Eye EOMI HEENT: PERRL/EOMI, TMs Normal Neck: Full Range of Motion, Normal Inspection Respiratory: No Accessory Muscle Use, No Respiratory Distress Cardiovascular: Regular Rate, Rhythm, Normal Peripheral Pulses Gastrointestinal: Normal Bowel Sounds, Soft, Tenderness Neurologic/Psychiatric: Alert, Oriented x3 Skin: Normal Color, Warm/Dry Focused Exam Lactate Level 02/27/19 20:30: Lactic Acid Level 1.04 Lactic Acid Level Laboratory Tests Test 02/27/19 20:30 Lactic Acid Level 1.04 MMOL/L (0.50-2.00) Progress/Results/Core Measures Suspected Sepsis SIRS Temperature: Pulse: Respiratory Rate: Laboratory Tests 02/27/19 20:30: White Blood Count 8.2 Blood Pressure / Mean: 02/27/19 20:30: Lactic Acid Level 1.04 Laboratory Tests 02/27/19 20:30: Creatinine 13.04H, Platelet Count 185, Total Bilirubin 0.5 Results/Orders Lab Results Laboratory Tests Test 02/27/19 20:30 Range/Units White Blood Count 8.2 4.3-11.0 10^3/uL Red Blood Count 4.03 L 4.35-5.85 10^6/uL Hemoglobin 10.8 L 13.3-17.7 G/DL Hematocrit 34 L 40-54 % Mean Corpuscular Volume 85 80-99 FL Mean Corpuscular Hemoglobin 27 25-34 PG Mean Corpuscular Hemoglobin Concent 32 32-36 G/DL Red Cell Distribution Width 15.1 H 10.0-14.5 % Platelet Count 185 130-400 10^3/uL Mean Platelet Volume 11.2 H 7.4-10.4 FL Neutrophils (%) (Auto) 63 42-75 % Lymphocytes (%) (Auto) 17 12-44 % Monocytes (%) (Auto) 13 H 0-12 % Eosinophils (%) (Auto) 7 0-10 % Basophils (%) (Auto) 0 0-10 % Neutrophils # (Auto) 5.1 1.8-7.8 X 10^3 Lymphocytes # (Auto) 1.4 1.0-4.0 X 10^3 Monocytes # (Auto) 1.0 0.0-1.0 X 10^3 Eosinophils # (Auto) 0.6 H 0.0-0.3 10^3/uL Basophils # (Auto) 0.0 0.0-0.1 10^3/uL Sodium Level 141 135-145 MMOL/L Potassium Level 4.2 3.6-5.0 MMOL/L Chloride Level 102 98-107 MMOL/L Carbon Dioxide Level 24 21-32 MMOL/L Anion Gap 15 H 5-14 MMOL/L Blood Urea Nitrogen 50 H 7-18 MG/DL Creatinine 13.04 H 0.60-1.30 MG/DL Estimat Glomerular Filtration Rate 5 BUN/Creatinine Ratio 4 Glucose Level 161 H 70-105 MG/DL Lactic Acid Level 1.04 0.50-2.00 MMOL/L Calcium Level 9.2 8.5-10.1 MG/DL Corrected Calcium 9.2 8.5-10.1 MG/DL Total Bilirubin 0.5 0.1-1.0 MG/DL Aspartate Amino Transf (AST/SGOT) 11 5-34 U/L Alanine Aminotransferase (ALT/SGPT) 9 0-55 U/L Alkaline Phosphatase 68 40-136 U/L Total Protein 7.0 6.4-8.2 GM/DL Albumin 4.0 3.2-4.5 GM/DL Micro Results Microbiology 02/27/19 Influenza Types A,B Antigen (ANKIT) - Final, Complete My Orders Orders - HARDY HUERTA [employer] Cbc With Automated Diff (02/27/19 20:26) Comprehensive Metabolic Panel (02/27/19 20:26) Ua Culture If Indicated (02/27/19 20:26) Ed Iv/Invasive Line Start (02/27/19 20:26) Chest Pa/Lat (2 View) (02/27/19 20:26) Ct Abdomen/Pelvis W (1/22/20 20:26) Influenza A And B Antigens (02/27/19 20:26) Blood Culture (02/27/19 20:26) Lactic Acid Analyzer (02/27/19 20:26) Iohexol Injection (Omnipaque 350 Mg/Ml 1 (02/27/19 21:30) Received Contrast (Hold Metformin- Contr (02/27/19 21:30) Ns (Ivpb) (Sodium Chloride 0.9% Ivpb Bag (02/27/19 21:30) Levofloxacin Tablet (Levaquin Tablet) (02/27/19 22:15) Metronidazole Tablet (Flagyl Tablet) (02/27/19 22:15) Medications Given in ED Current Medications Medications Dose Ordered Sig/Hina Route Start Time Stop Time Status Last Admin Dose Admin Iohexol 100 ml ONCE ONCE IV 02/27/19 21:30 02/27/19 21:31 DC 02/27/19 21:33 75 ML Sodium Chloride 100 ml ONCE ONCE IV 02/27/19 21:30 02/27/19 21:31 DC 02/27/19 21:33 80 ML Vital Signs/I&O 02/27/19 20:20 Temp 37.6 Pulse 86 Resp 14 B/P (MAP) 149/67 (94) Pulse Ox 95 O2 Delivery Room Air Capillary Refill : Diagnostic Imaging Diagonstic Imaging: CT Comments NAME: CYNDEE BRITO MED REC#: [id number] PT STATUS: REG ER : 1970 PHYSICIAN: HARDY HUERTA [employer] ADMIT DATE: 02/27/19/ER Draft Date of Exam:02/27/19 CHEST PA/LAT (2 VIEW) CHEST PA/LAT (2 VIEW) INDICATION: Fever with pleural effusion. COMPARISON: 01/17/2019 FINDINGS: Stable right IJ dual-lumen hemodialysis catheter. Large left pleural effusion is unchanged. Confluent consolidations left lung base are similar as well. No pneumothorax. Grossly stable cardiomediastinal silhouette of which left heart border is obscured by large effusion and consolidations. IMPRESSION: Stable exam since 01/17/2019 with a large left pleural effusion and associated pulmonary consolidations. This may represent relaxation atelectasis, pneumonia or underlying neoplasm. Dictated on workstation # [id number] Dict: 02/27/192136 Trans: 02/27/192142 [id number] Interpreted by: HANK PHILLIPS MD Electronically signed by: NAME: CYNDEE BRITO [facility] REC#: [id number] PT STATUS: REG ER : 1970 PHYSICIAN: HARDY HUERTA [employer] ADMIT DATE: 02/27/19/ER Draft Date of Exam:02/27/19 CT ABDOMEN/PELVIS W CT ABDOMEN/PELVIS W TECHNIQUE: Multiple contiguous axial images were obtained through the abdomen and pelvis after administration of intravenous contrast. All CT scans use one or more of the following dose optimizing techniques: automated exposure control, MA and/or KvP adjustment based on a patient size and exam type, or iterative reconstruction. INDICATION: Abdominal pain and diarrhea. COMPARISON: 02/07/2019 FINDINGS: Lower chest: Persistent moderate to large left pleural effusion with associated left basilar consolidations. Peritoneum: No free intraperitoneal air or loculated effusions. Trace free fluid around the liver. Liver and biliary system: The liver is normal. Gallbladder wall thickening and/or pericholecystic fluid is present. Spleen and Pancreas: Spleen is normal. The pancreas enhances normally without mass lesion or peripancreatic inflammatory changes. Adrenals: Normal. tract: Left kidney has mild delayed enhancement but no mass. Right nephrectomy has been performed. Urinary bladder is decompressed, limiting assessment. GI tract: Stomach is partially filled with fluid and food debris and there is no wall thickening. No bowel obstruction. Marked abnormal low-attenuation wall thickening throughout the colon which now has surrounding induration in the pericolonic fat indicative of acute on chronic colitis. No pneumatosis. The appendix is normal. Vasculature and Lymph nodes: Normal caliber abdominal aorta. There are few borderline enlarged inguinal lymph nodes which are stable since prior exam. Musculoskeletal: Skin thickening and subcutaneous induration in the abdominal wall has not substantially changed. Ventral periumbilical hernia is similar in appearance. IMPRESSION: 1. Acute on chronic brown colitis is likely infectious in etiology. 2. Gallbladder wall thickening versus pericholecystic fluid could relate to acute cholecystitis or be reactive in nature due to colitis. 3. Stable panniculitis. Dictated on workstation # [id number] Dict: 02/27/192150 Trans: 02/27/192156 [id number] Interpreted by: HANK PHILLIPS MD Electronically signed by: Departure Communication (Admissions) 28/03/14-I spoke with Dr. Merrill from surgery here, recommends Cipro Flagyl close follow-up with oncology, I also spoke with Dr. Steiner from oncology at [facility] (patient follows oncology here), also agrees with outpatient therapy with oral Cipro Flagyl. Impression Primary Impression: Pancolitis Disposition: HOME, SELF-CARE Condition: Stable Departure-Patient Inst. Decision time for Depature: 22:03 Referrals: [facility] (PCP) Primary Care Physician GALE SOLIZ (Family) Primary Care Physician Patient Instructions: Colitis (DC) Add. Discharge Instructions: 1. Return to ER for any concerns such as persistent fever, nausea vomiting or bloody diarrhea. 2. Follow-up with your doctor. Call tomorrow to make an appointment to be seen this week. 3. Scripts Metronidazole (Flagyl) 500 Mg Tablet 500 MG PO TID, #21 TAB Prov: HARDY HUERTA [employer] 02/27/19 Ciprofloxacin HCl (Cipro) 250 Mg Tablet 250 MG PO BID, #14 TAB Prov: HARDY HUERTA [employer] 02/27/19 HARDY HUERTA [employer] Feb 27, 2019 20:38
[2019-02-27 20:43] LABS: BASOPHILS % (AUTO) 0 % (0-10); EOSINOPHILS # (AUTO) 0.6 10^3/uL (0.0-0.3); EOSINOPHILS % (AUTO) 7 % (0-10); HEMATOCRIT 34 % (40-54); HEMOGLOBIN 10.8 G/DL (13.3-17.7); LYMPHOCYTES # (AUTO) 1.4 X 10^3 (1.0-4.0); LYMPHOCYTES % (AUTO) 17 % (12-44); MEAN CORPUSCULAR HEMOGLOBIN 27 PG (25-34); MEAN CORPUSCULAR HGB CONC 32 G/DL (32-36); MEAN CORPUSCULAR VOLUME 85 FL (80-99); MEAN PLATELET VOLUME 11.2 FL (7.4-10.4); MONOCYTES % (AUTO) 13 % (0-12); NEUTROPHILS # (AUTO) 5.1 X 10^3 (1.8-7.8); NEUTROPHILS % (AUTO) 63 % (42-75); PLATELET COUNT 185 10^3/uL (130-400); RED CELL DISTRIBUTION WIDTH 15.1 % (10.0-14.5); WHITE BLOOD COUNT 8.2 10^3/uL (4.3-11.0)
[2019-02-27 21:07] LABS: BILIRUBIN,TOTAL 0.5 MG/DL (0.1-1.0); CALCIUM 9.2 MG/DL (8.5-10.1); CREATININE SERUM 13.04 MG/DL (0.60-1.30); POTASSIUM 4.2 MMOL/L (3.6-5.0)
[2019-02-27] MEDS ORDERED: IOHEXOL 350 MG/ML 100 ML (OMNIPAQUE 350) VIAL IV ONE (21:30)
[2019-02-27] MEDS ORDERED: HOLD METFORMIN - RECEIVED CONTRAST 20 ML VIAL IV SCH (21:30)
[2019-02-27] MEDS ORDERED: NS 100 ML (IVPB) BAG IV ONE (21:30)
--- NOTE | 2019-02-27 21:43 | Diagnostic Imaging Report ---
CHEST PA/LAT (2 VIEW) INDICATION: Fever with pleural effusion. COMPARISON: 01/17/2019 FINDINGS: Stable right IJ dual-lumen hemodialysis catheter. Large left pleural effusion is unchanged. Confluent consolidations left lung base are similar as well. No pneumothorax. Grossly stable cardiomediastinal silhouette of which left heart border is obscured by large effusion and consolidations. IMPRESSION: Stable exam since 01/17/2019 with a large left pleural effusion and associated pulmonary consolidations. This may represent relaxation atelectasis, pneumonia or underlying neoplasm. Dictated by: Dictated on workstation # [id number]
--- NOTE | 2019-02-27 21:58 | Diagnostic Imaging Report ---
CT ABDOMEN/PELVIS W TECHNIQUE: Multiple contiguous axial images were obtained through the abdomen and pelvis after administration of intravenous contrast. All CT scans use one or more of the following dose optimizing techniques: automated exposure control, MA and/or KvP adjustment based on a patient size and exam type, or iterative reconstruction. INDICATION: Abdominal pain and diarrhea. COMPARISON: 02/07/2019 FINDINGS: Lower chest: Persistent moderate to large left pleural effusion with associated left basilar consolidations. Peritoneum: No free intraperitoneal air or loculated effusions. Trace free fluid around the liver. Liver and biliary system: The liver is normal. Gallbladder wall thickening and/or pericholecystic fluid is present. Spleen and Pancreas: Spleen is normal. The pancreas enhances normally without mass lesion or peripancreatic inflammatory changes. Adrenals: Normal. tract: Left kidney has mild delayed enhancement but no mass. Right nephrectomy has been performed. Urinary bladder is decompressed, limiting assessment. GI tract: Stomach is partially filled with fluid and food debris and there is no wall thickening. No bowel obstruction. Marked abnormal low-attenuation wall thickening throughout the colon which now has surrounding induration in the pericolonic fat indicative of acute on chronic colitis. No pneumatosis. The appendix is normal. Vasculature and Lymph nodes: Normal caliber abdominal aorta. There are few borderline enlarged inguinal lymph nodes which are stable since prior exam. Musculoskeletal: Skin thickening and subcutaneous induration in the abdominal wall has not substantially changed. Ventral periumbilical hernia is similar in appearance. IMPRESSION: 1. Acute on chronic brown colitis is likely infectious in etiology. 2. Gallbladder wall thickening versus pericholecystic fluid could relate to acute cholecystitis or be reactive in nature due to colitis. 3. Stable panniculitis. Dictated by: Dictated on workstation # [id number]
[2019-02-27] MEDS ORDERED: LEVOFLOXACIN 500 MG TAB (LEVAQUIN) PO ONE (22:15)
[2019-02-27] MEDS ORDERED: metroNIDAZOLE 500 MG (FLAGYL) TAB PO ONE (22:15)
[2019-02-27] MEDS ORDERED: METR500T PO (22:17)
[2019-02-27] MEDS ORDERED: CIPR-226 PO (22:17)
[2019-02-27 22:30] VITALS: BP 149/75
== END 2019-02-27 22:30 | disposition home or self-care (01) ==
LOC: EDUNIT# 20:15 → ER 20:16
DX: K51.00 Ulcerative (chronic) pancolitis without complications (principal); E11.22 Type 2 diabetes mellitus with diabetic chronic kidney disease; I12.0 Hypertensive chronic kidney disease with stage 5 chronic kidney disease or end stage renal disease; N18.6 End stage renal disease; J45.909 Unspecified asthma, uncomplicated; G43.909 Migraine, unspecified, not intractable, without status migrainosus; G47.30 Sleep apnea, unspecified; K21.9 Gastro-esophageal reflux disease without esophagitis; D64.9 Anemia, unspecified; Z99.89 Dependence on other enabling machines and devices; Z99.2 Dependence on renal dialysis; Z90.5 Acquired absence of kidney; Z88.8 Allergy status to other drugs, medicaments and biological substances; Z85.528 Personal history of other malignant neoplasm of kidney; Z79.82 Long term (current) use of aspirin; Z79.51 Long term (current) use of inhaled steroids; Z79.4 Long term (current) use of insulin; Z82.49 Family history of ischemic heart disease and other diseases of the circulatory system; Z80.8 Family history of malignant neoplasm of other organs or systems
CPT/HCPCS: 36415; 71046; 74177; 80053; 83605; 85025; 87040; 87804

== ENCOUNTER 2019-04-26 08:58 | Outpatient (RCR) | payer MEDICARE, MEDICAID ==
[~2019-04-26 08:58] MED LIST changes: +CIPR-226 PO; -GLIM1TAB2 PO; +GLIM1TAB4 PO; -GLIM2TAB2 PO; +GLIM2TAB4 PO; +HYDR-34 PO; -HYDR-3816 PO; +METR500T PO; +MONT10TA26 PO; +OXYC-527 PO; -OXYC30TA80 PO; -VALA1000 PO; +VALA10007 PO
== END 2019-07-22 | disposition home or self-care (01) ==
PROVIDERS: ATTEND Orthopaedic Surgery
DX: M25.562 Pain in left knee (principal); C79.51 Secondary malignant neoplasm of bone; C64.9 Malignant neoplasm of unspecified kidney, except renal pelvis

== ENCOUNTER 2019-05-15 07:54 | Outpatient (RCR) | payer MEDICARE, MEDICAID | END 2019-07-23 | disposition home or self-care (01) | LOC: ONC 07:54 | PROVIDERS: ATTEND Radiology Radiation Oncology | DX: Z51.0 Encounter for antineoplastic radiation therapy (principal); C79.51 Secondary malignant neoplasm of bone; C64.9 Malignant neoplasm of unspecified kidney, except renal pelvis | CPT/HCPCS: 77290; 77295; 77300; 77334 ×2; G0463; 77336; 77417; 99205 ==

== ENCOUNTER 2019-05-20 20:32 | Emergency (ER) | payer MEDICARE, MEDICAID ==
[~2019-05-20] VITALS: Ht 177 cm; Wt 126.9 kg
[2019-05-20] MEDS ORDERED: HYDROcodone/APAP 7.5 MG/325 MG (LORTAB, LORCET PLUS) TABLET PO ONE (21:00)
--- NOTE | 2019-05-20 21:01 | ED Lower Extremity ---
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 Has been doing radiation, chemo every 23 days, and progressing his activity. Today he noted a pop and increased pain in his left knee, when he stood up from his desk. He began using his crutches again. He can't tolerate weight bearing to his left knee. Chronic Lymphadenopathy to left LE. Onset: this afternoon Pain/Injury Location: left knee Method of Injury: unknown Allergies and Home Medications Allergies Coded Allergies: fluticasone (Verified Allergy, Unknown, asthma attack, 11/23/17) salmeterol (Verified Allergy, Unknown, asthma attack, 11/23/17) Home Medications Albuterol Sulfate 6.7 Gm Hfa.aer.ad, 2 PUFF IH QID PRN for SHORTNESS OF BREATH, (Reported) Albuterol Sulfate 2.5 Mg/3 Ml Vial.neb, 2.5 MG IH QID PRN for WHEEZING, (Reported) Amlodipine Besylate 5 Mg Tablet, 5 MG PO DAILY, (Reported) Aspirin 81 Mg Tab.chew, 81 MG PO HS, (Reported) Calcitriol 0.5 Mcg Capsule, 0.5 MCG PO DAILY, (Reported) Capsaicin 42.5 Gm Cream..g., 3 GM TP Q6H PRN for PAIN-MODERATE Prescribed by: JUNAID OJEDA on 12/12/182129 Cinacalcet HCl 30 Mg Tablet, 30 MG PO DAILY@1800, (Reported) Ciprofloxacin HCl 250 Mg Tablet, 250 MG PO BID Prescribed by: HARDY HUERTA on 02/27/192216 Clonidine HCl 0.1 Mg Tablet, 0.1 MG PO TID, (Reported) take this dose during week off of sutent Clonidine HCl 0.2 Mg Tablet, 0.2 MG PO TID, (Reported) take this dose during sutent treatment Doxycycline Hyclate 100 Mg Tablet, 100 MG PO BID Prescribed by: LEEANNA YIP on 12/04/18 0118 Famotidine 20 Mg Tablet, 20 MG PO BID, (Reported) Fluticasone/Vilanterol 1 Each Blst.w.dev, 1 EACH IH DAILY, (Reported) Furosemide 80 Mg Tablet, 160 MG PO DAILY, (Reported) take 2 (80mg) tabs Furosemide 80 Mg Tablet, 80 MG PO DAILY@1200, (Reported) Gabapentin 300 Mg Capsule, 300 MG PO Q8H PRN for pain Prescribed by: JUNAID OJEDA on 12/12/182129 Glimepiride 1 Mg Tablet, 0.5 MG PO DAILY, (Reported) Glimepiride 2 Mg Tablet, 2 MG PO DAILY, (Reported) Hydrocodone Bit/Acetaminophen 1 Each Tablet, 1 EACH PO Q4H PRN for PAIN-MODERATE Prescribed by: CEE ROSENBERG on 11/29/17 0853 Hydrocodone Bit/Acetaminophen 1 Tab Tab, 1 EACH PO Q4-6HR PRN for PAIN-MODERATE Prescribed by: LEEANNA YIP on 12/04/18 0118 Insulin Aspart 300 Units/3 Ml Solution, 15-30 UNITS SQ AC, (Reported) sliding scale Insulin Glargine,Hum.rec.anlog 300 Unit/1 Ml Insuln.pen, 25 UNIT SQ DAILY, (Reported) Ipratropium/Albuterol Sulfate 3 Ml Ampul.neb, 3 ML IH QID PRN for SHORTNESS OF BREATH, (Reported) Metoprolol Tartrate 100 Mg Tablet, 100 MG PO BID, (Reported) Metronidazole 500 Mg Tablet, 500 MG PO TID Prescribed by: HARDY HUERTA on 02/27/192216 Minoxidil 10 Mg Tab, 20 MG PO BID, (Reported) take 2 (10mg) tabs Montelukast Sodium 10 Mg Tablet, 10 MG PO HS, (Reported) Oxycodone HCl 30 Mg Tablet, 30 MG PO Q6H PRN for PAIN-MILD TO MODERATE, (Reported) Spironolactone 50 Mg Tablet, 50 MG PO DAILY@1200, (Reported) Sunitinib Malate 50 Mg Capsule, 50 MG PO DAILY, (Reported) take for 2 weeks then hold for 1 week then repeat Temazepam 30 Mg Capsule, 30 MG PO HS, (Reported) Valacyclovir HCl 1,000 Mg Tablet, 1,000 MG PO TID Prescribed by: JUNAID OJEDA on 12/12/182129 Patient Home Medication List Home Medication List Reviewed: Yes Review of Systems Constitutional: no symptoms reported, see HPI Musculoskeletal: see HPI, joint pain (left knee), joint swelling All Other Systems Reviewed Negative Unless Noted: Yes Past Kayfqte-Iwwhjk-Exxcpu Hx Past Med/Social Hx: Reviewed Nursing Past Med/Soc Hx Patient Social History Alcohol Use: Denies Use Recreational Drug Use: No Smoking Status: Never a Smoker 2nd Hand Smoke Exposure: No Recent Foreign Travel: No Contact w/Someone Who Travel: No Recent Hopitalizations: No Immunizations Up To Date Tetanus Booster (TDap): Unknown PED Vaccines UTD: No Date of Pneumonia Vaccine: Nov 07, 2015 Date of Influenza Vaccine: Oct 31, 2018 Seasonal Allergies Seasonal Allergies: Yes Past Medical History Surgeries: Yes (HERNIA REPAIR, R MENISCUS REPAIR x2, dialysis port R K IDNEY RENIAVAK ) Abdominal, Nephrectomy, Orthopedic Respiratory: Yes (ASTHMA, STABLE LUNG MASS,) Asthma, Sleep Apnea Currently Using CPAP: Yes Currently Using BIPAP: No Cardiac: Yes High Cholesterol, Hypertension Neurological: Yes Headaches /Migraines Reproductive Disorders: No Sexually Transmitted Disease: No HIV/AIDS: No Genitourinary: Yes (right kidney cancer, kidney removed) Renal Failure, Dialysis Gastrointestinal: Yes (TAKES PEPCID NEEDED) Gastroesophageal Reflux Musculoskeletal: Yes (MENISCUS TEAR Left KNEE) Arthritis, Chronic Back Pain Endocrine: Yes (STARTED DIALYSIS IN NOVEMBER 2015) Diabetes, Insulin dep Loss of Vision: Bilateral Hearing Impairment: Denies Cancer: Yes (PATIENT BEING MONITORED BY DR. LINDER FOR LUNG AND RENAL MASSES) Kidney Did You Recieve Any Treatments: Yes What Type of Treatment Did You: Chemotherapy, Surgical Intervention Psychosocial: No Integumentary: No Blood Disorders: Yes (ANEMIA) Adverse Reaction/Blood Tranf: No (N/A) Family Medical History Arthritis 19 MOTHER (grandmother) Asthma 19 MOTHER (grandmother) Cancer of mouth 19 MOTHER (throat) Hypertension 19 MOTHER (grandmother) Respiratory disorder 19 MOTHER (grandmother) Seizure disorder 19 MOTHER (aunt) Thyroid disease 19 MOTHER (aunt) No Family History of: AIDS Abdominal aortic aneurysm Jaspreet's disease Alcoholism Alzheimer's disease Cardiovascular disease Cataracts Colon cancer Completed stroke Congenital disease Congenital heart disease Coronary thrombosis Cystic fibrosis Deafness or hearing loss Dementia Diabetes mellitus Drug abuse Dysphasia Fibrocystic disease of breast Gastroenteritis Glaucoma Headache disorder Hypercholesterolemia Infertility Kidney disease Myocardial infarction Neoplasm Osteoporosis Parkinson's disease Severe allergy Tuberculosis Visual disorder Physical Exam Vital Signs Capillary Refill : Height, Weight, BMI Height: 5'10.00" Weight: 277lbs. 0.0oz. [id number]; 40.00 BMI Method:Stated General Appearance: WD/WN, no apparent distress Cardiovascular: normal peripheral pulses, regular rate, rhythm Respiratory: chest non-tender, lungs clear, normal breath sounds Legs: bilateral leg swelling (Left > Right lymphadenopthy) Knees: left knee normal range of motion (with pain at endpoints), left knee bone tenderness (medial femur), left knee joint effusion, left knee soft tissue tenderness, left knee swelling, left knee other (No instability) Neurologic/Tendon: normal sensation, normal motor functions, normal tendon functions Neurologic/Psychiatric: no motor/sensory deficits, alert, normal mood/affect, oriented x 3 Progress/Results/Core Measures Results/Orders My Orders Orders - GAYLA PEGUERO Hydrocodone/Apap 7.5/325 Tab (Lortab 7. (05/20/19 21:00) Knee, Left, 3 Views (05/20/19 21:03) Medications Given in ED Current Medications Medications Dose Ordered Sig/Hina Route Start Time Stop Time Status Last Admin Dose Admin Acetaminophen/ Hydrocodone Bitart 1 ea ONCE ONCE PO 05/20/19 21:00 05/20/19 21:01 DC 05/20/19 20:59 1 EA Diagnostic Imaging Diagonstic Imaging: Xray Plain Films/CT/US/NM/MRI: knee Comments NAME: CYNDEE BRITO Jose MED REC#: [id number] PT STATUS: REG ER : 1970 PHYSICIAN: GAYLA PEGUERO ADMIT DATE: 05/20/19/ER Signed Date of Exam:05/20/19 KNEE, LEFT, 3 VIEWS CLINICAL INDICATION: Patient with history of bone cancer. Patient states biopsy of distal femur last month. Today states he is unable to bear any weight on leg without having pain. EXAM: X-ray of the left knee, 3 views. COMPARISON: Outside MRI of the left knee dated 04/01/2019 from [facility]. FINDINGS: There are postoperative changes with methylmethacrylate cement placed within the distal femoral metaphysis representing the postoperative area. There are scattered curvilinear high density material posteriorly either within or adjacent to the knee joint space. There are also amorphous densities overlying the suprapatella bursa/prepatellar region which may be from postoperative changes. There is nonspecific soft tissue swelling seen anterior to the knee. There is swelling about the left knee also noted. There is suspected left knee effusion. There is no gross fracture or dislocation seen. IMPRESSION: 1. There is no acute fracture or dislocation seen. 2: There are postop changes of the distal femoral metaphysis with methylmethacrylate cement in the region. Comparison to prior postop x-ray imaging is suggested to evaluate for interval change of the postoperative area. Also evaluation of high density in the joint space and suprapatellar bursa region should also be evaluated for interval change and if they just represent postoperative changes. 3: There is swelling of the left lower extremity and prepatellar region. Suspected left knee effusion. Results of this report discussed with KATIE Simmons via the telephone on 05/20/2019 at 2153. Reviewed: Discussed w/Radiologist Departure Impression Primary Impression: Left knee pain Qualified Codes: M25.562 - Pain in left knee Additional Impression: Neoplasm of left femur Disposition: HOME, SELF-CARE Condition: Improved Departure-Patient Inst. Decision time for Depature: 21:30 Referrals: [facility] (PCP) Primary Care Physician GALE SOLIZ (Family) Primary Care Physician Patient Instructions: Knee Pain (DC) Add. Discharge Instructions: Ice to left knee for 20 minutes every 2 hours while awake. Follow-up with Dr. Canela if your symptoms are not improving or worsen. Use crutches at all times. Alternate between Ibuprofen and Tylenol every 4 hours. Sarabjit wrap to left knee. Return to emergency dept for new, urgent concerns. All discharge instructions reviewed with patient and/or family. Voiced understanding. GAYLA PEGUERO May 20, 2019 21:01
[2019-05-20 21:57] VITALS: BP 147/74
--- NOTE | 2019-05-20 22:05 | Diagnostic Imaging Report ---
CLINICAL INDICATION: Patient with history of bone cancer. Patient states biopsy of distal femur last month. Today states he is unable to bear any weight on leg without having pain. EXAM: X-ray of the left knee, 3 views. COMPARISON: Outside MRI of the left knee dated 04/01/2019 from [facility]. FINDINGS: There are postoperative changes with methylmethacrylate cement placed within the distal femoral metaphysis representing the postoperative area. There are scattered curvilinear high density material posteriorly either within or adjacent to the knee joint space. There are also amorphous densities overlying the suprapatella bursa/prepatellar region which may be from postoperative changes. There is nonspecific soft tissue swelling seen anterior to the knee. There is swelling about the left knee also noted. There is suspected left knee effusion. There is no gross fracture or dislocation seen. IMPRESSION: 1. There is no acute fracture or dislocation seen. 2: There are postop changes of the distal femoral metaphysis with methylmethacrylate cement in the region. Comparison to prior postop x-ray imaging is suggested to evaluate for interval change of the postoperative area. Also evaluation of high density in the joint space and suprapatellar bursa region should also be evaluated for interval change and if they just represent postoperative changes. 3: There is swelling of the left lower extremity and prepatellar region. Suspected left knee effusion. Results of this report discussed with KATIE Simmons via the telephone on 05/20/2019 at 9261. Dictated by: Dictated on workstation # [id number]
== END 2019-05-20 22:00 | disposition home or self-care (01) ==
LOC: EDUNIT# 20:32 → ER 20:34
DX: M25.562 Pain in left knee (principal); C79.51 Secondary malignant neoplasm of bone; E11.9 Type 2 diabetes mellitus without complications; J45.909 Unspecified asthma, uncomplicated; G47.30 Sleep apnea, unspecified; E78.00 Pure hypercholesterolemia, unspecified; I12.9 Hypertensive chronic kidney disease with stage 1 through stage 4 chronic kidney disease, or unspecified chronic kidney disease; N19 Unspecified kidney failure; G43.909 Migraine, unspecified, not intractable, without status migrainosus; K21.9 Gastro-esophageal reflux disease without esophagitis; M19.91 Primary osteoarthritis, unspecified site; M54.9 Dorsalgia, unspecified; Z90.5 Acquired absence of kidney; Z79.4 Long term (current) use of insulin; Z79.82 Long term (current) use of aspirin; Z79.899 Other long term (current) drug therapy; Z92.21 Personal history of antineoplastic chemotherapy; Z92.3 Personal history of irradiation; Z85.528 Personal history of other malignant neoplasm of kidney; Z99.2 Dependence on renal dialysis
CPT/HCPCS: 73562

== ENCOUNTER → 2019-07-19 | Outpatient (CLI) | payer MEDICARE, MEDICAID ==
[~2019-07-19] MED LIST changes: +CATHETER FLUSH 10 ML SYR IV PRN; +HOLD METFORMIN - RECEIVED CONTRAST 20 ML VIAL IV SCH; +IOHEXOL 350 MG/ML 100 ML (OMNIPAQUE 350) VIAL IV ONE; +NS 100 ML (IVPB) BAG IV ONE
--- NOTE | 2019-07-19 14:23 | Diagnostic Imaging Report ---
PROCEDURE; CT pelvis with and without contrast. TECHNIQUE: After oral contrast administration, imaging was obtained from the iliac crest to the lesser trochanters. Repeat imaging was performed after intravenous contrast administration. Auto Exposure Controls were utilized during the CT exam to meet ALARA standards for radiation dose reduction. INDICATION: Bilateral leg swelling for three to four months. COMPARISON: Correlation is made with prior CT from 02/27/2019. FINDINGS: There is marked edema throughout the subcutaneous tissues of the abdominal wall. There is moderate amount of free fluid in the pelvis. A midline ventral hernia is similar to prior exam. The bowel loops in the pelvis appear to be of normal caliber. Bladder is decompressed. There are enlarged lymph nodes in the inguinal regions bilaterally. No definite iliac or obturator lymphadenopathy is seen. Prostate is normal in size. Visualized bilateral common femoral as well as iliac veins appear patent. No definite thrombus is identified. Bony structures are nonacute. IMPRESSION: 1. Diffuse abdominal wall subcutaneous edema, suggestive of anasarca. 2. Moderate free fluid in the pelvis. 3. Bilateral inguinal lymphadenopathy. No definite iliac or obturator lymphadenopathy or mass is detected. Dictated by: Dictated on workstation # [id number]
== END ==
LOC: RAD 12:10
PROVIDERS: ATTEND Orthopaedic Surgery
DX: C79.51 Secondary malignant neoplasm of bone (principal); C64.9 Malignant neoplasm of unspecified kidney, except renal pelvis; R59.0 Localized enlarged lymph nodes
CPT/HCPCS: 72194

== ENCOUNTER → 2019-07-22 | Outpatient (CLI) | payer MEDICARE, MEDICAID ==
[~2019-07-22] VITALS: Ht 177.8 cm; Wt 138.0 kg
[~2019-07-22] MED LIST changes: -CATHETER FLUSH 10 ML SYR IV PRN; -HOLD METFORMIN - RECEIVED CONTRAST 20 ML VIAL IV SCH; -IOHEXOL 350 MG/ML 100 ML (OMNIPAQUE 350) VIAL IV ONE; +LIDOCAINE 1% INJ 20 ML 20 ML VIAL INJ ONE; -NS 100 ML (IVPB) BAG IV ONE
--- NOTE | 2019-07-22 12:43 | Diagnostic Imaging Report ---
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 Patient has prepatellar soft tissue swelling. Patient presents today for fluid aspiration from the prepatellar soft tissues on the left. DETAILS OF THE PROCEDURE: The patient was brought to the procedure room and placed on the table in the supine position. Ultrasound imaging of the prepatellar tissues was performed to evaluate for an appropriate entry site. The left knee was prepped and draped in the usual sterile fashion. A small amount of 1% lidocaine was utilized for local anesthesia. An 18-gauge needle was advanced into the complex fluid collection in the prepatellar soft tissues. A total of approximately 6 to 7 cc of yellowish fluid was aspirated. This will be sent for culture as well as cytology. Hemostasis was obtained using manual compression. The patient tolerated the procedure well and left the Department in stable condition. IMPRESSION: Successful ultrasound guided aspiration of fluid from the left prepatellar region. This will be sent for culture and sensitivity as well as cytology. Dictated by: Dictated on workstation # [id number]
== END ==
LOC: RAD 10:34
PROVIDERS: ATTEND Orthopaedic Surgery
DX: M25.462 Effusion, left knee (principal)
CPT/HCPCS: 87070; 87075; 87077; 87101; 87186; 87205

== ENCOUNTER 2019-09-25 13:10 | Emergency (ER) | payer MEDICARE, MEDICAID ==
[~2019-09-25 13:10] MED LIST changes: -LIDOCAINE 1% INJ 20 ML 20 ML VIAL INJ ONE
[2019-09-25] MEDS ORDERED: HEParin (CENTRAL IV FLUSH) 500 UNIT/5 ML SYR ONE (16:31)
[2019-09-25] MEDS ORDERED: CLINDAMYCIN 300 MG/2ML (CLEOCIN) VIAL ONE (16:31)
[2019-09-26 10:21] LABS: BASOPHILS % (AUTO) 1 % (0-10); EOSINOPHILS % (AUTO) 21 % (0-10); HEMATOCRIT 29 % (40-54); HEMOGLOBIN 9.2 G/DL (13.3-17.7); LYMPHOCYTES # (AUTO) 0.9 X 10^3 (1.0-4.0); LYMPHOCYTES % (AUTO) 12 % (12-44); MEAN CORPUSCULAR HEMOGLOBIN 28 PG (25-34); MEAN CORPUSCULAR HGB CONC 32 G/DL (32-36); MEAN CORPUSCULAR VOLUME 86 FL (80-99); MEAN PLATELET VOLUME 10.3 FL (7.4-10.4); MONOCYTES % (AUTO) 10 % (0-12); NEUTROPHILS % (AUTO) 56 % (42-75); PLATELET COUNT 203 10^3/uL (130-400); RED CELL DISTRIBUTION WIDTH 18.9 % (10.0-14.5); WHITE BLOOD COUNT 7.3 10^3/uL (4.3-11.0)
[2019-09-26 10:22] LABS: BASOPHILS # (AUTO) 0.1 10^3/uL (0.0-0.1); EOSINOPHILS # (AUTO) 1.5 10^3/uL (0.0-0.3); MONOCYTES # (AUTO) 0.7 X 10^3 (0.0-1.0)
[2019-09-26 10:23] LABS: BAND NEUTROPHILS 0 %; BASOPHILS % (MANUAL) 1 %; EOSINOPHILS % (MANUAL) 15 %; LYMPHOCYTES % (MANUAL) 19 %; MONOCYTES % (MANUAL) 11 %; NEUTROPHILS % (MANUAL) 54 %
[2019-09-26 10:24] LABS: ANISOCYTOSIS MODERATE; ERYTHROCYTE SEDIMENTATION RATE 56 MM/HR (0-30)
[2019-09-26 10:25] LABS: POTASSIUM 4.7 MMOL/L (3.6-5.0)
[2019-09-26 10:26] LABS: ALBUMIN 3.2 GM/DL (3.2-4.5); BILIRUBIN,TOTAL 0.6 MG/DL (0.1-1.0); CALCIUM 8.4 MG/DL (8.5-10.1); CREATININE SERUM 7.39 MG/DL (0.60-1.30)
--- NOTE | 2019-09-26 15:32 | Diagnostic Imaging Report ---
EXAMINATION: Left knee 3 views on 09/25/2019 at 2:03 PM INDICATION: Left knee draining. 3 views left knee demonstrate normal alignment. A sclerotic lesion of the distal femur with anterior cortical interruption appears similar to prior exam. There is significant soft tissue swelling in the prepatellar tissues. No definite soft tissue gas is identified on today's study. No significant joint effusion is seen. No definite fracture is detected. IMPRESSION: Sclerotic distal femur lesion, similar to prior exam. Significant overlying prepatellar soft tissue swelling is present. No soft tissue gas is seen. Dictated by: Dictated on workstation # [id number]
--- NOTE | 2019-09-28 09:24 | NUR ---
In pt's chart due to recording lab results in book.
== END 2019-09-25 16:48 | disposition home or self-care (01) ==
LOC: ER 13:10 → EDUNIT# 13:10 → ER 16:48
DX: T81.89XA Other complications of procedures, not elsewhere classified, initial encounter (principal); C64.9 Malignant neoplasm of unspecified kidney, except renal pelvis; C79.51 Secondary malignant neoplasm of bone; N18.6 End stage renal disease; Z99.2 Dependence on renal dialysis
CPT/HCPCS: 36415; 73562; 80053; 83605; 85007; 85027; 85652; 86141; 87040; 87070; 87205; 96372

== ENCOUNTER 2019-11-27 12:22 | Outpatient (CLI) | payer MEDICARE, MEDICAID ==
[~2019-11-27] VITALS: Ht 177.8 cm; Wt 132400.0 kg
[~2019-11-27 12:22] MED LIST changes: +AMLO-250 PO; -AMLO5TAB9 PO; -CAPS42.513 TP; +CAPS42.514 TP; +CLN.1T PO; +CLN.2T PO; -CLON0.1T PO
[2019-11-27 12:30] VITALS: BP 157/85
[2019-11-27] MEDS ORDERED: NS IV 500 ML 500 ML IV SCH (13:00)
[2019-11-27] MEDS ORDERED: FOLIC ACID PO (13:28)
[2019-11-27] MEDS ORDERED: CABO40TA PO (13:28)
[2019-11-27 13:49] VITALS: BP 151/87
[2019-11-27 14:05] VITALS: BP 150/90
[2019-11-27 16:25] VITALS: BP 159/92
== END 2019-11-27 16:30 | disposition home or self-care (01) ==
LOC: SDC 12:22
PROVIDERS: ATTEND Internal Medicine Nephrology
DX: N18.6 End stage renal disease (principal)
CPT/HCPCS: 36430 ×2; 86850; 86900; 86901; 86920; P9016

== ENCOUNTER 2020-02-02 13:23 | Emergency (ER) | payer MEDICARE, MEDICAID ==
[~2020-02-02] VITALS: Ht 177.8 cm; Wt 139.3 kg
[~2020-02-02 13:23] MED LIST changes: +CABO40TA PO; +FOLIC ACID PO; -MONT10TA26 PO; +MONT10TA97 PO
[2020-02-02 15:38] LABS: BASOPHILS # (AUTO) 0.1 10^3/uL (0.0-0.1); BASOPHILS % (AUTO) 1 % (0-10); EOSINOPHILS # (AUTO) 0.4 10^3/uL (0.0-0.3); EOSINOPHILS % (AUTO) 5 % (0-10); HEMATOCRIT 39 % (40-54); HEMOGLOBIN 11.6 g/dL (13.3-17.7); LYMPHOCYTES # (AUTO) 0.7 X 10^3 (1.0-4.0); LYMPHOCYTES % (AUTO) 8 % (12-44); MEAN CORPUSCULAR HEMOGLOBIN 27 pg (25-34); MEAN CORPUSCULAR HGB CONC 30 g/dL (32-36); MEAN CORPUSCULAR VOLUME 91 fL (80-99); MEAN PLATELET VOLUME 10.7 fL (9.0-12.2); MONOCYTES # (AUTO) 0.7 X 10^3 (0.0-1.0); MONOCYTES % (AUTO) 8 % (0-12); NEUTROPHILS # (AUTO) 6.2 X 10^3 (1.8-7.8); NEUTROPHILS % (AUTO) 78 % (42-75); PLATELET COUNT 211 10^3/uL (130-400)
--- NOTE | 2020-02-02 15:42 | Diagnostic Imaging Report ---
EXAMINATION: Chest radiograph, portable AP view. DATE: 02/02/2020 3:28 PM INDICATION: 49-year-old male, shortness of breath. COMPARISON: February 27, 2019. FINDINGS: There is a right-sided port catheter. The tip is not well seen. Heart size and mediastinal contours are most likely grossly unchanged. There is no identified pneumothorax. There is near complete opacification of the left hemithorax which is an increase in consolidation since comparison exam. There are right perihilar opacities. There are mildly prominent pulmonary vascular markings. IMPRESSION: 1. Near complete opacification of the left hemithorax which is an interval increase in degree of consolidation since February 27, 2019. This may relate to pleural fluid, infiltrative process, and/or atelectasis. 2. Nonspecific right perihilar opacities and mildly prominent pulmonary vascular markings with fairly similar appearance to the comparison study. Dictated by: Dictated on workstation # [id number]
[2020-02-02 15:43] LABS: POTASSIUM 6.3 MMOL/L (3.6-5.0)
[2020-02-02 15:44] LABS: CALCIUM 8.4 MG/DL (8.5-10.1)
[2020-02-02 15:49] LABS: CREATININE SERUM 12.79 MG/DL (0.60-1.30)
--- NOTE | 2020-02-02 16:19 | ED Cough/URI ---
General Chief Complaint: Respiratory Problems Stated Complaint: SOA/ASTHMA Nursing Triage Note: Patient reports soa x 2 weeks with it becoming severe this morning Sepsis Screen: No Definite Risk Source: patient Exam Limitations: no limitations History of Present Illness Date Seen by Provider: Feb 02, 2020 Time Seen by Provider: 16:16 Initial Comments To ER with shortness of breath for the past 2 weeks that got significantly worse this morning. He is also had left knee swelling and pain for the past 1 week. No fevers or chills. No injury. 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 Canela at with the first being in April and the second being in November 2019. He states it has also spread to his lung and he typically has fluid on his lungs. He follows with Dr. Tao from oncology at [facility] in [place] and primary care is [facility] in [place]. He does peritoneal dialysis at home between 3-5 times a week. Last he modialysis on monday or monday. Timing/Duration: constant Severity/Quality: moderate Associated Symptoms: shortness of breath Allergies and Home Medications Allergies Coded Allergies: fluticasone (Verified Allergy, Unknown, asthma attack, 11/23/17) salmeterol (Verified Allergy, Unknown, asthma attack, 11/23/17) Home Medications Albuterol Sulfate 6.7 Gm Hfa.aer.ad, 2 PUFF IH QID PRN for SHORTNESS OF BREATH, (Reported) Albuterol Sulfate 2.5 Mg/3 Ml Vial.neb, 2.5 MG IH QID PRN for WHEEZING, (Reported) Aspirin 81 Mg Tab.chew, 81 MG PO HS, (Reported) Cabozantinib S-Malate 40 Mg Tablet, 40 MG PO DAILY, (Reported) Calcitriol 0.5 Mcg Capsule, 0.5 MCG PO DAILY, (Reported) Capsaicin 42.5 Gm Cream..g., 3 GM TP Q6H PRN for PAIN-MODERATE Prescribed by: JUNAID OJEDA on 12/12/182129 Clonidine HCl 0.1 Mg Tablet, 0.1 MG PO TID, (Reported) take this dose during week off of sutent Clonidine HCl 0.2 Mg Tablet, 0.2 MG PO TID, (Reported) take this dose during sutent treatment Fluticasone/Vilanterol 1 Each Blst.w.dev, 1 EACH IH DAILY, (Reported) Furosemide 80 Mg Tablet, 80 MG PO DAILY@1200, (Reported) Ipratropium/Albuterol Sulfate 3 Ml Ampul.neb, 3 ML IH QID PRN for SHORTNESS OF BREATH, (Reported) Metoprolol Tartrate 100 Mg Tablet, 100 MG PO BID, (Reported) Minoxidil 10 Mg Tab, 20 MG PO BID, (Reported) take 2 (10mg) tabs Montelukast Sodium 10 Mg Tablet, 10 MG PO HS, (Reported) Oxycodone HCl 30 Mg Tablet, 30 MG PO Q6H PRN for PAIN-MILD TO MODERATE, (Reported) Spironolactone 50 Mg Tablet, 50 MG PO DAILY@1200, (Reported) [Folic Acid] , 1 MG PO DAILY, (Reported) Patient Home Medication List Home Medication List Reviewed: Yes Review of Systems Review of Systems Constitutional: see HPI; No chills, No fever EENTM: see HPI Respiratory: dyspnea on exertion, orthopnea, short of breath Cardiovascular: no symptoms reported Musculoskeletal: see HPI, joint swelling Skin: no symptoms reported Psychiatric/Neurological: No Symptoms Reported Hematologic/Lymphatic: No Symptoms Reported Past Vjqhabk-Daujsh-Pdnadv Hx Patient Social History Alcohol Use: Denies Use Recreational Drug Use: No 2nd Hand Smoke Exposure: No Recent Foreign Travel: No Contact w/Someone Who Travel: No Recent Infectious Disease Expo: No Recent Hopitalizations: No Immunizations Up To Date Tetanus Booster (TDap): Unknown PED Vaccines UTD: No Date of Pneumonia Vaccine: Nov 07, 2015 Date of Influenza Vaccine: Oct 31, 2018 Seasonal Allergies Seasonal Allergies: Yes Past Medical History Surgeries: Yes (HERNIA REPAIR, R MENISCUS REPAIR x2, dialysis port R K IDNEY KALVAK ) Abdominal, Nephrectomy, Orthopedic Respiratory: Yes (ASTHMA, STABLE LUNG MASS,) Asthma, Sleep Apnea Currently Using CPAP: Yes Currently Using BIPAP: No Cardiac: Yes High Cholesterol, Hypertension Neurological: Yes Headaches /Migraines Reproductive Disorders: No Sexually Transmitted Disease: No HIV/AIDS: No Genitourinary: Yes (right kidney cancer, kidney removed) Renal Failure, Dialysis Gastrointestinal: Yes (TAKES PEPCID NEEDED) Gastroesophageal Reflux Musculoskeletal: Yes (MENISCUS TEAR Left KNEE) Arthritis, Chronic Back Pain Endocrine: Yes (STARTED DIALYSIS IN NOVEMBER 2015) Diabetes, Insulin dep Loss of Vision: Bilateral Hearing Impairment: Denies Cancer: Yes (PATIENT BEING MONITORED BY DR. LINDER FOR LUNG AND RENAL MASSES) Kidney Did You Recieve Any Treatments: Yes What Type of Treatment Did You: Chemotherapy, Surgical Intervention Psychosocial: No Integumentary: No Blood Disorders: Yes (ANEMIA) Adverse Reaction/Blood Tranf: No (N/A) Family Medical History Arthritis 19 MOTHER (grandmother) Asthma 19 MOTHER (grandmother) Cancer of mouth 19 MOTHER (throat) Hypertension 19 MOTHER (grandmother) Respiratory disorder 19 MOTHER (grandmother) Seizure disorder 19 MOTHER (aunt) Thyroid disease 19 MOTHER (aunt) No Family History of: AIDS Abdominal aortic aneurysm Jaspreet's disease Alcoholism Alzheimer's disease Cardiovascular disease Cataracts Colon cancer Completed stroke Congenital disease Congenital heart disease Coronary thrombosis Cystic fibrosis Deafness or hearing loss Dementia Diabetes mellitus Drug abuse Dysphasia Fibrocystic disease of breast Gastroenteritis Glaucoma Headache disorder Hypercholesterolemia Infertility Kidney disease Myocardial infarction Neoplasm Osteoporosis Parkinson's disease Severe allergy Tuberculosis Visual disorder Physical Exam Vital Signs - First Documented 02/02/20 15:12 Temp 37.1 Pulse 76 Resp 28 B/P (MAP) 181/104 (129) Pulse Ox 84 O2 Delivery Room Air Capillary Refill : Less Than 3 Seconds Height: 5'10.00" Weight: 277lbs. 0.0oz. 125.011596tm; 44.00 BMI Method:Stated General Appearance: WD/WN, no apparent distress Eyes: Bilateral Eye Normal Inspection, Bilateral Eye PERRL, Bilateral Eye EOMI Neck: non-tender, full range of motion, other (Jugular venous distention) Respiratory: no respiratory distress, no accessory muscle use, other (Diminished in the left lung) Cardiovascular: regular rate, rhythm, no murmur Gastrointestinal: normal bowel sounds, non tender, soft Extremities: other (Pitting edema up to the thighs bilaterally. There is fluctuance and bulging over the incision on the left knee. Cleansed with Betadine and allowed it to dry, anesthetized with topical lidocaine and then used an 18-gauge needle and was able to aspirate 18 mL of serosanguineous material. This was sent to lab as it was believed to be synovial fluid. Sent for crystal analysis, cell count and culture.) Neurologic/Psychiatric: alert, normal mood/affect, oriented x 3 Skin: normal color, warm/dry Progress/Results/Core Measures Suspected Sepsis Recent Fever Within 48 Hours: No Infection Criteria Present: None New/Unexplained Altered Menta: No Sepsis Screen: No Definite Risk SIRS Temperature: Pulse: 76 Respiratory Rate: 28 Laboratory Tests 02/02/20 15:10: White Blood Count 8.0 Blood Pressure 181 /104 Mean: 129 Laboratory Tests 02/02/20 15:10: Creatinine 12.79H, Platelet Count 211 Results/Orders Lab Results Laboratory Tests Test 02/02/20 15:10 02/02/20 16:12 Range/Units White Blood Count 8.0 4.3-11.0 10^3/uL Red Blood Count 4.30 4.30-5.52 10^6/uL Hemoglobin 11.6 L 13.3-17.7 g/dL Hematocrit 39 L 40-54 % Mean Corpuscular Volume 91 80-99 fL Mean Corpuscular Hemoglobin 27 25-34 pg Mean Corpuscular Hemoglobin Concent 30 L 32-36 g/dL Red Cell Distribution Width 16.4 H 10.0-14.5 % Platelet Count 211 130-400 10^3/uL Mean Platelet Volume 10.7 9.0-12.2 fL Immature Granulocyte % (Auto) 0 % Neutrophils (%) (Auto) 78 H 42-75 % Lymphocytes (%) (Auto) 8 L 12-44 % Monocytes (%) (Auto) 8 0-12 % Eosinophils (%) (Auto) 5 0-10 % Basophils (%) (Auto) 1 0-10 % Neutrophils # (Auto) 6.2 1.8-7.8 X 10^3 Lymphocytes # (Auto) 0.7 L 1.0-4.0 X 10^3 Monocytes # (Auto) 0.7 0.0-1.0 X 10^3 Eosinophils # (Auto) 0.4 H 0.0-0.3 10^3/uL Basophils # (Auto) 0.1 0.0-0.1 10^3/uL Immature Granulocyte # (Auto) 0.0 0.0-0.1 10^3/uL Sodium Level 139 135-145 MMOL/L Potassium Level 6.3 H 3.6-5.0 MMOL/L Chloride Level 103 98-107 MMOL/L Carbon Dioxide Level 21 21-32 MMOL/L Anion Gap 15 H 5-14 MMOL/L Blood Urea Nitrogen 73 H 7-18 MG/DL Creatinine 12.79 H 0.60-1.30 MG/DL Estimat Glomerular Filtration Rate 5 BUN/Creatinine Ratio 6 Glucose Level 86 70-105 MG/DL Calcium Level 8.4 L 8.5-10.1 MG/DL B-Type Natriuretic Peptide 977.9 H <100.0 PG/ML Coronavirus 2019 (LAURA) Negative Negative Body Fluid Source SYNOVIAL Body Fluid Color RED Body Fluid Appearance MKD BLDY Body Fluid WBC 7750 /uL Body Fluid RBC 5499577 /uL Body Fluid Polynuclear WBCs 100 % Body Fluid Mononuclear WBCs % Body Fluid Lymphocytes % Body Fluid Other Cells % Body Fluid Crystals URIC ACID My Orders Orders - HARDY HUERTA APRN Covid 19 Inhouse Test (02/02/20 15:10) Chest 1 View, Ap/Pa Only (02/02/20 15:10) Cbc With Automated Diff (02/02/20 15:18) BNP (02/02/20 15:18) Basic Metabolic Panel (02/02/20 15:18) Ed Iv/Invasive Line Start (02/02/20 15:18) Body Fluid Cell Count (02/02/20 15:29) Crystals,Body Fluid (02/02/20 15:29) Body Fluid Culture (02/02/20 15:29) Knee, Left, 3 Views (02/02/20 16:14) Coronavirus Sars-Cov-2 So 2019 (02/02/20 15:10) Ekg Tracing (02/02/20 17:04) Vital Signs/I&O 02/02/20 15:12 Temp 37.1 Pulse 76 Resp 28 B/P (MAP) 181/104 (129) Pulse Ox 84 O2 Delivery Room Air Capillary Refill : Less Than 3 Seconds Blood Pressure Mean: 129 Diagnostic Imaging Diagonstic Imaging: Xray Plain Films/CT/US/NM/MRI: chest Comments NAME: CYNDEE RBITO MED REC#: [id number] PT STATUS: REG ER : 1970 PHYSICIAN: HARDY HUERTA APRN ADMIT DATE: 02/02/20/ER Signed Date of Exam:02/02/20 CHEST 1 VIEW, AP/PA ONLY EXAMINATION: Chest radiograph, portable AP view. DATE: 02/02/2020 3:28 PM INDICATION: 49-year-old male, shortness of breath. COMPARISON: February 27, 2019. FINDINGS: There is a right-sided port catheter. The tip is not well seen. Heart size and mediastinal contours are most likely grossly unchanged. There is no identified pneumothorax. There is near complete opacification of the left hemithorax which is an increase in consolidation since comparison exam. There are right perihilar opacities. There are mildly prominent pulmonary vascular markings. IMPRESSION: 1. Near complete opacification of the left hemithorax which is an interval increase in degree of consolidation since February 27, 2019. This may relate to pleural fluid, infiltrative process, and/or atelectasis. 2. Nonspecific right perihilar opacities and mildly prominent pulmonary vascular markings with fairly similar appearance to the comparison study. Dictated by: Dictated on workstation # [id number] Dict: 02/02/20 1535 Trans: 02/02/20 1617 PJE [id number] Interpreted by: TIMA ABREU MD Electronically signed by: TIMA ABREU MD 02/02/20 1617 Departure Communication (Admissions) 1633-spoke with to transfer. 1825-Dr Ceballos has accepted pt to . EMS is here to transport. Impression Primary Impression: Metastatic cancer Additional Impressions: Renal cell carcinoma Hemarthrosis, left knee CKD (chronic kidney disease) requiring chronic dialysis Dyspnea Pleural effusion, left Disposition: XFER SHT-TRM HOSP Condition: Stable Departure-Patient Inst. Referrals: [facility] (PCP) Primary Care Physician GALE SOLIZ (Family) Primary Care Physician HARDY HUERTA APRN Feb 02, 2020 16:19
--- NOTE | 2020-02-02 16:52 | Diagnostic Imaging Report ---
EXAMINATION: Left knee radiographs, 3 views. COMPARISON: September 25, 2019. HISTORY: 49-year-old male, recent surgery. Knee pain and swelling. FINDINGS: There is prominent soft tissue swelling anteriorly. There are areas of abnormal calcific attenuation anteriorly centered at and about the level of the patella. There is also calcific attenuation at the posterior aspect of the knee joint. There is abnormal high attenuation at the level of the distal femoral metaphysis measuring approximately 4.7 x 3.9 cm in size. This is also present on September 25, 2019. This potentially could relate to procedural related material or osteoid matrix. Recommend correlation. This does not have a narrow zone of transition. There is a knee joint effusion. There is no identified acute fracture. IMPRESSION: 1. Abnormal high attenuation in the distal femoral metaphysis which could be postoperative related material and/or osteoid matrix. Recommend correlation with history. 2. Prominent soft tissue swelling anteriorly with areas of abnormal calcific attenuation both anterior and posterior to the knee joint. This is fairly similar in appearance to September 25, 2019. This is nonspecific. This potentially could relate to malignancy, complicated fluid collection or other processes including metastatic calcification or findings related to gout. Further evaluation with MRI knee without and with intravenous contrast is recommended. Correlation with history is also needed. Dictated by: Dictated on workstation # [id number]
[2020-02-02 17:35] LABS: BODY FLUID COLOR RED; BODY FLUID SOURCE SYNOVIAL
[2020-02-02 17:36] LABS: BODY FLUID RBC COUNT 1185000 /uL; BODY FLUID WBC TOTAL COUNT 7750 /uL
[2020-02-02 17:47] LABS: BODY FLUID APPEARENCE MKD BLDY
[2020-02-02 18:35] VITALS: BP 146/83
== END 2020-02-02 18:40 | disposition short-term general hospital (02) ==
LOC: EDUNIT# 13:23 → ER 13:29
DX: C78.00 Secondary malignant neoplasm of unspecified lung (principal); C64.1 Malignant neoplasm of right kidney, except renal pelvis; M25.062 Hemarthrosis, left knee; I12.0 Hypertensive chronic kidney disease with stage 5 chronic kidney disease or end stage renal disease; N18.6 End stage renal disease; R06.00 Dyspnea, unspecified; J90 Pleural effusion, not elsewhere classified; J45.909 Unspecified asthma, uncomplicated; G89.29 Other chronic pain; M54.9 Dorsalgia, unspecified; Z82.61 Family history of arthritis; Z82.49 Family history of ischemic heart disease and other diseases of the circulatory system; Z80.8 Family history of malignant neoplasm of other organs or systems; Z88.8 Allergy status to other drugs, medicaments and biological substances; Z20.828 Contact with and (suspected) exposure to other viral communicable diseases; Z79.82 Long term (current) use of aspirin; Z79.891 Long term (current) use of opiate analgesic
CPT/HCPCS: 71045; 73562; 80048; 83880; 85025; 87070; 87205; 89051; 89060; 93005; 99285; U0002; 36415; 87635